=== PATIENT | male | born 1975 | race African-American/Black ===

== ENCOUNTER 2017-08-26 07:38 | Day surgery (SDC) | payer OTHER ==
[2017-08-25 13:47] VITALS: BMI 20.7
[2017-08-26 10:19] VITALS: BP 154/96; TEMP 98.2
--- NOTE | 2017-08-26 11:12 | SPC ---
LEFT UPPER EXTREMITY DIALYSIS FISTULOGRAM: Date: 08/26/17 HISTORY: Renal failure. Poor functionating of dialysis fistula. FINDINGS: After explaining the procedure and answering all questions, the left upper extremity was prepped and draped in the usual sterile fashion. Sterile technique, buffered local anesthesia, and a 22 gauge nee dle were used to carefully access the left forearm cephalic fistula just above the level of the wrist . A 4 Welsh sheath was placed for serial imaging. There is good flow and clearing throughout the left forearm cephalic fistula with small collaterals j ust below the level of the elbow. At the level of the antecubital fossa, the flow crosses to the ceph alic and basilic outflow. The cher[place] cephalic vein is extremely small. Reflux angiogram shows arterial anastomosis to be widely patent. There is good flow into the superior vena cava. No evidence of stricture or obstruction. No evidence of thrombus. Catheter was removed and hemostasis was obtained using direct pressure. The patient tolerated the pro cedure well and was eventually dismissed in good condition. IMPRESSION: Good flow and function of left upper extremity dialysis fistula, as detailed above. POS: [facility]
== END 2017-08-26 09:10 | disposition home or self-care (01) ==
LOC: SPEC 07:38
PROVIDERS: ATTEND Internal Medicine Nephrology
PROC: B51W1ZZ Fluoroscopy of Dialysis Shunt/Fistula using Low Osmolar Contrast (ICD-10-PCS; principal; 2017-08-26)
DX: T82.898A Other specified complication of vascular prosthetic devices, implants and grafts, initial encounter (principal); N18.9 Chronic kidney disease, unspecified; Z79.82 Long term (current) use of aspirin; Z79.899 Other long term (current) drug therapy
CPT/HCPCS: 36901

== ENCOUNTER 2018-10-21 10:06 | Outpatient (CLI) | payer OTHER ==
--- NOTE | 2018-10-21 10:50 | RAD ---
TWO VIEWS CHEST: Comparison: 06-14-16 History: Tuberculosis evaluation. FINDINGS: Two views of the chest show normal sized cardiomediastinal silhouette. There is no evidence of consol idation, mass, or pleural effusion. The bones are unremarkable. IMPRESSION: No evidence of acute cardiopulmonary disease. POS: [facility]
== END 2018-10-21 10:07 | disposition home or self-care (01) ==
LOC: RAD 10:06
PROVIDERS: ATTEND Family Medicine
DX: Z11.1 Encounter for screening for respiratory tuberculosis (principal)
CPT/HCPCS: 71046

== ENCOUNTER 2019-07-15 17:33 | Inpatient (IN) | payer OTHER ==
[~2019-07-15 17:33] MED LIST: Iopamidol 370 76% 100 ML VIAL ONE; Iopamidol 370 76% 50 ML VIAL FS ONE
[2019-07-15] MEDS ORDERED: Dextrose 50% Abboject 50 ML SYRINGE ONE (17:47)
[2019-07-15] MEDS ORDERED: Calcium Chloride 1 GM/10 ML Abboject SYRINGE ONE (17:52)
[2019-07-15 18:14] LABS: Hemoglobin 3.2 g/dL (14.0-18.0); Mean Corpuscular HGB CONC 31.7 g/dL (32.0-36.0); Mean Corpuscular Hemoglobin 28.6 pg (27.0-31.0); Mean Corpuscular Volume 90.2 fL (78.0-98.0); Mean Platelet Volume 7.9 fL (7.4-10.4); Platelet Count 155 thou/uL (130-400); RBC Distribution Width 18.9 % (11.5-14.5); Red Blood Cell (RBC) Count 1.11 mill/uL (4.70-6.10)
[2019-07-15 18:20] LABS: Phosphorus 9.6 mg/dL (2.3-4.7)
--- NOTE | 2019-07-15 18:22 | RAD ---
CHEST ONE VIEW: 07/15/19 INDICATION: Altered mental status. COMPARISON: Two view chest radiograph 10/21/18. FINDINGS: There is cardiomegaly, pulmonary vascular congestion, small bilateral pleural effusions. There is anibal pected bibasilar atelectasis. No pneumothorax evident. No acute osseous abnormality is evident. IMPRESSION: Cardiomegaly with pulmonary vascular congestion and small bilateral pleural effusions. Recommend payton elation for volume overload or CHF. POS: [facility]
[2019-07-15 18:25] LABS: ALT (SGPT) 81 U/L (8-55); AST (SGOT) 73 U/L (5-34); Albumin 3.3 g/dL (3.5-5.0); Alkaline Phosphatase 51 U/L (40-110); Anion Gap 37 mmol/L (10-20); BUN (Urea Nitrogen) 79 mg/dL (8.9-20.6); Bilirubin, Total 0.6 mg/dL (0.2-1.2); Calc. Creatinine Clearance 0 mL/min (70-130); Calcium 8.1 mg/dL (7.8-10.44); Carbon Dioxide 11 mmol/L (22-29); Chloride 97 mmol/L (98-107); Estimated GFR-MDRD 5; Globulin 2.1 g/dL (2.4-3.5); Magnesium 2.5 mg/dL (1.6-2.6); Potassium 5.4 mmol/L (3.5-5.1); Protein, Total 5.4 g/dL (6.0-8.3); Sodium 140 mmol/L (136-145)
[2019-07-15 18:34] LABS: Glucose 28 mg/dL (70-105)
[2019-07-15 18:35] LABS: Band 22 % (5-11); Hypochromia SLIGHT = 6-15 cells (100X) (0-5/hpf); Lymphocytes 6 % (21-51); MDiff Complete? YES; Monocytes 4 % (0-10); Neutrophil 68 % (42-75); Platelet Morphology Comment Appears Adequate; Polychromasia MODERATE = 3-4 cells (100X) (0-2/hpf); Reflex for Review?? YES; Schistocytes SLIGHT = 2-5 cells (100X) (0-1/hpf); Target Cells SLIGHT = 2-5 cells (100X) (0-1/hpf); Tear Drops SLIGHT = 2-5 cells (100X) (0-1/hpf)
--- NOTE | 2019-07-15 18:58 | CT ---
EXAM: CT ABDOMEN AND PELVIS HISTORY: Abdominal pain. Weakness. Shortness of breath. Right lower quadrant pain. COMPARISON: None Correlation: Aortic dissection protocol 03/19/2012 Procedure: Multiple contiguous axial images were obtained and a CT of the abdomen and pelvis with IV contrast. C oronal reformats were performed. FINDINGS: Lower Chest: Small to moderate bilateral hyperdense pleural effusions. Adjacent lung consolidation du e to atelectasis, aspiration or pneumonia Vessels: Normal caliber aorta. No periaortic fat stranding Heart: Cardiomegaly. Hypertrophy of the left ventricle. No significant pericardial fluid Abdomen: Portal vein:Patent Gallbladder: No calcified gallstones. Normal caliber wall. Liver: 0.5 cm hypodensity in the left hepatic lobe. 0.6 cm hypodensity in the right hepatic lobe. No enhancing masses in the liver. Pancreas: within normal limits. Spleen: within normal limits. Adrenals: within normal limits. Kidneys: Multiple mixed attenuation cyst occupy the left and right kidney. There is a large right per inephric mixed attenuation mass which may represent a large perinephric hematoma from a ruptured cyst. This mixed attenuation focus appears to be external to the right kidney and is likely contained in the right perinephric space. There is anterior displacement of the right kidney. There is stretching of the right renal artery and right renal vein. There is also associated mass effect upon the inferior vena cava. There are 2 small foci of hyperdensity which may represent blush of extravasated contrast along the inferior pole of the right kidney. The area of blush contrast measure s 1.3 x 0.6 cm. Overall, this hematoma measures 11.8 x 8.1 x 12.3 cm. Adjacent complex fluid attenuation is noted. Bilaterally no definite obstructive uropathy. Peritoneum: Extensive complex fluid throughout the abdomen. There is displacement of multiple small b owel loops and colon. Bowel: Limited evaluation by the absence of oral contrast. No evidence of high-grade bowel obstructio n. Limited evaluation of the ileocecal junction. Appendix is difficult to appreciate as is the cecal apex. Mesentery and Retroperitoneum: No obvious lymphadenopathy. Abdominal Wall: Anterior abdominal wall containing a segment of nonobstructed colon through the defec t. Pelvis: Reproductive Organs: Reproductive organs are unremarkable. Pelvis: Extensive hyperdense fluid in the pelvis. Bladder: Bladder wall is thickened. Bones: No lytic or blastic lesions. IMPRESSION: 1. Multiple renal cortical mixed attenuation density, likely secondary to dialysis. 2. Mixed attenuation right perinephric mass likely representing a perinephric hematoma that is confin ed to the perinephric space. Small blush of contrast may represent active extravasation. 3. Complex fluid in the abdomen or pelvis. 4. Mass effect upon the inferior vena cava with narrowing. There is stretching and splaying of the ri ght renal artery and vein. There is displacement of multiple small bowel loops. 5. Results study discussed with Dr. Boyd 07/15/2019 at 6:55 PM Code CR Transcribed Date/Time: 07/15/2019 7:18 PM
[2019-07-15] MEDS ORDERED: Piperacillin/Tazobactam 4.5 GM VIAL ONE (19:12)
[2019-07-15] MEDS ORDERED: Metoprolol Tartrate 5 MG/5 ML VIAL ONE ×2 (20:25→20:45)
[2019-07-15 20:44] LABS: Actual Bicarbonate (HCO3a) 15.5 mEq/L (22-28); Analyzer IN Cardio OR; Base Excess (BEa) -9.3 mEq/L (-2.0 to +3.0); CO2 Tension 29.1 mmHg (35.0-45.0); Calcium, Ionized 0.93 mmol/L (1.12-1.30); Carboxyhemoglobin (COHb) 1.1 gm% (0.0-3.0); Hemoglobin (Hb) 6.4 g/dL (14.0-18.0); O2 Tension (PaO2) 77.1 mmHg (80.0-100.0); Potassium - ABG Lab 5.11 mmol/L (3.70-5.30); pH, Arterial 7.35 (7.35-7.45)
[2019-07-15] MEDS ORDERED: Dextrose 50% Abboject 50 ML SYRINGE SLOW IVP PRN (20:51)
[2019-07-15] MEDS ORDERED: Dextrose 5% in Water 1,000 ML IV PRN (20:51)
[2019-07-15] MEDS ORDERED: hydrALAZINE 20 MG/ML VIAL ONE (21:02)
[2019-07-15 22:11] LABS: INR-International Normal Ratio 1.8; PTT 29.8 SEC (22.9-36.1); Prothrombin Time 21.1 SEC (12.0-14.7)
[2019-07-15 22:33] LABS: Anisocytosis SLIGHT = 6-15 cells (100X) (0-5/hpf); Band 19 % (5-11); Hemoglobin 7.5 g/dL (14.0-18.0); Lymphocytes 4 % (21-51); MDiff Complete? YES; Mean Corpuscular HGB CONC 33.5 g/dL (32.0-36.0); Mean Corpuscular Hemoglobin 30.1 pg (27.0-31.0); Mean Corpuscular Volume 89.8 fL (78.0-98.0); Mean Platelet Volume 8.1 fL (7.4-10.4); Monocytes 3 % (0-10); Neutrophil 74 % (42-75); Platelet Count 97 thou/uL (130-400); RBC Distribution Width 14.6 % (11.5-14.5); Red Blood Cell (RBC) Count 2.49 mill/uL (4.70-6.10)
[2019-07-15 22:56] LABS: Lactic Acid 5.8 mmol/L (0.5-2.2)
[2019-07-15] MEDS: hydrALAZINE 25 MG TAB PO SCH (23:26)
[2019-07-16] MEDS ORDERED: Ondansetron PF 4 MG/2 ML Vial IVP PRN (01:18)
[2019-07-16] MEDS ORDERED: Ondansetron ODT 4 MG TAB PO PRN (01:18)
--- NOTE | 2019-07-16 01:55 | PDOC.HOSPP ---
- Subjective Encounter Date: 07/16/19 Encounter Time: 01:00 Subjective: Patient seen and examined. No new complaints. consult placed for medical management. Case of an 43y/o male with pmhx of esrd on h/d, polycystic kidney disease and hypertension who comes to hospital due to generalize weakness, sob and abdominal pain of a few days of duration. patient he was doing relatively well until 2-3 days ago when abdominal pain and sob start to get worse until today when its was unbearable for which he came to hospital for evaluation. at the ed patient had a ct and showed Right ruptured kidney cyst with a hg of 3. pt was taken emergently to or by dr boyle who placed 3 coils to stop the bleeding. dr huertas pts economic development director was called for further management and hospitalist were consulted for medical management. - Objective Vital Signs & Weight: Vital Signs (12 hours) Temp Pulse Ox 07/16/19 00:00 98.8 F 07/15/19 22:39 92 L 07/15/19 22:00 80 L 07/15/19 21:42 99.0 F Weight Weight 140 lb Most Recent Monitor Data Heart Rate from ECG 99 NIBP 169/108 NIBP BP-Mean 139 Respiration from ECG 24 SpO2 100 I&O: 07/14/19 07/15/19 07/16/19 06:59 06:59 06:59 Output Total 30 Balance -30 Result Diagrams: 07/15/19 21:50 07/15/19 17:45 Additional Labs: Accuchecks 07/16/19 07/15/19 07/15/19 00:26 21:41 18:26 POC Glucose 88 62 L 106 07/15/19 17:49 POC Glucose Less than 35 L* Hospitalist ROS - Review of Systems All other systems reviewed; all pertinent +/- noted in HPI/Subj - Medication Medications: Active Medications Generic Name Dose Route Start Last Admin Trade Name Freq PRN Reason Stop Dose Admin Dextrose/Water 25 gm 07/15/19 20:51 07/15/19 21:40 Dextrose 50% SLOW IVP 25 gm PRN PRN Administration Hypoglycemia Hydralazine HCl 25 mg 07/15/19 21:00 07/15/19 23:26 Apresoline PO Not Given TID SHARAD - Exam General Appearance: ill appearing Eye: PERRL, anicteric sclera ENT: normocephalic atraumatic, no oropharyngeal lesions Neck: supple, symmetric, no JVD, no thyromegaly Heart: RRR, no murmur, no gallops, no rubs Respiratory: CTAB, no wheezes, no rales Gastrointestinal: soft, non-distended, normal bowel sounds, tender to palpation , voluntary guarding Extremities: no cyanosis, no clubbing Skin: normal turgor, no lesions Neurological: cranial nerve grossly intact, normal sensation to touch, no focal deficits Musculoskeletal: normal tone, normal strength Psychiatric: normal affect, normal behavior, A&O x 3 Hosp A/P (1) Ruptured cyst of kidney Code(s): Q61.00 - CONGENITAL RENAL CYST, UNSPECIFIED Status: Acute (2) Anemia Code(s): D64.9 - ANEMIA, UNSPECIFIED Status: Acute (3) ESRD (end stage renal disease) Code(s): N18.6 - END STAGE RENAL DISEASE Status: Acute (4) Hypertension Code(s): I10 - ESSENTIAL (PRIMARY) HYPERTENSION Status: Acute Qualifiers: Hypertension type: secondary to other renal disorders Qualified Code(s): I15.1 - Hypertension secondary to other renal disorders; N28.89 - Other specified disorders of kidney and ureter (5) Leukocytosis Code(s): D72.829 - ELEVATED WHITE BLOOD CELL COUNT, UNSPECIFIED Status: Acute - Plan ruptures cyst - s/p coil placement with resolution of active bleeding. monitor hg, follow dr boyle recommendations anemia - s/p 4prbc transfusion, conitnue to monitor hg transfuse as needed esrd - patient states has missed his last 2-3 treatments, currtly receiving h/d dr huertas on case, following recommendations htn - pt w hx of hypertension, due to low hg and pt currently receiving h/d will hold medication for now, re-start when he is more stable leukocytosis - elevated wbc could be secondary to stress, ct did show possible atelectasia vs aspiration vs pnuemonia, will cover prophylactically w zosyn send cultures and procalcitonin, adjust tx as needed
[2019-07-16 02:12] LABS: Hep B Core Total Ab Non-Reactive (NonReactive); Hep B Core Total Index 0.13 S/CO (0-0.79)
--- NOTE | 2019-07-16 02:14 | CON ---
DATE OF CONSULTATION: REASON FOR CONSULTATION: Hyperkalemia. HISTORY OF PRESENT ILLNESS: This is a very noncompliant 43-year-old gentleman who had missed dialysis, presented to the hospital for renal bleed. The patient's potassium was 5.4. The patient last had dialysis more than one week ago and the patient was hypertensive. The patient has a history of missing dialysis on multiple occasions. PAST MEDICAL HISTORY: Significant for hypertension, end-stage kidney disease noncompliance, polycystic kidney disease, congestive heart failure, history of dialysis SOCIAL HISTORY: No alcohol or drug use. FAMILY HISTORY: Negative for ESRD. ALLERGIES: REVIEWED. MEDICATIONS: Home medication list reviewed. Hospital medication list reviewed. REVIEW OF SYSTEMS: 15-point review of system was performed and negative except for positives noted above. HEENT: Eyes intact, no diplopia. Ears: No hearing loss or earache. Nose: No discharge or bleeding. Chest: No cough or phlegm. Abdomen: No nausea or vomiting. Genitourinary: No hematuria. No Craig catheter. Musculoskeletal: No low back pain. No joint swelling or pain. Neurological: No syncope. No seizures. Skin: No complaints of rash or itching. Psychiatric: No depression. Constitutional: No weight loss or loss of appetite. PHYSICAL EXAMINATION: GENERAL: The patient is awake and alert. VITAL SIGNS: Afebrile, pulse 75, breathing 16, blood pressure was 200/100. HEENT: Head normocephalic and atraumatic. Eyes intact, no ulcers. Nose intact, no ulcers. Ears intact, no ulcers. NECK: Supple. No JVD. CHEST: Symmetrical and clear. CARDIOVASCULAR: Shows S1 and S2, no rub, no murmur. GASTROINTESTINAL: Abdomen is soft, bowel sounds positive. Extremities: Show no edema or ulcers. SKIN: Shows no rash or petechiae. MUSCULOSKELETAL: Shows no joint swelling or stiffness. GENITOURINARY: Shows no Craig or CVA tenderness. NEUROLOGIC: Motor intact. Cranial nerves intact. LABORATORY DATA: Reviewed. ASSESSMENT AND PLAN: 1. Stage 6 chronic kidney disease. Plan dialysis. 2. Hypertension and anemia. We will transfuse blood. We will order stat hemoglobin. Medication based on GFR appropriate. Prognosis is poor. Noncompliance is a major issue. services manager and Adult Protective Services will be consulted. Job ID: [id number]
[2019-07-16 02:17] LABS: HBSAg Index 0.28 S/CO (0-0.99); Hep B Surf Ag Non-Reactive S/CO (NonReactive); Hep C IgG Ab Non-Reactive (NonReactive); Hep C Index 0.08 S/CO (0-0.79)
[2019-07-16 02:18] LABS: HBSAB Concentration 309.96 mIU/mL; Hep B Surf AB Reactive (NonReactive)
--- NOTE | 2019-07-16 02:22 | OP ---
DATE OF PROCEDURE: 07/15/2019 PREOPERATIVE DIAGNOSIS: Right renal hemorrhage related to ruptured cyst. PROCEDURE: Abdominal aortogram, selective renal artery catheterization and multiple coilings of the right renal artery. ANESTHESIA: 1% lidocaine. DESCRIPTION OF PROCEDURE: After prepping and draping, right femoral arterial 5-Estonian catheter was placed under ultrasound guidance and a left femoral 5-Estonian venous line to allow blood transfusion. Following this, a Contra catheter was advanced into the aorta and flush injection obtained with the suboptimal imaging. A Norton catheter was then advanced and wire was placed into the right renal artery. However, the catheter would not advance. BHAGAT catheter was then tried and finally a multipurpose catheter was used to engage the right renal artery. Angiograms revealed multiple branches with no obvious extravasation. After this had been accomplished, multiple interlock stents were placed through a microcatheter that resided within the multipurpose catheter including 5 x 8, initially 6 x 10, 8 x 20, 8 x 20, and 5 x 15. This effectively occluded branch vessels, as well as the main renal artery for about 2.5 cm. Although there was still flow at the conclusion of the procedure, it is anticipated that these coils will result in thrombosis as the patient's hemoglobin and coagulation studies approach normal values. The patient is to be taken to the ICU with sheath sewn in place. Job ID: [id number]
[2019-07-16] MEDS: hydrALAZINE 20 MG/ML VIAL SLOW IVP PRN ×3 (03:51→10:02)
[2019-07-16 04:28] LABS: Band 15 % (5-11); Hemoglobin 8.5 g/dL (14.0-18.0); Lymphocytes 5 % (21-51); MDiff Complete? YES; Mean Corpuscular HGB CONC 33.8 g/dL (32.0-36.0); Mean Corpuscular Hemoglobin 29.4 pg (27.0-31.0); Mean Corpuscular Volume 87.2 fL (78.0-98.0); Mean Platelet Volume 8.8 fL (7.4-10.4); Monocytes 4 % (0-10); Neutrophil 76 % (42-75); Platelet Count 109 thou/uL (130-400); Platelet Morphology Comment Appears Decreased; RBC Distribution Width 14.9 % (11.5-14.5); Red Blood Cell (RBC) Count 2.88 mill/uL (4.70-6.10); White Blood Cell (WBC) Count 28.9 thou/uL (4.8-10.8)
[2019-07-16 05:05] LABS: ALT (SGPT) 129 U/L (8-55); AST (SGOT) 107 U/L (5-34); Albumin 4.1 g/dL (3.5-5.0); Alkaline Phosphatase 61 U/L (40-110); Anion Gap 23 mmol/L (10-20); BUN (Urea Nitrogen) 37 mg/dL (8.9-20.6); Bilirubin, Total 1.3 mg/dL (0.2-1.2); Calc. Creatinine Clearance 14 mL/min (70-130); Calcium 9.2 mg/dL (7.8-10.44); Carbon Dioxide 23 mmol/L (22-29); Chloride 98 mmol/L (98-107); Estimated GFR-MDRD 12; Globulin 2.9 g/dL (2.4-3.5); Glucose 77 mg/dL (70-105); Potassium 3.8 mmol/L (3.5-5.1); Sodium 140 mmol/L (136-145)
[2019-07-16] MEDS: Piperacillin/Tazobactam 2.25 GM in Sodium Chloride 0.9% 100 ML IVPB SCH ×3 (05:58→21:47)
[2019-07-16] MEDS: HYDROcodone/Acetaminophen 5/325 mg Tablet PO PRN ×3 (05:59→22:00)
[2019-07-16] MEDS: hydrALAZINE 25 MG TAB PO SCH ×3 (09:53→21:46)
[2019-07-16] MEDS: Carvedilol 25 MG TAB PO SCH ×2 (09:53→16:36)
[2019-07-16] MEDS: Acetaminophen 325 MG TAB PO PRN (10:29)
[2019-07-16 13:03] VITALS: BMI 18.9
--- NOTE | 2019-07-16 13:30 | PRG ---
DATE OF SERVICE: 07/16/2019 SUBJECTIVE: A 43-year-old gentleman being seen for end-stage renal disease. The patient denies nausea, vomiting, or chest pain. OBJECTIVE: GENERAL: The patient is awake and alert. VITAL SIGNS: Afebrile, pulse 75, breathing at 16, blood pressure 135/65. HEENT: Head normocephalic and atraumatic. Eyes intact, no ulcers. Nose intact, no ulcers. Ears intact, no ulcers. NECK: Supple. No JVD. CHEST: Symmetrical and clear. CARDIOVASCULAR: Shows S1 and S2, no rub, no murmur. GASTROINTESTINAL: Abdomen is soft, bowel sounds positive. EXTREMITIES: Show no edema or ulcers. SKIN: Shows no rash or petechiae. MUSCULOSKELETAL: Shows no joint swelling or stiffness. GENITOURINARY: Shows no Craig or CVA tenderness. NEUROLOGIC: Motor intact. Cranial nerves intact. PERTINENT LABORATORY DATA: Labs showed hemoglobin 8.5. Potassium 3.8. ASSESSMENT AND PLAN: 1. Stage 3 chronic kidney disease, stable. 2. Hypertensive anemia, stable. 3. Metabolic acidosis, stable. We will plan dialysis tomorrow. Job ID: [id number]
--- NOTE | 2019-07-16 13:47 | PDOC.EVN ---
Event Note - Event Note Event Note: Inherited patient this morning. Complains of mild right groin pain at site of catheter insertion. Received Blair shortly prior to encounter. No hematoma or signs of infection at site, genital exam unremarkable as well. Per nurse, plan to take out catheter per Dr. Daniels this morning. HgB and HD stable.
--- NOTE | 2019-07-16 14:18 | CON ---
DATE OF CONSULTATION: HISTORY OF PRESENT ILLNESS: This is a 43-year-old gentleman with end-stage renal disease, previous respiratory failure, who presented to the hospital with abdominal pain and weakness. He has been here numerous times in the hospital. His chest x-ray on admission showed a left pleural effusion. CT abdomen showed a perinephric hematoma. He was then taken to surgery by Dr. Daniels, cardiovascular surgeon, right renal hemorrhage related to a ruptured cyst, abdominal aortogram, selective renal artery catheterization, multiple coilings in the right renal artery were done. This morning, he said he is having less pain and less shortness of breath. PAST MEDICAL HISTORY: Pertinent for otherwise end-stage renal disease, hypertension, polycystic kidney disease, hyperlipidemia, noncompliance, previous substance abuse, previous tobacco abuse. PREVIOUS SURGERIES: Multiple access. REVIEW OF SYSTEMS: Otherwise, negative. PHYSICAL EXAMINATION: VITAL SIGNS: His saturations are 99% on 3 L. Blood pressure was elevated at 169/90, pulse , respiratory rate 18. CHEST: Decreased breath sounds. No wheezing. CARDIAC: Normal S1 and S2. No gallops. ABDOMEN: No masses. LABORATORY DATA: White count 28,000, 26, platelet count is 109. His creatinine is 6, BUN 37. DIAGNOSTIC STUDIES: X-rays left pleural effusion. ASSESSMENT AND PLAN: Status post emergency ruptured hemorrhagic cyst with emergency abdominal aortogram, selective renal artery catheterization and coiling of the right renal artery, chronic renal failure, on dialysis, previous history of substance abuse, probably chronic obstructive pulmonary disease, leukocytosis. PLAN: 1. We will follow while in the ICU. 2. Nephrology as per dialysis, continue on home medications for his blood pressure. He is on empiric antibiotics. We will follow. Consultation note, 70 minutes, 50% direct patient care. Job ID: [id number]
[2019-07-17 04:13] LABS: #Lymphocytes 0.7 thou/uL (1.20-3.40); #Monocytes 1.8 thou/uL (0.11-0.59); #Neutrophils 18.8 thou/uL (1.40-6.50); %Eosinophils 0.1 % (0.0-10.0); %Lymphocytes 3.2 % (21.0-51.0); %Monocytes 8.4 % (0.0-10.0); %Neutrophils 88.3 % (42.0-75.0); Hemoglobin 6.4 g/dL (14.0-18.0); Mean Corpuscular Hemoglobin 30.2 pg (27.0-31.0); Mean Corpuscular Volume 88.9 fL (78.0-98.0); Mean Platelet Volume 8.6 fL (7.4-10.4); Platelet Count 83 thou/uL (130-400); Red Blood Cell (RBC) Count 2.12 mill/uL (4.70-6.10); White Blood Cell (WBC) Count 21.3 thou/uL (4.8-10.8)
[2019-07-17 04:25] LABS: Anion Gap 19 mmol/L (10-20); BUN (Urea Nitrogen) 61 mg/dL (8.9-20.6); Calc. Creatinine Clearance 8 mL/min (70-130); Calcium 7.9 mg/dL (7.8-10.44); Carbon Dioxide 25 mmol/L (22-29); Chloride 96 mmol/L (98-107); Estimated GFR-MDRD 8; Glucose 91 mg/dL (70-105); Magnesium 2.2 mg/dL (1.6-2.6); Potassium 4.6 mmol/L (3.5-5.1); Sodium 135 mmol/L (136-145)
[2019-07-17] MEDS: Piperacillin/Tazobactam 2.25 GM in Sodium Chloride 0.9% 100 ML IVPB SCH ×3 (05:09→21:03)
[2019-07-17] MEDS: HYDROcodone/Acetaminophen 5/325 mg Tablet PO PRN (07:46)
[2019-07-17] MEDS: hydrALAZINE 25 MG TAB PO SCH ×3 (07:47→20:59)
[2019-07-17] MEDS: Carvedilol 25 MG TAB PO SCH ×2 (07:47→18:22)
--- NOTE | 2019-07-17 07:49 | PDOC.HOSPP ---
- Subjective Encounter Date: 07/17/19 Encounter Time: 08:00 Subjective: no overnight evnets. This morning, complains of persistent but improved right groin pain that he had prior to intervention. No other complaints - Objective Vital Signs & Weight: Vital Signs (12 hours) Temp Pulse BP Pulse Ox 07/17/19 07:47 84 148/95 H 07/17/19 04:00 98.4 F 07/17/19 00:00 98.5 F 07/16/19 21:46 84 148/95 H 07/16/19 20:00 98.3 F 07/16/19 19:57 98 Weight Admit Weight 140 lb Weight 129 lb 3.054 oz Most Recent Monitor Data Heart Rate from ECG 82 NIBP 163/97 NIBP BP-Mean 119 Respiration from ECG 25 SpO2 95 I&O: 07/16/19 07/17/19 07/18/19 06:59 06:59 06:59 Intake Total 100 1411 25 Output Total 40 400 Balance 60 1011 25 Result Diagrams: 07/17/19 03:41 07/17/19 03:41 Additional Labs: Accuchecks 07/17/19 07/16/19 07/16/19 05:27 20:42 17:15 POC Glucose 97 110 104 07/16/19 07/16/19 13:45 05:57 POC Glucose 84 86 Hospitalist ROS - Review of Systems Constitutional: denies: chills, sweats, weakness, malaise Respiratory: denies: shortness of breath, hemoptysis Cardiovascular: denies: chest pain, palpitations, orthopnea, paroxysmal noc. dyspnea Gastrointestinal: reports: abdominal pain. denies: nausea, vomiting, diarrhea, constipation, hematochezia - Medication Medications: Active Medications Generic Name Dose Route Start Last Admin Trade Name Freq PRN Reason Stop Dose Admin Acetaminophen 650 mg 07/15/19 20:51 07/16/19 10:29 Tylenol PO 650 mg Q4H PRN Administration Headache/Fever/Mild Pain (1-3) Hydrocodone Bitart/Acetaminophen 1 tab 07/15/19 20:51 07/17/19 07:46 Normanna 5/325 PO 1 tab Q4H PRN Administration Moderate Pain (4-6) Carvedilol 25 mg 07/16/19 08:00 04/26/20 07:47 Coreg PO 25 mg BID-WM SHARAD Administration Dextrose/Water 25 gm 07/15/19 20:51 07/15/19 21:40 Dextrose 50% SLOW IVP 25 gm PRN PRN Administration Hypoglycemia Hydralazine HCl 25 mg 07/15/19 21:00 07/17/19 07:47 Apresoline PO 25 mg TID SHARAD Administration Hydralazine HCl 10 mg 07/15/19 21:00 07/16/19 10:02 Apresoline SLOW IVP 10 mg Q15MIN PRN Administration systolic bp >170 Piperacillin Sod/Tazobactam 100 mls @ 200 mls/hr 07/16/19 06:00 07/17/19 05: 09 Sod 2.25 gm/ Sodium Chloride IVPB 100 mls Q8HR SHARAD Administration Ondansetron HCl 4 mg 07/16/19 01:18 07/16/19 01:58 Zofran Odt PO 4 mg Q6H PRN Administration Nausea/Vomiting Ondansetron HCl 4 mg 07/16/19 01:18 07/16/19 10:29 Zofran IVP 4 mg Q6H PRN Administration Nausea/Vomiting - Exam General Appearance: NAD, awake alert Eye - other findings: pale conjunctivae ENT: dry oral mucosa Heart: RRR, no murmur, no gallops, no rubs Respiratory: CTAB, no wheezes, no rales, no ronchi Gastrointestinal: soft, normal bowel sounds Gastrointestinal - other findings: mildly distended. right groin tenderness, no signs of hematoma or inflammat Psychiatric: normal affect, normal behavior, A&O x 3 Hosp A/P - Plan right renal ruptures cyst - s/p coil placement; sheaths removed (07/15); Anemia - HgB 8.5 (07/15) -> 6.4 (07/16); no report of overt bleeding; positive I/ O so hemodilution might be factor; tranfuse 1 x PRBC and recheck HgB and HcT Troponinemia - likely result of demand ischemia due to anemia; patient has no complains consistent with ACS; not candidate for anticoagulation regardless ESRD - HD as per nephrology HTN - curently on coreg, hydralazine scheduled and PRN; if HgB s/p PRBC not responsive or signs of active bleeding, recommend to stop scheduled and continue hydralazine IVP PRN If patient's HgB and HD stable, can restart low dose ACEI (lisinopril 10mg PO daily); continue to hold isosorbide and amlodipine Leukocytosis - intraabdominal infection due to ruptured cyst or/and stress, bone marrow stimulation in context of severe blood loss, suggested by polychromasia and elevated RDW among other findings; continue zosyn HFrEF - last echo 2016, EF 40-45%; per cardiology note nonischemic cardiomyopathy; CXR 07/14 showing cadiomegaly, pulmonary congestion; Currently on coreg, can start lisinopril when HgB and HD stable Immunity to Hepatitis B - consistent with labs
--- NOTE | 2019-07-17 10:32 | PRG ---
DATE OF SERVICE: 07/17/2019 SUBJECTIVE: A 43 year old gentleman, status post emergency abdominal aortogram with coiling of his renal arteries, doing better, less pain, less shortness of breath. OBJECTIVE: VITAL SIGNS: Temperature 99, pulse 81, respirations 18, blood pressure 140/87. CHEST: No wheezing or crackles. CARDIAC: Normal S1, S2. ABDOMEN: No masses. LABORATORY DATA: white count 21,000. ASSESSMENT: Renal failure, leukocytosis, possibly sepsis. Cultures are negative. I will continue Zosyn for the time being. PLAN: PT, supportive care, can probably be transferred out of the ICU any time. Job ID: [id number]
--- NOTE | 2019-07-17 15:57 | PRG ---
DATE OF SERVICE: 07/17/2019 SUBJECTIVE: A 43-year-old male, being seen for end-stage kidney disease. The patient denies any nausea, vomiting, or chest pain. OBJECTIVE: GENERAL: The patient is awake and alert. VITAL SIGNS: Afebrile, pulse 75, breathing at 16, blood pressure was 147/83. HEENT: Head normocephalic and atraumatic. Eyes intact, no ulcers. Nose intact, no ulcers. Ears intact, no ulcers. NECK: Supple. No JVD. CHEST: Symmetrical and clear. CARDIOVASCULAR: Shows S1 and S2, no rub, no murmur. GASTROINTESTINAL: Abdomen is soft, bowel sounds positive. EXTREMITIES: show no edema or ulcers. SKIN: Shows no rash or petechiae. MUSCULOSKELETAL: Shows no joint swelling or stiffness. GENITOURINARY: Shows no Craig or CVA tenderness. NEUROLOGIC: Motor intact. Cranial nerves intact. LABORATORY DATA: Labs show hemoglobin 6.4. Potassium 4.6. ASSESSMENT AND PLAN: 1. Stage 6 chronic kidney disease. Plan dialysis. 2. Hypertension, stable. 3. Anemia. We will give 2 units of blood with dialysis stat. Job ID: [id number]
[2019-07-17 18:08] LABS: Hemoglobin 9.6 g/dL (14.0-18.0)
[2019-07-17] MEDS: Acetaminophen 325 MG TAB PO PRN (20:59)
[2019-07-17] MEDS: hydrALAZINE 20 MG/ML VIAL SLOW IVP PRN (21:11)
[2019-07-18] MEDS: HYDROcodone/Acetaminophen 5/325 mg Tablet PO PRN (00:34)
[2019-07-18 01:09] LABS: Hemoglobin 8.8 g/dL (14.0-18.0)
[2019-07-18] MEDS: hydrALAZINE 20 MG/ML VIAL SLOW IVP PRN (04:39)
[2019-07-18] MEDS: Piperacillin/Tazobactam 2.25 GM in Sodium Chloride 0.9% 100 ML IVPB SCH ×2 (04:46→15:04)
[2019-07-18] MEDS: hydrALAZINE 25 MG TAB PO SCH ×3 (08:25→19:53)
[2019-07-18] MEDS: Carvedilol 25 MG TAB PO SCH ×2 (08:25→17:47)
[2019-07-18] MEDS: Docusate 100 MG CAP PO SCH ×2 (08:26→19:53)
[2019-07-18 09:22] LABS: Hemoglobin 9.4 g/dL (14.0-18.0)
--- NOTE | 2019-07-18 09:42 | PRG ---
DATE OF SERVICE: 07/18/2019 SUBJECTIVE: This morning, he is . No pain. No shortness of breath. OBJECTIVE: VITAL SIGNS: Temperature 98, pulse 80, blood pressure . CHEST: Decreased breath sounds. CARDIAC: Normal S1 and S2. No gallops. ABDOMEN: No masses. ASSESSMENT AND PLAN: 1. Chronic renal failure, on dialysis. 2. Ruptured cyst hemorrhage, status post angiogram. 3. Pain improved. 4. Pulmonary will follow at a distance. 5. Disposition as per primary care physician. Job ID: [id number]
--- NOTE | 2019-07-18 11:21 | CON ---
DATE OF CONSULTATION: HISTORY OF PRESENT ILLNESS: Herman Rahman, 43-year-old black male, lives with his mother, dialyzes at [facility] on Thursday, Thursday, and Thursday at 2 p.m. Has chronically prolapsed hemorrhoids. They occasionally bleed, but not much. He has never had a colonoscopy. These hemorrhoids have been prolapsed, and he cannot reduce them. They have been in this condition for years. The patient, on this admission, admitted with a hemoglobin of 3, received multiple transfusions, underwent embolization of the right kidney due to a ruptured cyst related to his polycystic kidney disease. Dr. Daniels performed an embolization procedure. The patient has been stable since that time. The patient's licensed optician is Dr. Rosa. ALLERGIES: NONE. SOCIAL HISTORY: Tobacco, none. Alcohol, none. MEDICATIONS: Outpatient; isosorbide, , aspirin, amlodipine, hydralazine, Protonix, and carvedilol. PAST SURGICAL HISTORY: Left Latesha fistula that I provided access in 2016, this is matured. He had a right groin Trialysis catheter in February 2016 that I placed on March 19, 2016. The patient had a cuffed tunneled dialysis catheter placed in March 2016. He had a left Latesha fistula in 04/15/2016 and removal of his hemodialysis catheter. PAST MEDICAL HISTORY: Polycystic kidneys, hypertension, and end-stage renal disease. REVIEW OF SYSTEMS: Ten-point noncontributory. FAMILY HISTORY: Polycystic kidney disease. PHYSICAL EXAMINATION: VITAL SIGNS: 5 feet 9 inches, 129 pounds, BMI 19. Pulse 85, blood pressure 191/92. HEAD, EARS, EYES, NOSE, AND THROAT: Unremarkable. LUNGS: Clear to auscultation. CARDIAC: Regular rate and rhythm without murmur or gallop. ABDOMEN: Soft and nontender. EXTREMITIES: Unremarkable. Prolapsed hemorrhoids, not reducible. He has a polypoid mass. The patient and nurses report minimal bleeding. ASSESSMENT AND PLAN: 1. Prolapsed hemorrhoids. We would recommend followup in my office in 2 to 3 weeks and make arrangements for a colonoscopy and hemorrhoidectomy. He understands the risks and benefits of the procedure and consents, and I will see in the office in 2 to 3 weeks, when we will make arrangements for this as an outpatient after the pandemic lessens. 2. End-stage renal disease. 3. Hypertension. 4. Hemorrhage from polycystic kidneys with embolization of the right kidney by Dr. Daniels. Job ID: [id number]
--- NOTE | 2019-07-18 11:27 | PRG ---
DATE OF SERVICE: 07/18/2019 SUBJECTIVE: Patient was seen and examined at bedside and overnight events noted. Patient denies any shortness of breath or chest pain or palpitation. No history of nausea or vomiting or diarrhea or fever or chills or cramps. OBJECTIVE: GENERAL: This is a well-built male, in no apparent distress. VITAL SIGNS: Temperature 98.2. Heart Rate 85. Respiratory rate 18. Blood pressure 191/92. HEENT: Atraumatic, normocephalic. Oral mucosa is moist. NECK: Supple. CARDIOVASCULAR: S1, S2 heard. Rate and rhythm regular. RESPIRATORY: Clear to auscultation. GASTROINTESTINAL: Abdomen is soft. MUSCULOSKELETAL: No tenderness. No edema. DERMATOLOGIC: No skin rash. NEUROLOGIC: Alert and awake and oriented x3. No focal neurologic deficits. Moving all the extremities. PSYCHIATRIC: Mood and affect normal. LABORATORY DATA: Not done today. ASSESSMENT AND PLAN: 1. End-stage renal disease. Continue on dialysis as tolerated. 2. History of hypertension. 3. Edema. 4. Anemia, better. We will follow. Job ID: [id number]
[2019-07-18] MEDS ORDERED: Lisinopril 10 MG TAB PO SCH (14:30)
--- NOTE | 2019-07-18 18:37 | PDOC.HOSPP ---
- Subjective Encounter Date: 07/18/19 Encounter Time: 09:00 Subjective: no overnight events. This morning feeling well and more energetic. has no complaints and endorses being able to ambulated to bathroom without lightheadedness or dizziness. - Objective Vital Signs & Weight: Vital Signs (12 hours) Temp Pulse Resp BP BP Pulse Ox 07/18/19 18:14 177/90 H 07/18/19 18:12 177/90 H 07/18/19 16:20 99.7 F H 90 18 184/92 H 94 L 07/18/19 15:04 87 187/90 H 07/18/19 15:03 187/90 H 07/18/19 14:49 98.5 F 87 18 187/90 H 95 07/18/19 11:00 98.2 F 76 18 184/84 H 92 L 07/18/19 09:20 180/83 H 07/18/19 08:25 85 191/92 H 07/18/19 08:00 98.2 F 85 18 191/92 H 92 L Weight Admit Weight 140 lb Weight 129 lb 3.054 oz Most Recent Monitor Data Heart Rate from ECG 76 NIBP 147/83 NIBP BP-Mean 104 Respiration from ECG 25 SpO2 99 I&O: 07/17/19 07/18/19 07/19/19 06:59 06:59 06:59 Intake Total 1411 1025 500 Output Total 400 Balance 1011 1025 500 Result Diagrams: 07/18/19 09:06 07/17/19 03:41 Additional Labs: Accuchecks 07/18/19 07/17/19 05:55 20:06 POC Glucose 91 114 H Hospitalist ROS - Review of Systems Constitutional: denies: fever, chills, sweats, weakness, malaise, other Respiratory: denies: cough, dry, shortness of breath, hemoptysis, SOB with excertion, pleuritic pain, sputum, wheezing, other Cardiovascular: denies: chest pain, palpitations, orthopnea, paroxysmal noc. dyspnea, edema, light headedness, other Gastrointestinal: denies: nausea, vomiting, abdominal pain, diarrhea, constipation, melena, hematochezia, other - Medication Medications: Active Medications Generic Name Dose Route Start Last Admin Trade Name Freq PRN Reason Stop Dose Admin Acetaminophen 650 mg 07/15/19 20:51 07/17/19 20:59 Tylenol PO 650 mg Q4H PRN Administration Headache/Fever/Mild Pain (1-3) Hydrocodone Bitart/Acetaminophen 1 tab 07/15/19 20:51 07/18/19 00:34 [place] 5/325 PO 1 tab Q4H PRN Administration Moderate Pain (4-6) Carvedilol 25 mg 07/16/19 08:00 07/18/19 17:47 Coreg PO 25 mg BID-WM SHARAD Administration Dextrose/Water 25 gm 07/15/19 20:51 07/15/19 21:40 Dextrose 50% SLOW IVP 25 gm PRN PRN Administration Hypoglycemia Docusate Sodium 100 mg 07/18/19 09:00 07/18/19 08:26 Colace PO 100 mg BID SHARAD Administration Hydralazine HCl 25 mg 07/15/19 21:00 07/18/19 15:04 Apresoline PO 25 mg TID SHARAD Administration Piperacillin Sod/Tazobactam 100 mls @ 200 mls/hr 07/16/19 06:00 07/18/19 15: 04 Sod 2.25 gm/ Sodium Chloride IVPB 100 mls Q8HR SHARAD Administration Ondansetron HCl 4 mg 07/16/19 01:18 07/16/19 01:58 Zofran Odt PO 4 mg Q6H PRN Administration Nausea/Vomiting Ondansetron HCl 4 mg 07/16/19 01:18 07/16/19 10:29 Zofran IVP 4 mg Q6H PRN Administration Nausea/Vomiting Sodium Chloride 10 ml 07/15/19 20:51 07/17/19 21:04 Flush - Normal Saline IVF 10 ml PRN PRN Administration Saline Flush - Exam General Appearance: NAD, awake alert Neck: no JVD Heart: RRR, no murmur, no gallops, no rubs Respiratory: CTAB, no wheezes, no rales, no ronchi Gastrointestinal: soft, non-tender, non-distended, normal bowel sounds Extremities: no edema Psychiatric: normal affect, normal behavior, A&O x 3 Hosp A/P - Plan right renal ruptures cyst - s/p coil placement; sheaths removed (07/15); Anemia - HgB stable Troponinemia - likely result of demand ischemia due to anemia; patient has no complains consistent with ACS; not candidate for anticoagulation regardless ESRD - HD as per nephrology, pending 07/17 HTN urgency- will reasses after HD; started lisinopril Leukocytosis - downtrending; on zosyn HFrEF - last echo 2016, EF 40-45%; per cardiology note nonischemic cardiomyopathy; CXR 07/14 showing cadiomegaly, pulmonary congestion; Currently on coreg, restarted lisinopril Immunity to Hepatitis B - consistent with labs DC home with home health pending better control of BP, likely 07/18
[2019-07-18] MEDS: Acetaminophen 325 MG TAB PO PRN (19:53)
[2019-07-18] MEDS ORDERED: hydrALAZINE 20 MG/ML VIAL SLOW IVP SCH (23:00)
[2019-07-19 06:00] LABS: #Eosinphils 0.2 thou/uL (0.0-0.7); #Lymphocytes 1.2 thou/uL (1.20-3.40); #Monocytes 1.8 thou/uL (0.11-0.59); #Neutrophils 15.9 thou/uL (1.40-6.50); %Basophils 0.1 % (0.0-1.0); %Eosinophils 0.9 % (0.0-10.0); %Lymphocytes 6.5 % (21.0-51.0); %Monocytes 9.3 % (0.0-10.0); %Neutrophils 83.2 % (42.0-75.0); Hemoglobin 9.1 g/dL (14.0-18.0); Mean Corpuscular HGB CONC 33.5 g/dL (32.0-36.0); Mean Corpuscular Volume 89.6 fL (78.0-98.0); Mean Platelet Volume 8.1 fL (7.4-10.4); Platelet Count 152 thou/uL (130-400); RBC Distribution Width 13.7 % (11.5-14.5); Red Blood Cell (RBC) Count 3.03 mill/uL (4.70-6.10); White Blood Cell (WBC) Count 19.1 thou/uL (4.8-10.8)
[2019-07-19 06:23] LABS: Anion Gap 16 mmol/L (10-20); BUN (Urea Nitrogen) 36 mg/dL (8.9-20.6); Calc. Creatinine Clearance 13 mL/min (70-130); Calcium 8.6 mg/dL (7.8-10.44); Carbon Dioxide 27 mmol/L (22-29); Chloride 98 mmol/L (98-107); Estimated GFR-MDRD 12; Glucose 87 mg/dL (70-105); Potassium 3.6 mmol/L (3.5-5.1); Sodium 137 mmol/L (136-145)
[2019-07-19] MEDS ORDERED: hydrALAZINE 20 MG/ML VIAL SLOW IVP SCH (06:30)
[2019-07-19] MEDS: Carvedilol 25 MG TAB PO SCH ×2 (08:21→17:08)
[2019-07-19] MEDS: hydrALAZINE 25 MG TAB PO SCH ×3 (08:21→19:58)
[2019-07-19] MEDS: Docusate 100 MG CAP PO SCH ×3 (08:22→19:59)
[2019-07-19] MEDS ORDERED: Amlodipine 5 mg/Benazepril 10 mg CAP PO SCH (09:00)
[2019-07-19] MEDS ORDERED: Lisinopril 20 MG TAB PO SCH (09:00)
[2019-07-19] MEDS ORDERED: Isosorbide Mononitrate (ER) 30 MG TAB PO SCH (09:00)
[2019-07-19] MEDS ORDERED: Amlodipine 5 MG TAB PO SCH (09:00)
[2019-07-19] MEDS ORDERED: Lisinopril 10 MG TAB PO SCH (09:00)
--- NOTE | 2019-07-19 09:12 | PRG ---
DATE OF SERVICE: 07/19/2019 SUBJECTIVE: Patient was seen and examined at bedside and overnight events noted. Patient denies any shortness of breath or chest pain or palpitation. No history of nausea or vomiting or diarrhea or fever or chills or cramps. OBJECTIVE: GENERAL: This is a well-built male, in no acute distress. VITAL SIGNS: Temperature 99.4. Heart rate 85. Respiratory rate 18. Blood pressure 197/101. HEENT: Atraumatic, normocephalic. Oral mucosa is moist NECK: Supple. CARDIOVASCULAR: S1, S2 heard. Rate and rhythm regular. RESPIRATORY: Clear to auscultation. GASTROINTESTINAL: Abdomen is soft. MUSCULOSKELETAL: No tenderness. No edema. DERMATOLOGIC: No skin rash. NEUROLOGIC: Alert and awake and oriented X3. No focal neurologic deficits. Moving all the extremities. PSYCHIATRIC: Mood and affect normal. LABORATORY DATA: Potassium 3.6, BUN is 36, and creatinine 6.04. ASSESSMENT AND PLAN: 1. End-stage renal disease. Continue dialysis Thursday, Thursday, and Thursday. 2. History of hypertension. 3. Edema. 4. Anemia, monitor. 5. Continue dialysis as tolerated. Job ID: [id number]
[2019-07-19] MEDS: HYDROcodone/Acetaminophen 5/325 mg Tablet PO PRN (13:18)
[2019-07-19] MEDS: Labetalol HCl 100 MG/20 ML VIAL SLOW IVP SCH ×2 (13:20→18:36)
--- NOTE | 2019-07-19 21:58 | PDOC.HOSPP ---
- Subjective Encounter Date: 07/19/19 Encounter Time: 09:00 Subjective: no overnight events. Remains in hypertensive urgency. Has no complaints. - Objective Vital Signs & Weight: Vital Signs (12 hours) Temp Pulse Resp BP BP BP Pulse Ox 07/19/19 19:35 98.3 F 65 20 188/89 H 94 L 07/19/19 18:36 78 173/88 H 07/19/19 18:30 173/88 H 07/19/19 16:43 98.5 F 78 18 193/94 H 97 07/19/19 14:59 181/95 H 07/19/19 14:56 79 181/95 H 07/19/19 13:52 94 L 07/19/19 13:20 74 206/106 H 07/19/19 12:24 206/106 H 07/19/19 11:05 98.7 F 74 18 192/101 H 94 L Weight Admit Weight 140 lb Weight 129 lb 3.054 oz Most Recent Monitor Data Heart Rate from ECG 76 NIBP 147/83 NIBP BP-Mean 104 Respiration from ECG 25 SpO2 99 I&O: 07/18/19 07/19/19 07/20/19 06:59 06:59 06:59 Intake Total 1025 1800 900 Balance 1025 1800 900 Result Diagrams: 07/19/19 05:25 07/19/19 05:25 Hospitalist ROS - Review of Systems Constitutional: denies: fever, chills, sweats, weakness, malaise, other Respiratory: denies: cough, dry, shortness of breath, hemoptysis, SOB with excertion, pleuritic pain, sputum, wheezing, other Cardiovascular: denies: chest pain, palpitations, orthopnea, paroxysmal noc. dyspnea, edema, light headedness, other Gastrointestinal: denies: nausea, vomiting, abdominal pain, diarrhea, constipation, melena, hematochezia, other - Medication Medications: Active Medications Generic Name Dose Route Start Last Admin Trade Name Freq PRN Reason Stop Dose Admin Acetaminophen 650 mg 07/15/19 20:51 07/18/19 19:53 Tylenol PO 650 mg Q4H PRN Administration Headache/Fever/Mild Pain (1-3) Hydrocodone Bitart/Acetaminophen 1 tab 07/15/19 20:51 07/19/19 13:18 [place] 5/325 PO 1 tab Q4H PRN Administration Moderate Pain (4-6) Carvedilol 25 mg 07/16/19 08:00 07/19/19 17:08 Coreg PO 25 mg BID-WM SHARAD Administration Dextrose/Water 25 gm 07/15/19 20:51 07/15/19 21:40 Dextrose 50% SLOW IVP 25 gm PRN PRN Administration Hypoglycemia Docusate Sodium 100 mg 07/18/19 09:00 07/19/19 19:59 Colace PO Not Given BID SHARAD Hydralazine HCl 25 mg 07/15/19 21:00 07/19/19 19:58 Apresoline PO 25 mg TID SHARAD Administration Labetalol HCl 10 mg 07/19/19 13:00 07/19/19 18:36 Normodyne SLOW IVP 10 mg Q6H SHARAD Administration Lisinopril 20 mg 07/19/19 09:00 07/19/19 08:31 Zestril PO 20 mg DAILY SHARAD Administration Ondansetron HCl 4 mg 07/16/19 01:18 07/16/19 01:58 Zofran Odt PO 4 mg Q6H PRN Administration Nausea/Vomiting Ondansetron HCl 4 mg 07/16/19 01:18 07/16/19 10:29 Zofran IVP 4 mg Q6H PRN Administration Nausea/Vomiting Sodium Chloride 10 ml 07/15/19 20:51 07/17/19 21:04 Flush - Normal Saline IVF 10 ml PRN PRN Administration Saline Flush - Exam General Appearance: NAD, awake alert Heart: RRR, no murmur, no gallops, no rubs Gastrointestinal: soft, non-tender, non-distended, normal bowel sounds Extremities: no edema Hosp A/P - Plan HTN urgency- persists. increase amlodipine to 10mg po qd; changed lisinopril to nondializable losartan; start labetolol and titrate down as oral antihypertensives reach steady state right renal ruptures cyst - s/p coil placement; sheaths removed (07/15); Anemia - HgB stable Troponinemia - likely result of demand ischemia due to anemia; patient has no complains consistent with ACS; not candidate for anticoagulation regardless ESRD - HD as per nephrology, Leukocytosis - downtrending; on zosyn HFrEF - last echo 2016, EF 40-45%; per cardiology note nonischemic cardiomyopathy; CXR 07/14 showing cadiomegaly, pulmonary congestion; Currently on coreg, restarted lisinopril Immunity to Hepatitis B - consistent with labs Has no insurance. appears to have some degree of cognitive impairment. Has multiple significant morbidities and unable to care for self. DC home pending better control of BP considering will have close follow up during dialysis sessions. Nephrology can monitor BP during dialysis until patient acquires PCP, then can also apply for home health aid.
[2019-07-20] MEDS: Labetalol HCl 100 MG/20 ML VIAL SLOW IVP SCH ×3 (00:10→14:22)
[2019-07-20] MEDS: Carvedilol 25 MG TAB PO SCH (08:18)
[2019-07-20] MEDS: hydrALAZINE 25 MG TAB PO SCH ×2 (08:18→14:22)
[2019-07-20] MEDS: Docusate 100 MG CAP PO SCH (08:18)
[2019-07-20] MEDS: Acetaminophen 325 MG TAB PO PRN ×2 (08:20→14:30)
[2019-07-20] MEDS ORDERED: Losartan 25 MG TAB PO SCH (09:00)
[2019-07-20] MEDS ORDERED: Amlodipine 10 MG TAB PO SCH (09:00)
--- NOTE | 2019-07-20 11:15 | PRG ---
DATE OF SERVICE: 07/20/2019 SUBJECTIVE: Patient was seen and examined at bedside and overnight events noted. Patient denies any shortness of breath or chest pain or palpitation. No history of nausea or vomiting or diarrhea or fever or chills or cramps. OBJECTIVE: General: This is well-built male, in no acute distress. Vital Signs: Temperature 99.1. Heart Rate 82. Respiratory rate 18. Blood pressure 197/94. HEENT: Atraumatic, normocephalic. Oral mucosa is moist. Neck: Supple. Cardiovascular: S1, S2 heard. Rate and rhythm regular. Respiratory: Clear to auscultation. Gastrointestinal: Abdomen is soft. Musculoskeletal: No tenderness. No edema. Dermatologic: No skin rash. Neurologic: Alert and awake and oriented x3. No focal neurologic deficits. Moving all the extremities. Psychiatric: Mood and affect normal. LABORATORY DATA: Potassium 3.6, BUN is 36, and creatinine 6.04. ASSESSMENT AND PLAN: 1. End-stage renal disease, continue dialysis. 2. Hypertension. 3. Anemia. 4. Edema, controlled. Plan to continue dialysis as tolerated. Job ID: [id number]
--- NOTE | 2019-07-20 12:04 | PQF ---
CHRISTY LINDER ALVARADO GUTIERREZJHONYRonnell, PAGE [id number] CLINICAL DOCUMENTATION IMPROVEMENT CLARIFICATION FORM: ICD-10 Updated PLEASE DO AN ADDENDUM TO THE PROGRESS NOTE WITH ANY DOCUMENTATION UPDATES OR ADDITIONS AND CARRY THROUGH TO DC SUMMARY. THANK YOU. DATE: 07/20/2019 ATTN:DR. Lorena FRANCO Please exercise your independent, professional judgment in responding to the clarification form. Clinical indicators are provided on the bottom of this form for your review. Please check appropriate box(s): [ ] Acute blood loss anemia [ x] Chronic Anemia: [ x ] Blood loss [ ] Hemolytic [ ] Simple [ ] Due to Vitamin B12 Deficiency [ ] Other [ ] Anemia of Chronic Disease (please specify) [ ] Anemia due to (please choose): [ ] Due to Chemotherapy [ ] Due to Radiotherapy [ ] Due to Immunotherapy [ ] Other diagnosis [ ] Unable to determine In addition, please specify: Present on Admission (POA): [x ] Yes [ ] No [ ] Unable to determine For continuity of documentation, please document condition throughout progress notes and discharge summary. Thank You. CLINICAL INDICATORS - SIGNS / SYMPTOMS / LABS / RESULTS AND LOCATION IN EMR 07/14 HGB 3.2 > 7.5 07/15 HGB 8.5 07/16 HGB 6.4 > 9.6 07/17 HGB 8.8 > 9.4 07/18 HGB 9.1 07/14 ED REPORT: PT PRESENTS WITH SOB, WEAKNESS AND RLQ PAIN, RESP 32, P 103// ED PHYSICIAN FINAL DX: RUPTURED RENAL CYST, ACUTE SEVERE ANEMIA, ELEVATED TROPONIN, HYPOGLYCEMIA , PULMONARY EDEMA, INTRA-ABDOMINAL BLEEDING 07/15 PN ( SARABIA) A/P: 2.) ACUTE ANEMIA 07/16 PN (SHAMESH) A/P: LEUKOCYTOSIS - INTRAABDOMINAL INFECTION DUE TO RUPTURED CYST OR/AND STRESS, BONE MARROW STIMULATION IN CONTEXT OF SEVERE BLOOD LOSS RISK: DX RUPTURED RENAL CYST, RIGHT RENAL HEMORRHAGE ( OP JORGE/ AMOR) 07/14 TREATMENTS: TRANSFUSION 6 UNITS RBC ( 07/14, 07/16) SERIAL H & H ( 07/14 - 07/18) ABDOMINAL AORTOGRAM, RENAL ARTERY COILING ( 07/14) THANK YOU! EARL (This form is maintained as a part of the permanent medical record) 2014 [employer], [employer]. All Rights Reserved [email or web address]
--- NOTE | 2019-07-20 12:20 | PQF ---
CHRISTY LINDER ALVARADO GUTIERREZJHONYRonnell, PAGE [id number] [id number]- [id number] CLINICAL DOCUMENTATION IMPROVEMENT CLARIFICATION FORM: ICD-10 Updated PLEASE DO AN ADDENDUM TO THE PROGRESS NOTE WITH ANY DOCUMENTATION UPDATES OR ADDITIONS AND CARRY THROUGH TO DC SUMMARY. THANK YOU. DATE: 07/19/2019 ATTN: DR. Lorena FRANCO Please exercise your independent, professional judgment in responding to the clarification form. Clinical indicators are provided on the bottom of this form for your review. Please check appropriate box(es): [ ] Sepsis present on admission [ ] Sepsis NOT present on admission [ ] Unable to determine [ ] Due to: Ruptered Renal Cyst [ ] Not Due to: Ruptered Renal Cyst [ ] Severe sepsis present on admission [ ] Severe Sepsis NOT present on admission [ ] Unable to determine with acute organ dysfunction of: ____ [ ] Septic Shock present on Admission [ ] Septic Shock NOT present on Admission [ ] Unable to determine [ ] Localized infection without sepsis [ x ] Other diagnosis no infection [ ] Unable to determine For continuity of documentation, please document condition throughout progress notes and discharge summary. Thank You. CLINICAL INDICATORS - SIGNS / SYMPTOMS / LABS / RESULTS AND LOCATION IN MR 07/14 WBC 30.0 > 24.0 07/15 WBC 28.9 07/16 WBC 21.3 07/18 WBC 19.1 07/14 BANDS 22 > 19 > 15 07/14 LACTIC ACID 13.9 > 5.8 07/17 TEMP, 100.5 07/14 ED REPORT: PT PRESENTS WITH SOB, WEAKNESS AND RLQ PAIN, RESP 32, P 103// ED PHYSICIAN FINAL DX: RUPTURED RENAL CYST, ACUTE SEVERE ANEMIA, ELEVATED TROPONIN, HYPOGLYCEMIA , PULMONARY EDEMA, INTRA-ABDOMINAL BLEEDING 07/16 PN (POWERS) ASSESSMENT: RENAL FAILURE, LEUKOCYTOSIS, POSSIBLY SEPSIS, 07/16 PN (SHAMESH) A/P: LEUKOCYTOSIS - INTRAABDOMINAL INFECTION DUE TO RUPTURED CYST OR/AND STRESS RISK: DX RUPTURED RENAL CYST, RIGHT RENAL HEMORRHAGE ( OP NOTE/ AMOR) 07/14 TREATMENTS: ZOSYN IV (07/15-07/17) SERIAL LABS ( 07/14- 07/18) BLOOD CULTURES (07/14) THANK YOU! EARL (This form is maintained as a part of the permanent medical record) 2014 [employer]. All Rights Reserved SELIN [email or web address]
[2019-07-20 15:10] VITALS: TEMP 99.2
[2019-07-20] MEDS ORDERED: hydrALAZINE 25 MG TAB PO SCH (15:15)
[2019-07-20 15:52] VITALS: BP 174/90
== END 2019-07-20 16:58 | disposition home or self-care (01) | DRG 674 ==
LOC: ERS 17:33 → SDC/OP 19:26 → CCU 20:13 → T4-B 07-17 12:20
PROVIDERS: ADMIT Thoracic Surgery (Cardiothoracic Vascular Surgery); ATTEND Internal Medicine
PROC: 04L Lower Arteries, Occlusion (ICD-10-PCS; principal; 2019-07-15)
PROC: B4001ZZ Plain Radiography of Abdominal Aorta using Low Osmolar Contrast (ICD-10-PCS; 2019-07-15)
PROC: 5A1D70Z Performance of Urinary Filtration, Intermittent, Less than 6 Hours Per Day (ICD-10-PCS; 2019-07-18)
PROC: 30233L1 Transfusion of Nonautologous Fresh Plasma into Peripheral Vein, Percutaneous Approach (ICD-10-PCS; 2019-07-18)
PROC: 30233N1 Transfusion of Nonautologous Red Blood Cells into Peripheral Vein, Percutaneous Approach (ICD-10-PCS; 2019-07-18)
DX: N28.89 Other specified disorders of kidney and ureter (principal); I13.2 Hypertensive heart and chronic kidney disease with heart failure and with stage 5 chronic kidney disease, or end stage renal disease; E87.2 Acidosis; I24.8 Other forms of acute ischemic heart disease; I50.22 Chronic systolic (congestive) heart failure; N18.6 End stage renal disease; F20.9 Schizophrenia, unspecified; F31.9 Bipolar disorder, unspecified; F41.9 Anxiety disorder, unspecified; N28.1 Cyst of kidney, acquired; D63.1 Anemia in chronic kidney disease; E78.5 Hyperlipidemia, unspecified; F17.210 Nicotine dependence, cigarettes, uncomplicated; D72.9 Disorder of white blood cells, unspecified; I25.5 Ischemic cardiomyopathy; I16.0 Hypertensive urgency; K64.9 Unspecified hemorrhoids; Z99.2 Dependence on renal dialysis; Z91.19 Patient's noncompliance with other medical treatment and regimen
CPT/HCPCS: 36245; 36415; 36416; 36430; 37244; 71045; 74177; 76942; 80048; 80053; 82553; 82805; 83605; 83735; 83880; 84100; 84145; 84484; 85007; 85014; 85018; 85025; 85027; 85060; 85610; 85730; 86704; 86706; 86803; 86850; 86900; 86901; 87040; 87070; 87205; 87340; 90935; 93005; 96365; 96375; C1769; G0257; J0360; J1644; J2405; J2543; J3490; P9016; P9048; Q0162; Q9967

== ENCOUNTER 2019-11-14 14:44 | Outpatient (CLI) | payer OTHER ==
--- NOTE | 2019-11-14 15:34 | RAD ---
2 VIEW CHEST: Date: 11/14/2019 HISTORY: Rule out TB. COMPARISON: 07/15/2019. FINDINGS: There is a left pleural effusion similar in size to the prior portable exam of 07/15/2019. Associated left basilar atelectasis and/or infiltrate. Right lung appears clear. Heart size upper normal size. Osseous structures unremarkable. IMPRESSION: Persistent left effusion and left basilar atelectasis and/or consolidation. POS: [facility]
== END 2019-11-14 14:45 | disposition home or self-care (01) ==
LOC: RAD 14:44
PROVIDERS: ATTEND Internal Medicine Nephrology
DX: Z11.1 Encounter for screening for respiratory tuberculosis (principal); J98.11 Atelectasis; J90 Pleural effusion, not elsewhere classified
CPT/HCPCS: 71046

== ENCOUNTER 2020-03-11 11:25 | Inpatient (IN) | payer OTHER ==
[~2020-03-11 11:25] MED LIST changes: +Calcium Chloride 1 GM/10 ML Abboject SYRINGE ONE; -Iopamidol 370 76% 100 ML VIAL ONE; -Iopamidol 370 76% 50 ML VIAL FS ONE; +Sodium Bicarb 50 MEQ/50 ML Abboject 8.4% SYRINGE ONE
[2020-03-11 11:45] LABS: #Basophils 0.1 thou/uL (0.0-0.2); #Eosinphils 0.3 thou/uL (0.0-0.7); #Lymphocytes 2.1 thou/uL (1.20-3.40); #Monocytes 0.5 thou/uL (0.11-0.59); #Neutrophils 8.5 thou/uL (1.40-6.50); %Basophils 1.1 % (0.0-1.0); %Eosinophils 2.9 % (0.0-10.0); %Lymphocytes 17.9 % (21.0-51.0); %Monocytes 4.3 % (0.0-10.0); %Neutrophils 73.8 % (42.0-75.0); Hemoglobin 10.2 g/dL (14.0-18.0); Mean Corpuscular HGB CONC 30.7 g/dL (32.0-36.0); Mean Corpuscular Hemoglobin 27.7 pg (27.0-31.0); Mean Corpuscular Volume 90.2 fL (78.0-98.0); Mean Platelet Volume 8.9 fL (7.4-10.4); Platelet Count 261 thou/uL (130-400); RBC Distribution Width 18.5 % (11.5-14.5); White Blood Cell (WBC) Count 11.5 thou/uL (4.8-10.8)
[2020-03-11] MEDS ORDERED: Propofol 1,000 MG/100 ML VIAL IV ONE (11:46)
[2020-03-11] MEDS ORDERED: Fentanyl 100 MCG/2 ML VIAL ONE ×2 (11:46→12:12)
[2020-03-11] MEDS ORDERED: Lorazepam 2 MG/ML VIAL ONE (12:03)
--- NOTE | 2020-03-11 12:06 | RAD ---
PORTABLE CHEST: HISTORY: Code. Shortness of breath. COMPARISON: 02/25/2020 exam. FINDINGS: Heart size is enlarged. Pulmonary vessels are engorged. Increased perihilar lung markings most cons istent with a pulmonary edema-type change. Endotracheal and NG tubes are in satisfactory position. IMPRESSION: 1. Cardiomegaly with moderate congestive heart failure changes. Left-sided effusion. 2. Endotracheal and nasogastric tubes in satisfactory position. POS: [facility]
[2020-03-11 12:07] LABS: ALT (SGPT) 23 U/L (8-55); AST (SGOT) 31 U/L (5-34); Albumin 3.6 g/dL (3.5-5.0); Alkaline Phosphatase 123 U/L (40-110); Anion Gap 26 mmol/L (10-20); BUN (Urea Nitrogen) 60 mg/dL (8.9-20.6); Bilirubin, Total 0.3 mg/dL (0.2-1.2); Calc. Creatinine Clearance 0 mL/min (70-130); Calcium 8.5 mg/dL (7.8-10.44); Carbon Dioxide 15 mmol/L (22-29); Chloride 105 mmol/L (98-107); Globulin 3.3 g/dL (2.4-3.5); Glucose 152 mg/dL (70-105); Potassium 4.7 mmol/L (3.5-5.1); Protein, Total 6.9 g/dL (6.0-8.3); Sodium 141 mmol/L (136-145)
--- NOTE | 2020-03-11 12:13 | RAD ---
PORTABLE CHEST: HISTORY: Central line placement. COMPARISON: Earlier exam done today. FINDINGS: The left-sided central line has now been placed. Catheter tip overlies the superior vena cava. No s igns of pneumothorax on the supine film. IMPRESSION: Placement of a left-sided central line. No signs of pneumothorax. POS: [facility]
[2020-03-11 12:22] LABS: Actual Bicarbonate (HCO3a) 19.9 mEq/L (22-28); Analyzer IN Cardio ER; Base Excess (BEa) -7.5 mEq/L (-2.0 to +3.0); CO2 Tension 49.5 mmHg (35.0-45.0); Calcium, Ionized (arterial) 1.34 mmol/L (1.12-1.30); Carboxyhemoglobin (COHb) 1.2 gm% (0.0-3.0); Hemoglobin (Hb) 9.8 g/dL (14.0-18.0); O2 Tension (PaO2), arterial 385.6 mmHg (80.0-100.0); Potassium - ABG Lab 4.44 mmol/L (3.70-5.30)
[2020-03-11] MEDS ORDERED: fentaNYL Citrate/PF 2,000 MCG in Sodium Chloride 0.9% 60 ML IV SCH ×2 (12:30→14:15)
[2020-03-11 12:31] LABS: Puncture Site RRA; pH, Arterial 7.22 (7.35-7.45)
[2020-03-11 12:32] LABS: ALV-art Gradient 265.525 mmHg (0-20)
[2020-03-11 12:36] LABS: SARS-CoV-2 NAA Rapid Test Not Detected (NotDetected)
[2020-03-11 12:38] LABS: CKMB 2.2 ng/mL (0-6.6)
[2020-03-11 12:39] LABS: Phosphorus 5.7 mg/dL (2.3-4.7)
--- NOTE | 2020-03-11 13:24 | PDOC.FPRHP ---
- History of Present Illness Chief Complaint: SOB History of Present Illness: Patient is a 44 year old Male with PMHx of COPD, ESRD on dialysis M/W/F, and HTN who was brought in by EMS after his mother called 911 after finding him very short of breath in bed this morning. Per the mother the patient was able to say no when she told him she was going to call 911. Per the ED, EMS found the patient down in his home with agonal respirations, went into bradycardic arrest with ROSC within 5 minutes. They placed an LMA and on arrival to the ED patient was hypotensive, hypoxic, received 2 amps bicarb and 1gm calcium chloride and was intubated with propofol and fentanyl and a central line was placed. He was started on a levophed drip, but shortly after becoming hypertensive, the levophed was stopped. Patient had intermittent myoclonic jerks on arrival that became more frequent. He was given 2mg ativan. Dr. Olguin (nephro) and Dr. Russell (pulm) were both consulted from the ED. Of note, patient was recently discharged from where he was hospitalized 02/24- 02/25 for PNA where he was discharged on levaquin and refills of his inhalers, albuterol and ipratropium. Per mother, patient has been coughing x 3 weeks. He skipped his dialysis on Thursday. ED Course: 2 amps bicarb, 1gm calcium chloride, 2mg ativan, 200mcg fentanyl, started on fentanyl and propofol gtt, started on levophed drip - Allergies/Adverse Reactions Allergies Allergy/AdvReac Type Severity Reaction Status Date / Time No Known Drug Allergies Allergy Verified 08/25/17 09:34 - Home Medications Medication Instructions Recorded Confirmed Type Isosorbide Mononitrate [Imdur ER] 30 mg PO DAILY #30 tab 03/31/16 02/25/20 Rx Aspirin [Ecotrin Low Strength] 81 mg PO DAILY #60 tab 07/20/19 02/25/20 Rx Carvedilol [Coreg] 25 mg PO BID-WM #60 tab 07/20/19 02/25/20 Rx hydrALAZINE HCl 100 mg PO TID #90 tablet 07/20/19 02/25/20 Rx Aspirin [Ecotrin Low Strength] 81 mg PO DAILY 02/25/20 02/25/20 History Folic Acid/Vit B Complex and C 1 tablet PO DAILY 02/25/20 02/25/20 History [Dialyvite] Albuterol Sulfate [Proair 90 mcg IH Q6HR PRN #1 aer.pw.bas 02/26/20 Rx Digihaler] Epoetin [Procrit] 10,000 units SC Q7D vial 02/26/20 Rx Ipratropium [Atrovent HFA] 2 puff INH QID #1 inh 02/26/20 Rx Levofloxacin [Levaquin] 500 mg PO Q48H #4 tab 02/26/20 Rx NIFEdipine [Procardia XL] 60 mg PO DAILY tab 02/26/20 Rx - History PMHx: COPD, HTN, ESRD (M/W/F HD) PSHx: 1-2 months ago, rupture on kidneys; FHx: DM, CAD Social: smokes marijuana, no alcohol or other drug use, - Review of Systems ROS unobtainable: due to endotracheal tube Respiratory: reports: cough (x3 weeks per mother) - Vital signs BP: 190/104, MAP: 132, Pulse: 70, Temp: 95.7 (Criticore Temp), O2 sat: 95 on (Ventilator), End-Tidal CO2: 35; 40% FiO2, peep 5, SIMV RR 24 - Physical Exam Constitutional: other (middle aged man, intubated) HEENT: other (fixed, pinpoint pupils, sclera inecteric, oropharynx intubated) Neck: supple, no JVD Heart: normal S1/S2, other (3/6 holosystolic murmur) Lungs: CTAB Abdomen: soft, non-tender -Musculoskeletal: L forearm AV shunt with palpable thrill FMR H&P: Results - Labs Result Diagrams: 03/12/20 03:30 03/12/20 03:30 Lab results: WBC 11.5 thou/uL (4.8-10.8) H 03/11/20 11:33 Hgb 10.2 g/dL (14.0-18.0) L 03/11/20 11:33 Hct 33.3 % (42.0-52.0) L 03/11/20 11:33 MCV 90.2 fL (78.0-98.0) 03/11/20 11:33 Plt Count 261 thou/uL (130-400) 03/11/20 11:33 Neutrophils % 73.8 % (42.0-75.0) 03/11/20 11:33 ABG pH 7.22 (7.35-7.45) L* 03/11/20 12:20 ABG pCO2 49.5 mmHg (35.0-45.0) H 03/11/20 12:20 ABG pO2 385.6 mmHg (80.0-100.0) H 03/11/20 12:20 Sodium 141 mmol/L (136-145) 03/11/20 11:33 Potassium 4.7 mmol/L (3.5-5.1) 03/11/20 11:33 Chloride 105 mmol/L (98-107) 03/11/20 11:33 Carbon Dioxide 15 mmol/L (22-29) L 03/11/20 11:33 BUN 60 mg/dL (8.9-20.6) H 03/11/20 11:33 Creatinine 13.03 mg/dL (0.7-1.3) H 03/11/20 11:33 Glucose 152 mg/dL (70-105) H 03/11/20 11:33 Lactic Acid 10.2 mmol/L (0.5-2.2) H* 03/11/20 11:33 Calcium 8.5 mg/dL (7.8-10.44) 03/11/20 11:33 Total Bilirubin 0.3 mg/dL (0.2-1.2) 03/11/20 11:33 AST 31 U/L (5-34) 03/11/20 11:33 ALT 23 U/L (8-55) 03/11/20 11:33 Alkaline Phosphatase 123 U/L (40-110) H 03/11/20 11:33 CK-MB (CK-2) 2.2 ng/mL (0-6.6) 03/11/20 11:33 Serum Total Protein 6.9 g/dL (6.0-8.3) 03/11/20 11:33 Albumin 3.6 g/dL (3.5-5.0) 03/11/20 11:33 - EKG Interpretation EKG: SR 81 with T wave inversions in V5-6 - Radiology Interpretation CT scan - head Status: report reviewed by me (negative) Chest x-ray Status: report reviewed by me (Cardiomegaly & volume overload; no focal consolidation) FMR H&P: A/P - Plan 1) Acute hypoxic respiratory failure 2/2 volume overload from HD non-compliance Patient skipped dialysis on Thursday, last went 03/07 CXR notable for volume overload Echo 02/25 EF 55-60% severe concentric LVH, mod-severe aortic regurgitation Low suspicion for infectious etiology at this point, WBC 11.5 - procal ordered Supervisor [employer] Dr. Olguin, consulted from ED, appreciate recs - patient to be dialyzed today Compressor Operator Adjuster Dr. Russell consulted by ED as patient is requiring mechanical ventilation for respiratory support - recommended Neuro consult, EEG - continue to monitor respiratory status - strict I/Os 2) Cardiac arrest s/p ROSC 2/2 above -Patient requiring mechanical ventilation for respiratory support, no pressor support necessary at this time -Given clear evidence anoxic brain injury, will not proceed with cooling protocol -Continuous cardiac monitoring 3) Suspected anoxic brain injury 2/2 #1 & 2 CT Brain - no acute findings -Patient has had intermittent myoclonic jerking since arrival to ED and fixed pupils w/ no gag reflex or response to pain -Neurology, Dr Perales consulted, appreciate recs, suspects anoxia - could get EEG but would likely show a deep burst pattern c/w anoxic injury & nothing to do for this - EEG ordered per Dr. Russell recs - Routine neurochecks, seizure precautons - PRN ativan - Consider MRI of no improvement over the next few days 4) Lactic Acidosis LA 10.5 on arrival --> 3.2, likely 2/2 hypoxia - UDS and UA ordered - continue to trend, likely improve with HD today 5) Indeterminant Troponin, likely 2/2 Type II NSTEMI due #1 & 2 EKG SR with T wave inversions in V5-6, no ST elevation - will continue to trend - continue cardiac monitoring 6) ESRD on M/W/F HD -BUN/Cr 60/13 on admission - Nephrology, Dr. Olguin, consulted from the ED - patient to be dialyzed today -Will continue to monitor renal fxn - will monitor electrolytes - renally dose medications prn 7) HTN -Resume home meds as tolerated 9) COPD -Not in acute exacerbation - SHARAD chapman per pulm PCP: CC- None ABx: None IVFs: KVO VTE PPX: Heparin TID GI PPX: Protonix IV Code status: FULL CODE Dispo: Admit to CCU for continued supportive care. Prognosis very poor. FMR H&P: Upper Level - Pertinent history PCP: CC- No PCP HPI: [id number] with a PMH notable for ESRD on MWF HD, COPD & HTN presenting to the ED after reportedly being in respiratory distress at home. Of note, history was obtained from the patients mother and the admitting ER physician as the patient was intubated & sedated at the time of exam. Per the reported history, the patient has been coughing on and off for the last 2-3 weeks. Was recently admitted to the [facility] & discharged on PO abx & inhalers for tx of PNA. Mother reports persistent coughing since. Patient reportedly went into his bedroom earlier today and was having difficulty breathing so his mother ended up calling EMS. On arrival the patient was reportedly having agonal breathing and became bradycardic & eventually pulseless. CPR was started and the patient was resuscitated & an LMA was placed after ~5 minutes. On arrival to the ER the patient was satting in the 70s so he was intubated. He was also reportedly hypotensive and was started on a levophed drip but then became hypertensive so this was stopped. He was then continued on fentanyl & propofol drips for se dation & BP control. Of note, per the ER physician the patient was last dialyzed on Thursday of last week. ED course: 1g IVP CaCl, 2 amps bicarb, levophed gtt, 200mcg fentanyl, fentanyl & propofol gtt, 2mg IV Ativan See Fish Receiver note for details of PMH. - Pertinent findings Labs/Imaging: WBC 11.5 Lactate 10 pH 7.22/PCO2 49.5/pO2 385.6/bicarb 19 BUN/Cr 60/13/03 eGFR 5 procal 0.32 CXR: Cardiomegaly & volume overload; no focal consolication Flu & COVID negative Head CT: negative EKG: Sinus rhythm w/ T wave inversion in V5 & V6, no ST elevation REVIEW OF SYSTEMS: Unable to obtain 2/2 being intubated & sedated Vitals: HR: 65 BP: 193/107 O2 sat 97% on SIMV mode w/ TV 500/RR 24/Ps 10/PEEP 5/ 40% FiO2 Temp 95.7F PHYSICAL EXAMINATION: General: sedated on the ventilator with intermittent myoclonic jerking HEENT: normocephalic atraumatic Neck: Supple. Full ROM. L IJ in place Heart/Cardiovascular System: RRR, 3/6 holosystolic murmur Lungs/Respiratory System: CTAB Abdomen/Gastro-Intestinal System: soft w/ no abdominal tenderness, normal bowel sounds Extremities: Warm extremities. No edema noted. Neuro: sedated w/ no response to painful stimuli & intermittent myoclonic jerking noted; pupils fixed & pinpoint, no gag reflex noted Psychiatry: sedated Skin: No lesions, rashes, or ulcers noted. - Plan Date/Time: 03/11/20 1324 IKiki, have evaluated this patient and agree with findings/plan as outlined by gallery intern resident. Pertinent changes/additions are listed here. A/P: #Acute hypoxic respiratory failure 2/2 volume overload from HD non-compliance -CXR notable for volume overload & patient reportedly w/o HD since 03/07/20. -Nephrology to dialyze today. Continue ventilator support #Cardiac arrest s/p ROSC 2/2 #1: -Patient not requiring pressor support but is requiring mechanical ventilation for respiratory support. Continue continuous cardiac monitoring in the unit. -Given already clear evidence of anoxic brain injury will not proceed cooling protocol. #Suspected anoxic brain injury 2/2 #1 & 2: -Patient has had intermittent myoclonic jerking since arrival to ED and fixed pupils w/ no gag reflex or response to pain. -Neurology, Dr Perales consulted, & reported anoxia most likely & could get EEG but would likely show a deep bust pattern c/w anoxic injury & nothing to do for this. -Will continue routine neurochecks & obtain an EEG. Sz precautions. PRN Ativan. Consider MRI if no improvement over next few days. #lactic acidosis -~10 on arrival but has since downtrended to 3.2. Likely 2/2 hypoxia. Will continue to trend & likely to improve with HD today. #indeterminant troponin: -Likely type II AR 2/2 #1 & 2. Will continue to trend. #ESRD on MWF HD -BUN/Cr 60/13 on admission. Nephrology, Dr. Olguin, consulted from the ED. Patient to be dialyzed today. -Will continue to monitor renal fxn & lytes & renally dose meds PRN. #HTN -Resume home meds as tolerated #COPD -Not in acute exacerbation. SHARAD duonebs per pulm PCP: CC- None ABx: None IVFs: KVO VTE PPX: Heparin TID GI PPX: Protonix IV Code status: FULL CODE Dispo: Admit to CCU for continued supportive care. Prognosis very poor. Addendum - Attending - Attending Attestation Date/Time: 03/12/20 0727 Late entry note for03/11. Patient seen at 345pm. I personally evaluated the patient and discussed the management with Dr. Li/Fidencio and H&P repeated by me. I agree with the History, Examination, Assessment and Plan documented above with any addition or exceptions noted. Acute cardiac arrest of unknown etiology ESRD- missed dialysis Lactic acidosis Myoclonic jerks - Poor prognosis. Will be getting dialysis, EEG and ventilatory support. Dr. Li communicated with patient's daughter and mother.
--- NOTE | 2020-03-11 13:30 | CT ---
CT Brain WO Con History: Unresponsive Comparison: None. Findings: No acute hemorrhage or infarct. Extensive chronic microvascular ischemic changes. No midlin e shift or mass effect. Calvarium is intact. Paranasal sinuses and mastoids are relatively clear. Impression: No acute intracranial abnormality.
[2020-03-11] MEDS ORDERED: Ventilator Sedation Protocol FS ONE (14:00)
[2020-03-11] MEDS ORDERED: Acetaminophen 650 MG Suppository PR PRN (14:05)
[2020-03-11] MEDS ORDERED: Ondansetron PF 4 MG/2 ML Vial IVP PRN (14:05)
[2020-03-11] MEDS ORDERED: DISCONTINUE PREVIOUS NARCOTIC PAIN MEDICATIONS AND BENZODIAZEPINES FS SCH (14:15)
[2020-03-11] MEDS ORDERED: Fentanyl BOLUS 250 ML IVPB PRN (14:15)
[2020-03-11] MEDS ORDERED: Morphine 2 MG/ML VIAL SLOW IVP PRN (14:15)
[2020-03-11] MEDS ORDERED: Propofol BOLUS 1,000 MG/100 ML VIAL IV PRN (14:15)
--- NOTE | 2020-03-11 14:24 | CON ---
DATE OF CONSULTATION: 03/11/2020 TIME SPENT: 45 minutes of critical care time. REASON FOR CONSULTATION: Respiratory failure associated with cardiopulmonary arrest. HISTORY OF PRESENT ILLNESS: This patient is a 44-year-old black male, who has end-stage renal disease, requiring hemodialysis. Paramedics were called to the patient's residence by family today after he was found down. They were told that the patient missed his last scheduled dialysis on Thursday because "he did not want to go." It is unclear how long this patient was down before Paramedics arrived. They started CPR on the scene and had return of spontaneous circulation within about 5 minutes. The issue now is that the patient is intubated and has developed myoclonic jerking. PAST MEDICAL HISTORY: Per previous records in the chart, 1. End-stage renal disease, requiring hemodialysis. 2. Chronic systolic congestive heart failure. 3. Hypertension. 4. Polycystic kidney disease. 5. Normocytic anemia. 6. Hyperlipidemia. 7. Medication noncompliance. PAST SURGICAL HISTORY: He has had vascular access in the left arm. ALLERGIES: NONE. MEDICATIONS: Not known at the time of this dictation. SOCIAL HISTORY: Apparently, does not smoke. Does not consume alcohol. Does not use illicit drugs. REVIEW OF SYSTEMS: Cannot be obtained because the patient is currently on mechanical ventilation. PHYSICAL EXAMINATION: VITAL SIGNS: His temperature is 95.7, blood pressure 189/104, pulse 62, O2 saturation 100%, end-tidal CO2 is 32. GENERAL: The patient is a middle-aged male, who is intubated. NEUROLOGIC: He has no withdrawal to pain. No gag reflex. He has sudden myoclonic jerking movements, where he opens his eyes and shake his entire body. HEENT: His pupils are 2 mm, not reactive. Sclerae anicteric. Oropharynx intubated. NECK: No adenopathy or JVD. CARDIAC: S1 and S2 regular with a 3/6 holosystolic murmur. LUNGS: Clear to auscultation. ABDOMEN: Soft and nontender to palpation. No hepatosplenomegaly. EXTREMITIES: He has a left forearm AV shunt with palpable thrill. LABORATORY DATA: Sodium 141, potassium 4.7, chloride 105, CO2 of 15, BUN 60, creatinine 13, and glucose 152. Lactate 10.2. Troponin 0.12. Albumin 3.6. PH of 7.22, pCO2 49, pO2 of 385, that is on SIMV rate 24, tidal volume 500, PEEP 5, pressure support 10, and FiO2 of 100%. White blood cell count 11.5, hematocrit 33.3, and platelet count 261. His COVID serology was negative. Chest x-ray demonstrates pulmonary edema in a bat-wing distribution. Brain CT was interpreted as no acute abnormality. ASSESSMENT: 1. Status post cardiac arrest - etiology unclear, although cardiac seems likely given how well his oxygenation is on mechanical ventilation. 2. End-stage renal disease, requiring hemodialysis. 3. Medical noncompliance. PLAN: 1. Supportive care, on mechanical ventilation. 2. We would recommend Neurology consultation with EEG. 3. Family education in regard to likely poor outcome. 4. Nephrology consultation for dialysis. Job ID: [id number]
[2020-03-11] MEDS ORDERED: Pantoprazole 40 MG VIAL IVP SCH (14:30)
[2020-03-11 14:42] LABS: Lactic Acid 3.2 mmol/L (0.5-2.2)
[2020-03-11 14:51] LABS: Troponin I 0.203 ng/mL (< 0.028)
[2020-03-11] MEDS: Lorazepam 2 MG/ML VIAL SLOW IVP PRN ×4 (14:51→23:03)
[2020-03-11] MEDS: Heparin 5,000 UNITS/ML VIAL SC SCH ×2 (15:24→20:12)
[2020-03-11] MEDS ORDERED: hydrALAZINE 20 MG/ML VIAL SLOW IVP PRN (15:33)
[2020-03-11 15:41] LABS: Troponin I 0.263 ng/mL (< 0.028)
--- NOTE | 2020-03-11 17:15 | PDOC.CONS ---
- Consultation Encounter Date: 03/11/20 Encounter Time: 17:14 Reason for consult: ESRD History of present illness: Patient is a 44-year-old male with past history ESRD on hemodialysis, COPD, hypertension who was brought to the hospital by EMS for evaluation of cardiac arrest and respiratory failure. Patient is intubated, information obtained from the chart. Patient's mother apparently called EMS as patient was short of breath. EMS arrived and patient to be having agonal respiration, later on patient became bradycardic and had cardiac arrest. Patient regained pulse after 5 minutes of CPR. He was intubated, central line placed and started on Levophed patient was brought to the EMS. Patient's blood pressure stabilized in route due to which Levophed was discontinued. Patient gets hemodialysis on Thursday, Thursday and Thursday. Patient openly missed dialysis on Thursday Review of systems Gen.: No fever, no chills All the 14 systems reviewed except for the ones mentioned above are negative Past med history: ESRD on hemodialysis, hypertension, COPD Past surgical history: ?Rupture of kidneys Social history: Patient occasionally smokes marijuana. Does not abuse drugs or alcohol Family history: Positive for diabetes mellitus and coronary artery disease Physical examination Vital Signs (24 hours) Temp Pulse Resp BP Pulse Ox 03/11/20 20:11 106 H 190/113 H 03/11/20 19:30 94 43 H 93 L 03/11/20 19:25 90 152/108 H 03/11/20 18:00 98.7 F 24 H 03/11/20 16:00 98.4 F 24 H 03/11/20 15:00 98 F 03/11/20 14:33 20 92 L 03/11/20 14:00 63 177/105 H Intake & Output - 24 hours 03/11/20 03/12/20 06:59 06:59 Intake Total 53.8 Output Total 0 Balance 53.8 Weight 2.173 oz Intake: Intake, IV Amount 53.8 Propofol 1000 mg (See 53.8 Protocol) IV INF PRN Rx#: [id number] Output: Output, Craig 0 Other: # Bowel Movements 0 Constitutional: comfortable, not in pain HEENT: Mucous membranes moist, no icterus Neck: Trachea midline, no lymphadenopathy Heart: Regular rate and rhythm; no murmurs Lungs: Air entry equal bilateral; no wheezes Abdomen: Soft; nontender; no guarding/tenderness/rebound Extremities: No calf tenderness; no ulcers, no bruises Neurological: Patient is awake, following commands Skin: No rash, no ulcers Psychological: Not agitated Labs and Imaging reviewed Laboratory Results - last 24 hr 03/11/20 03/11/20 03/11/20 11:30 11:33 11:33 WBC 11.5 H RBC 3.70 L Hgb 10.2 L Hct 33.3 L MCV 90.2 MCH 27.7 MCHC 30.7 L RDW 18.5 H Plt Count 261 MPV 8.9 Neutrophils % 73.8 Lymphocytes % 17.9 L Monocytes % 4.3 Eosinophils % 2.9 Basophils % 1.1 H Neutrophils # 8.5 H Lymphocytes # 2.1 Monocytes # 0.5 Eosinophils # 0.3 Basophils # 0.1 Specimen Type Puncture Site Bicarbonate Actual ABG pH ABG pCO2 ABG pO2 ABG O2 Sat (Measured) ABG O2 Content ABG Base Excess ABG Hematocrit ABG Hemoglobin ABG Oxyhemoglobin ABG Carboxyhemoglobin ABG Methemoglobin ABG Deoxyhemoglobin Theodore Test A-a O2 Gradient Ionized Calcium Mode of Support Mechanical Rate Inspired O2 Tidal Volume Pressure Support PEEP or CPAP Sodium 141 Potassium 4.7 Chloride 105 Carbon Dioxide 15 L Anion Gap 26 H BUN 60 H Creatinine 13.03 H Estimated GFR (MDRD) 5 Glucose 152 H Lactic Acid Calcium 8.5 Phosphorus Magnesium Total Bilirubin 0.3 AST 31 ALT 23 Alkaline Phosphatase 123 H CK-MB (CK-2) Troponin I Serum Total Protein 6.9 Albumin 3.6 Globulin 3.3 Albumin/Globulin Ratio 1.1 L Procalcitonin Influenza A RNA INAAT Not Detected Influenza B RNA INAAT Not Detected SARS-CoV-2 Rap RNA(RT-PCR) Not Detected 03/11/20 03/11/20 03/11/20 11:33 11:33 11:33 WBC RBC Hgb Hct MCV MCH MCHC RDW Plt Count MPV Neutrophils % Lymphocytes % Monocytes % Eosinophils % Basophils % Neutrophils # Lymphocytes # Monocytes # Eosinophils # Basophils # Specimen Type Puncture Site Bicarbonate Actual ABG pH ABG pCO2 ABG pO2 ABG O2 Sat (Measured) ABG O2 Content ABG Base Excess ABG Hematocrit ABG Hemoglobin ABG Oxyhemoglobin ABG Carboxyhemoglobin ABG Methemoglobin ABG Deoxyhemoglobin Theodore Test A-a O2 Gradient Ionized Calcium Mode of Support Mechanical Rate Inspired O2 Tidal Volume Pressure Support PEEP or CPAP Sodium Potassium Chloride Carbon Dioxide Anion Gap BUN Creatinine Estimated GFR (MDRD) Glucose Lactic Acid 10.2 H* Calcium Phosphorus Magnesium 2.7 H Total Bilirubin AST ALT Alkaline Phosphatase CK-MB (CK-2) 2.2 Troponin I 0.120 H Serum Total Protein Albumin Globulin Albumin/Globulin Ratio Procalcitonin Influenza A RNA INAAT Influenza B RNA INAAT SARS-CoV-2 Rap RNA(RT-PCR) 03/11/20 03/11/20 03/11/20 11:33 11:33 12:20 WBC RBC Hgb Hct MCV MCH MCHC RDW Plt Count MPV Neutrophils % Lymphocytes % Monocytes % Eosinophils % Basophils % Neutrophils # Lymphocytes # Monocytes # Eosinophils # Basophils # Specimen Type ARTERIAL Puncture Site RRA Bicarbonate Actual 19.9 L ABG pH 7.22 L* ABG pCO2 49.5 H ABG pO2 385.6 H ABG O2 Sat (Measured) 99.6 H ABG O2 Content 14.5 L ABG Base Excess -7.5 L ABG Hematocrit 29.0 L ABG Hemoglobin 9.8 L ABG Oxyhemoglobin 97.5 ABG Carboxyhemoglobin 1.2 ABG Methemoglobin 0.90 ABG Deoxyhemoglobin 0.4 Theodore Test NOT DONE A-a O2 Gradient 265.525 H Ionized Calcium 1.34 H Mode of Support SIMV/PS Mechanical Rate 24 Inspired O2 100 Tidal Volume 500 Pressure Support 10 PEEP or CPAP 5.0 Sodium 140 Potassium 4.44 Chloride 102 Carbon Dioxide Anion Gap BUN Creatinine Estimated GFR (MDRD) Glucose Lactic Acid Calcium Phosphorus 5.7 H Magnesium Total Bilirubin AST ALT Alkaline Phosphatase CK-MB (CK-2) Troponin I Serum Total Protein Albumin Globulin Albumin/Globulin Ratio Procalcitonin 0.32 Influenza A RNA INAAT Influenza B RNA INAAT SARS-CoV-2 Rap RNA(RT-PCR) 03/11/20 03/11/20 03/11/20 14:16 14:16 15:01 WBC RBC Hgb Hct MCV MCH MCHC RDW Plt Count MPV Neutrophils % Lymphocytes % Monocytes % Eosinophils % Basophils % Neutrophils # Lymphocytes # Monocytes # Eosinophils # Basophils # Specimen Type Puncture Site Bicarbonate Actual ABG pH ABG pCO2 ABG pO2 ABG O2 Sat (Measured) ABG O2 Content ABG Base Excess ABG Hematocrit ABG Hemoglobin ABG Oxyhemoglobin ABG Carboxyhemoglobin ABG Methemoglobin ABG Deoxyhemoglobin Theodore Test A-a O2 Gradient Ionized Calcium Mode of Support Mechanical Rate Inspired O2 Tidal Volume Pressure Support PEEP or CPAP Sodium Potassium Chloride Carbon Dioxide Anion Gap BUN Creatinine Estimated GFR (MDRD) Glucose Lactic Acid 3.2 H Calcium Phosphorus Magnesium Total Bilirubin AST ALT Alkaline Phosphatase CK-MB (CK-2) Troponin I 0.203 H 0.263 H Serum Total Protein Albumin Globulin Albumin/Globulin Ratio Procalcitonin Influenza A RNA INAAT Influenza B RNA INAAT SARS-CoV-2 Rap RNA(RT-PCR) 03/11/20 03/11/20 18:00 18:00 WBC RBC Hgb Hct MCV MCH MCHC RDW Plt Count MPV Neutrophils % Lymphocytes % Monocytes % Eosinophils % Basophils % Neutrophils # Lymphocytes # Monocytes # Eosinophils # Basophils # Specimen Type Puncture Site Bicarbonate Actual ABG pH ABG pCO2 ABG pO2 ABG O2 Sat (Measured) ABG O2 Content ABG Base Excess ABG Hematocrit ABG Hemoglobin ABG Oxyhemoglobin ABG Carboxyhemoglobin ABG Methemoglobin ABG Deoxyhemoglobin Theodore Test A-a O2 Gradient Ionized Calcium Mode of Support Mechanical Rate Inspired O2 Tidal Volume Pressure Support PEEP or CPAP Sodium Potassium Chloride Carbon Dioxide Anion Gap BUN Creatinine Estimated GFR (MDRD) Glucose Lactic Acid 1.1 Calcium Phosphorus Magnesium Total Bilirubin AST ALT Alkaline Phosphatase CK-MB (CK-2) Troponin I 0.463 H* Serum Total Protein Albumin Globulin Albumin/Globulin Ratio Procalcitonin Influenza A RNA INAAT Influenza B RNA INAAT SARS-CoV-2 Rap RNA(RT-PCR) Active Medications Generic Name Dose Route Start Last Admin Trade Name Freq PRN Reason Stop Dose Admin Acetaminophen 650 mg 03/11/20 14:05 Acetaminophen 650 Mg Suppository MI Q4H PRN Headache/Fever/Mild Pain (1-3) Albuterol/Ipratropium 3 ml 03/11/20 14:30 03/11/20 19:30 Ipratropium/Albuterol Sulfate 3 Ml Neb NEB 3 ml [id number] SHARAD Administration Aspirin 81 mg 03/12/20 09:00 Aspirin 81 Mg Enteric Coated Tablet PER TUBE DAILY SHARAD Heparin Sodium (Porcine) 5,000 units 03/11/20 15:00 03/11/20 20:12 Heparin 5,000 Units/Ml Vial SC 5,000 units TID SHARAD Administration Hydralazine HCl 5 mg 03/11/20 15:33 Hydralazine 20 Mg/Ml Vial SLOW IVP Q4H PRN SBP Greater Than 180 Hydralazine HCl 100 mg 03/11/20 21:00 03/11/20 20:11 Hydralazine 25 Mg Tab PER TUBE 100 mg TID SHARAD Administration Fentanyl Citrate 2,000 mcg/ 100 mls @ 0 mls/hr 03/11/20 14:15 Sodium Chloride IV 04/10/20 14:15 INF SHARAD Protocol Per Protocol Fentanyl Citrate 250 mls @ 0 mls/hr 03/11/20 14:15 Fentanyl Bolus IVPB 04/10/20 14:15 PRN PRN Breakthrough pain/agitation As Directed Influenza Virus Vaccine Quadrival 60 mcg 03/12/20 09:00 Flu Vacc [id number](6mos Up)/Pf 60 Mcg/0.5 Ml Syringe IM 03/12/20 09:01 .ONCE ONE Lorazepam 2 mg 03/11/20 14:15 03/11/20 20:12 Lorazepam 2 Mg/Ml Vial SLOW IVP 04/10/20 14:15 2 mg Q1H PRN Administration Breakthrough agitation Morphine Sulfate 2 mg 03/11/20 14:15 Morphine 2 Mg/Ml Vial SLOW IVP 04/10/20 14:15 Q1H PRN Breakthrough Pain/Agitation Discontinue Previous 1 each 03/11/20 14:15 Narcotic Pain FS 04/10/20 14:15 Medications And .ONE [facility] Benzodiazepines Ondansetron HCl 4 mg 03/11/20 14:05 Ondansetron Pf 4 Mg/2 Ml Vial IVP Q6H PRN Nausea/Vomiting Pantoprazole Sodium 40 mg 03/12/20 09:00 Pantoprazole 40 Mg Vial IVP DAILY [facility] Pneumococcal 13-Valent Conj Vacc 0.5 ml 03/12/20 09:00 Prevnar 13-Carrie Conj/Pf 0.5 Ml Syringe IM 03/12/20 09:01 .ONCE ONE Propofol 1,000 mg 03/11/20 14:15 03/11/20 17:48 Propofol 1,000 Mg/100 Ml Vial IV 04/10/20 14:15 1,000 mg INF PRN Administration TO ACHIEVE GOAL RASS Protocol Propofol 20 mg 03/11/20 14:15 Propofol Bolus 1,000 Mg/100 Ml Vial IV 04/10/20 14:15 Q5MIN PRN BREAKTHROUGH AGITATION Vitamin B Complex/Vit C/Folic Acid 1 tab 03/12/20 09:00 Folic Acid/Vit B Comp W-C PER TUBE DAILY SHARAD Assessment and plan CKD stage on hemodialysis Thursday, Thursday and Thursday Hypertension Anemia Cardiac arrest Patient apparently missed hemodialysis on Thursday as per the chart. We will dialyze patient today, target ultrafiltration 2 to 2.5 L as tolerated. Monitor blood pressure, patient is currently not on Levophed. Transfuse PRBC as needed with target hemoglobin greater than 8. Dose medications for ESRD. Discussed with RN Thank you for allowing me to participate in the management of this pt
[2020-03-11] MEDS: Propofol 1,000 MG/100 ML VIAL IV PRN ×2 (17:48→23:03)
[2020-03-11 18:40] LABS: Lactic Acid 1.1 mmol/L (0.5-2.2)
[2020-03-11 18:54] LABS: Troponin I 0.463 ng/mL (< 0.028)
[2020-03-11] MEDS: hydrALAZINE 25 MG TAB PER TUBE SCH (20:11)
[2020-03-11] MEDS: Acetaminophen 650 MG/20.3 ML UDCUP PER TUBE PRN (23:56)
[2020-03-12] MEDS: Lorazepam 2 MG/ML VIAL SLOW IVP PRN ×3 (01:02→11:55)
[2020-03-12 01:46] LABS: Troponin I 0.826 ng/mL (< 0.028)
[2020-03-12] MEDS: Propofol 1,000 MG/100 ML VIAL IV PRN ×3 (04:27→18:04)
[2020-03-12] MEDS: Acetaminophen 650 MG/20.3 ML UDCUP PER TUBE PRN ×2 (04:35→11:18)
[2020-03-12 04:46] LABS: ALT (SGPT) 34 U/L (8-55); AST (SGOT) 50 U/L (5-34); Albumin 3.4 g/dL (3.5-5.0); Alkaline Phosphatase 114 U/L (40-110); Anion Gap 20 mmol/L (10-20); BUN (Urea Nitrogen) 31 mg/dL (8.9-20.6); Bilirubin, Total 0.5 mg/dL (0.2-1.2); Calc. Creatinine Clearance 0 mL/min (70-130); Calcium 8.6 mg/dL (7.8-10.44); Carbon Dioxide 27 mmol/L (22-29); Chloride 103 mmol/L (98-107); Glucose 71 mg/dL (70-105); Potassium 3.6 mmol/L (3.5-5.1); Protein, Total 6.4 g/dL (6.0-8.3); Sodium 146 mmol/L (136-145)
[2020-03-12 05:25] LABS: Band 5 % (5-11); Hemoglobin 8.2 g/dL (14.0-18.0); Lymphocytes 5 % (21-51); MDiff Complete? YES; Mean Corpuscular HGB CONC 32.6 g/dL (32.0-36.0); Mean Corpuscular Hemoglobin 27.6 pg (27.0-31.0); Mean Corpuscular Volume 84.9 fL (78.0-98.0); Mean Platelet Volume 9.1 fL (7.4-10.4); Monocytes 5 % (0-10); Neutrophil 85 % (42-75); Platelet Count 208 thou/uL (130-400); RBC Distribution Width 18.1 % (11.5-14.5); Red Blood Cell (RBC) Count 2.95 mill/uL (4.70-6.10); White Blood Cell (WBC) Count 19.5 thou/uL (4.8-10.8)
--- NOTE | 2020-03-12 07:39 | PDOC.FM ---
- Subjective Subjective: Fevered overnight. Continued myoclonic jerks while on propofol gtt and prn ativan. - Objective MAR Reviewed: Yes Vital Signs & Weight: Vital Signs (12 hours) Temp Pulse Resp BP Pulse Ox 03/12/20 06:00 100.4 F H 27 H 03/12/20 04:35 101.1 F H 92 24 H 174/96 H 03/12/20 04:00 101.1 F H 24 H 03/12/20 02:28 89 24 H 163/99 H 97 03/12/20 02:00 101.3 F H 25 H 03/12/20 01:00 101.4 F H 03/12/20 00:00 100.8 F H 24 H 03/11/20 23:56 100.8 F H 100 34 H 166/83 H 03/11/20 22:14 99 169/112 H 03/11/20 22:13 96 39 H 100 03/11/20 22:00 34 H 03/11/20 20:11 106 H 190/113 H 03/11/20 20:00 99.7 F H 44 H 94 L Weight Weight 61 kg Most Recent Monitor Data Heart Rate from ECG 92 NIBP 161/101 NIBP BP-Mean 121 Respiration from ECG 28 SpO2 98 I&O: 03/11/20 03/12/20 03/13/20 06:59 06:59 06:59 Intake Total 292.8 Output Total 600 Balance -307.2 Result Diagrams: 03/12/20 03:30 03/12/20 03:30 Phys Exam - Physical Examination Sedated, Myoclonic jerks ETT and NG in place Neck: supple Course Breath sounds bilaterally Cardiovascular: RRR 3/6 systolic ejection murmur Gastrointestinal: soft, no distention, positive bowel sounds Musculoskeletal: no edema L AV fistula myoclonic jerks Dx/Plan (1) Anoxic brain injury Status: Acute (2) ESRD on dialysis Code(s): N18.6 - END STAGE RENAL DISEASE; Z99.2 - DEPENDENCE ON RENAL DIALYSIS Status: Acute (3) Acute respiratory failure with hypoxia Code(s): J96.01 - ACUTE RESPIRATORY FAILURE WITH HYPOXIA Status: Acute - Plan Plan: 44yo M with h/o ESRD on HD, COPD, HTN who presented s/p ROSC, acute hypoxic respiratory failure 2/2 missed HD and volume overload, and anoxic brain injury #Acute hypoxic respiratory failure 2/2 volume overload from HD non-compliance - ESRD on HD (MWF) - missed HD prior to presentation - CXR with volume overload - Intubated (03/11) - Echo 02/25 with EF 55-60%, severe concentrive LVH, mod-severe aortic regurg - Nephrology, consulted, recommended HD - Pulm, Dr Russell, consulted, recommended neuro consult with EEG, supportive care, poor prognosis #Cardiac arrest s/p ROSC 2/2 above - Patient requiring mechanical ventilation for respiratory support, no pressor support necessary at this time - Given clear evidence anoxic brain injury, will not proceed with cooling protocol - Continuous cardiac monitoring #Anoxic brain injury 2/2 Cardiac arrest - CT Brain - no acute findings - Continued myoclonic jerks while on propofol with prn ativan - Fixed pupils w/ no gag reflex or response to pain at presentation - Neurology, Dr Perales consulted, appreciate recs, suspects anoxia. Could obtain EEG but would likely show a deep burst pattern c/w anoxic injury & nothing to do for this - Routine neurochecks, seizure precautons #Lactic Acidosis, resolved - LA 10.5 on arrival --> 3.2, likely 2/2 hypoxia #Type II NSTEMI 2/2 Cardiac Arrest - EKG SR with T wave inversions in V5-6, no ST elevation - Trop 0.263, 0.463, 0.826 - Consider cards consult, plan to meet with family this AM to determine goals of care prior #ESRD on M/W/F HD - BUN/Cr 60/13 on admission - Nephrology, Dr. Olguin, consulted from the ED - Rec HD - Monitor lytes #HTN - BP up to 173/135, restart home BP meds and monitor with prns #COPD - Not in acute exacerbation - SHARAD tonibs per pulm PCP: CC- None ABx: None IVFs: KVO VTE PPX: Heparin TID GI PPX: Protonix IV Code status: FULL CODE: Palliative care consulted and family meeting today for goals of care and code status Lines: Left IJ (03/11) Dispo: Admitted to CCU for continued supportive care. Anoxic brain injury. Prognosis very poor.
--- NOTE | 2020-03-12 08:05 | RAD ---
Portable frontal chest radiograph: 03/12/2020 COMPARISON: 03/11/2020 HISTORY: Pneumonia FINDINGS: Stable endotracheal tube, nasogastric tube, and left-sided vascular catheter. There is nons pecific airspace disease within the right lung base with developing consolidation, worsened. There is dense consolidative change within the left lung base with obscuration of the left hemidiaphragm an d blunting of the costophrenic angle with probable associated left pleural effusion. Density within the left base is similar when compared to prior imaging. Aeration within the right upper lobe has imp roved. IMPRESSION: Lines and tubes as detailed above. Dense opacity persists within the lung bases, left gre ater than right, suggesting a combination of nonspecific airspace disease and pleural fluid.
[2020-03-12 08:08] LABS: Actual Bicarbonate (HCO3a) 24.1 mEq/L (22-28); Base Excess (BEa) 1.1 mEq/L (-2.0 to +3.0); CO2 Tension 31.8 mmHg (35.0-45.0); Calcium, Ionized (arterial) 1.06 mmol/L (1.12-1.30); Carboxyhemoglobin (COHb) 1.4 gm% (0.0-3.0); Hemoglobin (Hb) 9.3 g/dL (14.0-18.0); O2 Tension (PaO2), arterial 73.2 mmHg (80.0-100.0)
[2020-03-12 08:10] LABS: Puncture Site RRA
[2020-03-12] MEDS: Folic Acid/Vit B Comp W-C PER TUBE SCH (08:55)
[2020-03-12] MEDS: hydrALAZINE 25 MG TAB PER TUBE SCH ×3 (08:56→21:16)
[2020-03-12] MEDS: Scopolamine 1.5 mg/72 hour Patch TD SCH (08:56)
[2020-03-12] MEDS: Heparin 5,000 UNITS/ML VIAL SC SCH ×3 (08:56→21:16)
[2020-03-12] MEDS: Aspirin 81 mg Enteric Coated Tablet PER TUBE SCH (08:57)
[2020-03-12] MEDS: NIFEdipine XL 60 MG TAB PO SCH (08:57)
[2020-03-12] MEDS: Pantoprazole 40 MG VIAL IVP SCH (08:58)
[2020-03-12] MEDS ORDERED: FLU VACC QS2020-21(6MOS UP)/PF 60 MCG/0.5 ML SYRINGE IM ONE (09:00)
[2020-03-12] MEDS ORDERED: Prevnar 13-Val Conj/PF 0.5 ML SYRINGE IM ONE (09:00)
--- NOTE | 2020-03-12 09:21 | PRG ---
DATE OF SERVICE: 03/12/2020 CRITICAL CARE TIME: 35 minutes. SUBJECTIVE: The patient remains intubated on mechanical ventilation. He is having almost persistent myoclonic jerking activity. OBJECTIVE: VITAL SIGNS: Temperature 100.2 with a T-max of 101.3, pulse 85, blood pressure 157/107. He is currently on propofol. HEENT: Has no corneal or blink reflex. Has no gag. NECK: No JVD. LUNGS: Coarse breath sounds. CARDIAC: S1 and S2. Regular. ABDOMEN: Soft and nontender. EXTREMITIES: No edema. He has no withdrawal to pain. LABORATORY DATA: White blood cell count 19.5, hematocrit 25.1, and platelet count 208. PH of 7.5, pCO2 of 31, pO2 of 73 on SIMV rate 24, tidal volume 500, PEEP 5, pressure support 10, FiO2 40%. Sodium 146, potassium 3.6, chloride 103, CO2 of 27, BUN 31, creatinine 7.8, glucose 71. Chest x-ray shows no change. ASSESSMENT: 1. Severe anoxic brain injury, status post cardiopulmonary arrest. 2. End-stage renal disease, requiring hemodialysis. 3. Medical noncompliance. PLAN: We were unlikely see neurologic improvement, so I think the case is more or less hopeless. I have add a scopolamine patch for secretions. I will lower the respiratory rate on mechanical ventilation. Await Neurology input. Job ID: [id number]
[2020-03-12] MEDS ORDERED: Adenosine 6 MG/2 ML VIAL ONE ×2 (11:56→12:04)
[2020-03-12] MEDS: ADENOSINE 60 MG/20 ML VIAL IVP SCH ×2 (11:59→12:01)
[2020-03-12] MEDS ORDERED: Amiodarone 150 MG, Admixture Fee 1 EACH in Dextrose 5% in Water 100 ML IVPB SCH (12:00)
[2020-03-12] MEDS ORDERED: Adenosine 6 MG/2 ML VIAL IVP SCH (12:05)
[2020-03-12] MEDS: Amiodarone 450 MG, Admixture Fee 1 EACH in Dextrose 5% in Water 250 ML IVPB SCH (12:25)
[2020-03-12] MEDS ORDERED: Dextrose 50% Abboject 50 ML SYRINGE ONE (14:25)
--- NOTE | 2020-03-12 18:45 | EKG ---
Test Reason : STAT Blood Pressure : / mmHG Vent. Rate : 108 BPM Atrial Rate : 108 BPM P-R Int : 166 ms QRS Dur : 100 ms QT Int : 382 ms P-R-T Axes : 062 -18 067 degrees QTc Int : 511 ms Sinus tachycardia Possible Left atrial enlargement Incomplete right bundle branch block Left ventricular hypertrophy Abnormal ECG No previous ECGs available Confirmed by DR. Lilia TURNER MD (4) on 03/12/2020 6:45:19 PM Referred By: MATTHEW Confirmed By:DR. Lilia TURNER MD
--- NOTE | 2020-03-12 18:46 | EKG ---
Test Reason : STAT Blood Pressure : / mmHG Vent. Rate : 097 BPM Atrial Rate : 097 BPM P-R Int : 182 ms QRS Dur : 098 ms QT Int : 410 ms P-R-T Axes : 058 -13 081 degrees QTc Int : 520 ms Normal sinus rhythm Possible Left atrial enlargement RSR' or QR pattern in V1 suggests right ventricular conduction delay Left ventricular hypertrophy with repolarization abnormality Prolonged QT Abnormal ECG When compared with ECG of 11-MAR-2020 20:12, (Unconfirmed) No significant change was found Confirmed by JOHNNY BURR, . SLin (4) on 03/12/2020 6:46:04 PM Referred By: MATTHEW Confirmed By:DR. Lilia TURNER MD
--- NOTE | 2020-03-12 18:48 | EKG ---
Test Reason : Blood Pressure : / mmHG Vent. Rate : 146 BPM Atrial Rate : 146 BPM P-R Int : 112 ms QRS Dur : 090 ms QT Int : 292 ms P-R-T Axes : 054 -26 097 degrees QTc Int : 455 ms Sinus tachycardia Left atrial enlargement RSR' or QR pattern in V1 suggests right ventricular conduction delay Left ventricular hypertrophy with repolarization abnormality Abnormal ECG When compared with ECG of 12-MAR-2020 01:59, (Unconfirmed) Vent. rate has increased BY [address] now depressed in Inferior leads T wave inversion more evident in Lateral leads Confirmed by JOHNNY BURR, DR. Rodrigues (4) on 03/12/2020 6:48:26 PM Referred By: Mingo GALLAGHER Confirmed By:DR. Lilia TURNER MD
--- NOTE | 2020-03-12 20:20 | CON ---
DATE OF CONSULTATION: 03/12/2020 CONSULTING PHYSICIAN: Hospitalist Services. IMPRESSION: Anoxic brain injury with burst suppression pattern suggesting a very poor prognosis. PLAN: Continue supportive measures as long as the patient's family wishes. HISTORY OF PRESENT ILLNESS: Mr. Rahman is a 44-year-old black gentleman with a past history of COPD and end-stage renal disease, on dialysis. He was found unresponsive at home with bradyarrhythmia and nearly apneic resuscitation was undertaken. He was transferred to the hospital and intubated. He has also has a past history of hypertension. He has had some blood pressure instability since admission is well. He has had some continuous intermittent myoclonic jerks. He is currently on a propofol drip. He had an EEG done yesterday, which showed a burst suppression pattern. His lab work shows some anemia with a hemoglobin of 8 and hematocrit of 25, BUN is 31, creatinine 7.85. PAST MEDICAL HISTORY: Otherwise unremarkable. ALLERGIES: NONE. SOCIAL HISTORY: Unknown. FAMILY HISTORY: Unknown. REVIEW OF SYSTEMS: Not obtainable. PHYSICAL EXAMINATION: GENERAL: He is a thin, middle-aged man on ventilatory support. VITAL SIGNS: Pulse 88. Respirations are supported. HEENT: Pupils are fixed and eyes are conjugate. Cranium, normocephalic and atraumatic. NECK: Supple. No lymphadenopathy. ABDOMEN: Soft and without any masses. EXTREMITIES: No cyanosis or edema. SKIN: Clear. NEUROLOGIC: He is unresponsive to painful stimulation. He has no cough response. He had no truncal pain response. There is a low-grade myoclonus occurring sporadically during the exam. SUMMARY: A 44-year-old man who has had a cardiopulmonary arrest, which appears to cause significant anoxic brain injury. He does not quite meet clinical criteria for brain . I suspect that he will likely progress gradually toward this outcome. Job ID: [id number]
[2020-03-13] MEDS: Propofol 1,000 MG/100 ML VIAL IV PRN ×3 (03:09→18:51)
[2020-03-13 04:59] LABS: ALT (SGPT) 25 U/L (8-55); AST (SGOT) 53 U/L (5-34); Albumin 3.2 g/dL (3.5-5.0); Alkaline Phosphatase 117 U/L (40-110); Anion Gap 22 mmol/L (10-20); BUN (Urea Nitrogen) 52 mg/dL (8.9-20.6); Bilirubin, Total 0.7 mg/dL (0.2-1.2); Calc. Creatinine Clearance 8 mL/min (70-130); Calcium 8.4 mg/dL (7.8-10.44); Carbon Dioxide 26 mmol/L (22-29); Chloride 100 mmol/L (98-107); Globulin 3.2 g/dL (2.4-3.5); Glucose 99 mg/dL (70-105); Potassium 3.8 mmol/L (3.5-5.1); Protein, Total 6.4 g/dL (6.0-8.3); Sodium 144 mmol/L (136-145)
[2020-03-13 05:54] LABS: Band 12 % (5-11); Hemoglobin 8.3 g/dL (14.0-18.0); MDiff Complete? YES; Mean Corpuscular HGB CONC 31.9 g/dL (32.0-36.0); Mean Corpuscular Volume 84.8 fL (78.0-98.0); Mean Platelet Volume 9.5 fL (7.4-10.4); Monocytes 6 % (0-10); Neutrophil 82 % (42-75); Platelet Count 195 thou/uL (130-400); RBC Distribution Width 18.2 % (11.5-14.5); Red Blood Cell (RBC) Count 3.06 mill/uL (4.70-6.10); White Blood Cell (WBC) Count 23.9 thou/uL (4.8-10.8)
[2020-03-13 07:23] LABS: Actual Bicarbonate (HCO3a) 23.9 mEq/L (22-28); Base Excess (BEa) 1.6 mEq/L (-2.0 to +3.0); CO2 Tension 28.7 mmHg (35.0-45.0); Calcium, Ionized (arterial) 0.98 mmol/L (1.12-1.30); Carboxyhemoglobin (COHb) 1.5 gm% (0.0-3.0); Hemoglobin (Hb) 8.4 g/dL (14.0-18.0); O2 Tension (PaO2), arterial 107.3 mmHg (80.0-100.0); Potassium - ABG Lab 3.79 mmol/L (3.70-5.30); pH, Arterial 7.54 (7.35-7.45)
[2020-03-13 07:26] LABS: ALV-art Gradient 142.025 mmHg (0-20); Puncture Site RRA
--- NOTE | 2020-03-13 07:32 | PDOC.FM ---
- Subjective Subjective: Yesterday around noon had run of SVT with hypotension, see documentation. Given adenosine and started on amio with resolution. Family meeting and family decided on DNR code status. Overnight, no acute events. Placed on tube feeds. Sedated and ventilated. - Objective MAR Reviewed: Yes Vital Signs & Weight: Vital Signs (12 hours) Temp Pulse Resp BP Pulse Ox 03/13/20 07:03 88 156/97 H 03/13/20 07:00 100.3 F H 87 18 99 03/13/20 06:00 99.7 F H 18 03/13/20 04:00 99.7 F H 22 H 03/13/20 02:49 87 18 99 03/13/20 02:48 88 03/13/20 02:00 18 03/13/20 00:00 100.3 F H 18 03/12/20 22:36 82 18 100 03/12/20 22:34 82 03/12/20 22:00 18 03/12/20 21:16 82 160/101 H 03/12/20 20:00 98.5 F 21 H 100 Weight Admit Weight 61.689 kg Weight 58.9 kg Most Recent Monitor Data Heart Rate from ECG 87 NIBP 156/97 NIBP BP-Mean 116 Respiration from ECG 18 SpO2 99 I&O: 03/12/20 03/13/20 03/14/20 06:59 06:59 06:59 Intake Total 292.8 1150 Output Total 600 400 Balance -307.2 750 Result Diagrams: 03/13/20 03:30 03/13/20 03:30 Phys Exam - Physical Examination Thin, sedated HEENT: moist MMs PERRL, ETT in place, NG tube in place Neck: supple Respiratory: no wheezing, no rales, no rhonchi, clear to auscultation bilateral Cardiovascular: RRR 3/6 systolic murmur best heard at left sternal border Gastrointestinal: soft, non-tender, no distention, positive bowel sounds Musculoskeletal: no edema Dx/Plan (1) Anoxic brain injury Status: Acute (2) ESRD on dialysis Code(s): N18.6 - END STAGE RENAL DISEASE; Z99.2 - DEPENDENCE ON RENAL DIALYSIS Status: Acute (3) Acute respiratory failure with hypoxia Code(s): J96.01 - ACUTE RESPIRATORY FAILURE WITH HYPOXIA Status: Acute - Plan Plan: 44yo M with h/o ESRD on HD, COPD, HTN who presented s/p ROSC, acute hypoxic re spiratory failure 2/2 missed HD and volume overload, and anoxic brain injury #Acute hypoxic respiratory failure 2/2 volume overload from HD non-compliance - ESRD on HD (MWF) - missed HD prior to presentation - CXR with volume overload, slightly worsened this morning, no focal consolidation - Intubated (03/11). SIMV + PS - Echo 02/25 with EF 55-60%, severe concentric LVH, mod-severe aortic regurg - Nephrology, consulted, recommended HD - Pulm, Dr Russell, consulted, recommended neuro consult with EEG, supportive care, poor prognosis #Cardiac arrest s/p ROSC 2/2 above, now with episode of SVT - Patient requiring mechanical ventilation for respiratory support, no pressor support at this time - Anoxic brain injury - Run of SVT yesterday with hypotension, s/p adenosine and now on Amio gtt. Continuous cardiac monitoring #Anoxic brain injury 2/2 Cardiac arrest - CT Brain - no acute findings - Myoclonic jerks suppressed on propofol - Pupils reactive to light, cough - Neurology, Dr Perales consulted, appreciate recs, EEG with burst suppression, confirmed anoxic brain injury, poor prognosis - Routine neurochecks, seizure precautions #Leukocytosis with left shift - WBC uptrending to 23.9, left shift with 12%bands - Fever up to 100.3 overnight - No focal consolidation on CXR - Suspect 2/2 ROSC, SVT, anoxic brain injury - monitor, consider BCx and antibiotics if source presents as well as patient family goals of care #Lactic Acidosis, resolved - LA 10.5 on arrival --> 3.2, likely 2/2 hypoxia #Type II NSTEMI 2/2 Cardiac Arrest - EKG SR with T wave inversions in V5-6, no ST elevation - Trop 0.263, 0.463, 0.826, - Consider repeat trop after HD, has will continue to be elevated from ROSC and SVT #ESRD on M/W/F HD - BUN/Cr 60/13 on admission - Nephrology, Dr. Olguin, apprec recs #HTN - Home BP meds, monitoring. #COPD - Not in acute exacerbation - SHARAD chapman per pulm PCP: CC- None ABx: None IVFs: KVO VTE PPX: Heparin TID GI PPX: Protonix IV Code status: DNR Lines: Left IJ (03/11) Vent Settings: SIMV + PS: 40% FiO2, 500TV, 5 PEEP, 10 PS Tube Feeds: 30cc/hr Sedation: Propofol @ 25mcg/kg/min Gtt: Amio @ 16.7cc/hr Dispo: Admitted to CCU for continued supportive care. Anoxic brain injury. Prognosis very poor. Family transitioned to DNR yesterday. Will continue to discuss prognosis with family and determine goals of care. Apprec Palliative car e assistance.
[2020-03-13] MEDS: hydrALAZINE 25 MG TAB PER TUBE SCH ×3 (08:33→20:33)
[2020-03-13] MEDS: Heparin 5,000 UNITS/ML VIAL SC SCH ×3 (08:34→20:22)
[2020-03-13] MEDS: Folic Acid/Vit B Comp W-C PER TUBE SCH (08:34)
[2020-03-13] MEDS: Pantoprazole 40 MG VIAL IVP SCH (08:34)
[2020-03-13] MEDS: Aspirin 81 mg Enteric Coated Tablet PER TUBE SCH (08:34)
[2020-03-13] MEDS: NIFEdipine XL 60 MG TAB PO SCH (08:34)
--- NOTE | 2020-03-13 08:46 | RAD ---
PORTABLE CHEST: HISTORY: Followup pneumonia. COMPARISON: Prior day's study. FINDINGS: Endotracheal and NG tubes and central line are all unchanged in position. Parenchymal infiltrates ar e fairly similar to the previous exam given the differences in technique. Some of the left upper lob e parenchymal changes may be slightly increased. IMPRESSION: Suggestion of some subtle increase in the upper lobe infiltrative change. POS: OFF
--- NOTE | 2020-03-13 09:24 | PRG ---
DATE OF SERVICE: 03/13/2020 SUBJECTIVE: The patient remains intubated on mechanical ventilation. He goes into myoclonus when his propofol was lowered. OBJECTIVE: VITAL SIGNS: Temperature 100.3, pulse 92, blood pressure 170/106, 24 hours intake 1150, output 400. HEENT: He has dysconjugate eye gaze. No blink reflex. No corneal reflex. He has spontaneous cough. NECK: No JVD. LUNGS: Fairly clear. CARDIAC: S1 and S2, regular. ABDOMEN: Soft. EXTREMITIES: He does withdrawal with his feet. IMAGING STUDIES: His x-ray shows left upper lobe infiltrate. LABORATORY DATA: Sodium 144, potassium 3.8, chloride 100, CO2 of 26, BUN 52, creatinine 10.0, glucose 99. PH 7.54, pCO2 of 28, PO2 of 107, SIMV rate 18, tidal volume 500, PEEP 5, pressure support 10, FiO2 of 40%, his respiratory rate was then lowered to 12. His white blood cell count was 23.9, hematocrit 26.0, and platelet count 195. ASSESSMENT: 1. Acute respiratory failure requiring mechanical ventilation. 2. Severe anoxic brain injury after cardiopulmonary arrest. 3. End-stage renal disease, requiring hemodialysis. 4. Aspiration pneumonia. PLAN: I do not see a situation where this patient is going to regain his previous quality of life. Family dynamics are interesting. It looks like the patient has been made a DNR, but they have not quite made to the point where they are willing to withdraw care. I do not see any hope for recent recovery and I would fully support withdrawal of care on this patient making him comfortable. Job ID: [id number]
--- NOTE | 2020-03-13 09:28 | PRG ---
DATE OF SERVICE: 03/12/2020 SUBJECTIVE: This is a 44-year-old gentleman being seen for end-stage renal disease. The patient is resting. PHYSICAL EXAMINATION: General: The patient is resting. Vital Signs: Afebrile, pulse 75, breathing at 16, blood pressure 156/97. HEENT: Head normocephalic and atraumatic. Eyes intact, no ulcers. Nose intact, no ulcers. Ears intact, no ulcers. Neck: Supple. No JVD. Chest: Symmetrical and clear. Cardiovascular: Shows S1 and S2, no rub, no murmur. Gastrointestinal: Abdomen is soft, bowel sounds positive. Extremities: Show no edema or ulcers. Skin: Shows no rash or petechiae. Musculoskeletal: Shows no joint swelling or stiffness. Genitourinary: Shows no Craig or CVA tenderness. Neurologic: The patient is resting. LABORATORY DATA: Labs reviewed. ASSESSMENT AND PLAN: 1. Stage 6 chronic kidney disease, plan dialysis tomorrow. 2. Hypertension, stable. 3. Anemia, stable. 4. Medication based on GFR appropriate. Job ID: [id number]
--- NOTE | 2020-03-13 09:46 | PRG ---
DATE OF SERVICE: 03/13/2020 SUBJECTIVE: A 44-year-old gentleman being seen for end-stage renal disease. The patient is resting, intubated. PHYSICAL EXAMINATION: GENERAL: The patient is resting, intubated. VITAL SIGNS: Afebrile, pulse 75, breathing 16, blood pressure was 156/95. HEENT: Head normocephalic and atraumatic. Eyes intact, no ulcers. Nose intact, no ulcers. Ears intact, no ulcers. Neck: Supple. No JVD. Chest: Symmetrical and clear. Cardiovascular: Shows S1 and S2, no rub, no murmur. Gastrointestinal: Abdomen is soft, bowel sounds positive. Extremities: Show no edema or ulcers. Skin: Shows no rash or petechiae. Musculoskeletal: Shows no joint swelling or stiffness. Genitourinary: Shows no Craig or CVA tenderness. Neurologic: The patient is resting. LABORATORY DATA: Reviewed. ASSESSMENT AND PLAN: 1. Stage 6 chronic kidney disease. Plan dialysis today. 2. Hypertension, stable. 3. Anemia, stable. Medication based on GFR appropriate. Job ID: [id number]
[2020-03-13] MEDS: Piperacillin/Tazobactam 2.25 GM in Sodium Chloride 0.9% 100 ML IVPB SCH ×2 (11:06→20:22)
[2020-03-13] MEDS: Amiodarone 450 MG, Admixture Fee 1 EACH in Dextrose 5% in Water 250 ML IVPB SCH (13:08)
[2020-03-13] MEDS: Lorazepam 2 MG/ML VIAL SLOW IVP PRN ×2 (13:09→16:15)
--- NOTE | 2020-03-13 13:54 | CON ---
DATE OF CONSULTATION: REASON FOR CONSULTATION: Recent [id number] arrest. PRIMARY AUDIO VISUAL COORDINATOR: Dr. Ugo Del Rosario. HISTORY OF PRESENT ILLNESS: Mr. Rahman is a 44-year-old gentleman with history of end-stage renal disease, who recently had an [id number] arrest. The history is obtained from his mother. This was a witnessed event. She states he was coughing and developed shortness of breath. He then stopped breathing. CPR ensued. She states EMS was summoned. CPR ensued for 5 minutes. He then had return of spontaneous circulation. His troponin was slightly elevated, thereby necessitating the consultation. PAST MEDICAL HISTORY: End-stage renal disease, chronic systolic failure, polycystic kidney disease, hypertension, hyperlipidemia, previous noncompliance. ALLERGIES: NONE. HOME MEDICATIONS: Unknown. SOCIAL HISTORY: No current tobacco or alcohol use. REVIEW OF SYSTEMS: Unobtainable. PHYSICAL EXAMINATION: GENERAL: Currently intubated and sedated. VITAL SIGNS: Blood pressure 122/85, pulse 115, respirations 20. NEUROLOGIC: The patient is alert and oriented x3 with no focal neurologic deficits. HEENT: Sclerae without icterus. Mouth has moist mucous membranes with normal pallor. NECK: No JVD. Carotid upstroke brisk. No bruits bilaterally. LUNGS: Clear to auscultation with unlabored respirations. BACK: No scoliosis or kyphosis. CARDIAC: Tachycardic. ABDOMEN: Soft, nontender, nondistended. No peritoneal signs present. No hepatosplenomegaly. No abnormal striae. EXTREMITIES: 2+ femoral and 2+ dorsalis pedis pulses. No cyanosis, clubbing, or edema. SKIN: No gross abnormalities. PERTINENT LABORATORY DATA: Hemoglobin 8.3. Creatinine 10.02. Troponin 0.826. IMPRESSION: 1. Cou-ag-blpeeguk arrest. 2. Respiratory failure. 3. End-stage renal disease. 4. Noncompliance. 5. Polycystic kidney disease. RECOMMENDATIONS: Elevated troponin, likely result from CPR. The patient has been in the hospital since the . At this point, we will continue close observation. Dr. Ross Perales has been consulted and suggested anoxic brain injury with burst suppression, suggesting poor prognosis. At this point, we would not have anything further to add. He is currently on low-dose aspirin. May consider low-dose beta-dwayne therapy, but heart rate may also be response to anoxic brain injury. Unfortunately, prognosis appears poor. Job ID: [id number]
[2020-03-13] MEDS: Adenosine 6 MG/2 ML VIAL IVP SCH (15:37)
[2020-03-13] MEDS: Acetaminophen 650 MG/20.3 ML UDCUP PER TUBE PRN ×2 (16:15→20:21)
[2020-03-14] MEDS: Propofol 1,000 MG/100 ML VIAL IV PRN ×4 (01:00→21:41)
[2020-03-14] MEDS: Amiodarone 450 MG, Admixture Fee 1 EACH in Dextrose 5% in Water 250 ML IVPB SCH ×2 (03:35→18:08)
[2020-03-14 04:28] LABS: #Eosinphils 0.1 thou/uL (0.0-0.7); #Lymphocytes 0.9 thou/uL (1.20-3.40); #Monocytes 1.3 thou/uL (0.11-0.59); #Neutrophils 20.4 thou/uL (1.40-6.50); %Eosinophils 0.4 % (0.0-10.0); %Lymphocytes 4.1 % (21.0-51.0); %Monocytes 5.6 % (0.0-10.0); %Neutrophils 89.9 % (42.0-75.0); Hemoglobin 7.7 g/dL (14.0-18.0); Mean Corpuscular HGB CONC 32.2 g/dL (32.0-36.0); Mean Corpuscular Hemoglobin 27.6 pg (27.0-31.0); Mean Corpuscular Volume 85.5 fL (78.0-98.0); Mean Platelet Volume 9.3 fL (7.4-10.4); Platelet Count 187 thou/uL (130-400); RBC Distribution Width 17.5 % (11.5-14.5); Red Blood Cell (RBC) Count 2.79 mill/uL (4.70-6.10); White Blood Cell (WBC) Count 22.7 thou/uL (4.8-10.8)
[2020-03-14 04:49] LABS: ALT (SGPT) 22 U/L (8-55); AST (SGOT) 76 U/L (5-34); Alkaline Phosphatase 103 U/L (40-110); Anion Gap 17 mmol/L (10-20); BUN (Urea Nitrogen) 47 mg/dL (8.9-20.6); Calc. Creatinine Clearance 11 mL/min (70-130); Calcium 8.6 mg/dL (7.8-10.44); Carbon Dioxide 28 mmol/L (22-29); Chloride 96 mmol/L (98-107); Globulin 3.4 g/dL (2.4-3.5); Glucose 108 mg/dL (70-105); Potassium 3.8 mmol/L (3.5-5.1); Protein, Total 6.4 g/dL (6.0-8.3); Sodium 137 mmol/L (136-145)
--- NOTE | 2020-03-14 06:23 | PDOC.FM ---
- Subjective Subjective: Fevered up to 102 yesterday evening, started on Zosyn yesterday for suspected pneumonia. No acute events overnight. Met with patient's mother and spoke with daughter over the phone. Family wants to begin talking about hosp ice/compassionate extubation. Palliative notified and will meet with family today. Was taken off sedation yesterday and had continued myoclonic jerks, no purposeful movements. - Objective MAR Reviewed: Yes Vital Signs & Weight: Vital Signs (12 hours) Temp Pulse Resp BP Pulse Ox 03/14/20 04:00 97.9 F 12 03/14/20 03:07 76 18 99 03/14/20 03:06 76 03/14/20 02:00 19 03/14/20 00:00 98.5 F 23 H 100 03/13/20 22:00 99.6 F 32 H 03/13/20 21:43 98 27 H 97 03/13/20 21:42 98 03/13/20 20:33 111 H 123/86 03/13/20 20:21 102.6 F H 111 H 27 H 123/86 03/13/20 20:00 102.6 F H 28 H 97 03/13/20 19:00 101.0 F H 03/13/20 18:38 116 H 39 H 90 L 03/13/20 18:36 113 H Weight Admit Weight 61.689 kg Weight 59.7 kg Most Recent Monitor Data Heart Rate from ECG 71 NIBP 117/78 NIBP BP-Mean 91 Respiration from ECG 17 SpO2 99 I&O: 03/12/20 03/13/20 03/14/20 06:59 06:59 06:59 Intake Total 292.8 1150 1104 Output Total 600 400 Balance -307.2 750 1104 Result Diagrams: 03/14/20 04:15 03/14/20 04:15 Phys Exam - Physical Examination Constitutional: NAD intubated and sedated PERRL, ETT and OG in place Neck: supple left IJ in place, dressing c/d/i Respiratory: no wheezing, no rales, no rhonchi, clear to auscultation bilateral Cardiovascular: RRR 3-6 systolic blowing murmur best heard at left sternal border Gastrointestinal: soft, no distention, positive bowel sounds Musculoskeletal: no edema, pulses present Dx/Plan (1) Anoxic brain injury Status: Acute (2) ESRD on dialysis Code(s): N18.6 - END STAGE RENAL DISEASE; Z99.2 - DEPENDENCE ON RENAL DIALYSIS Status: Acute (3) Acute respiratory failure with hypoxia Code(s): J96.01 - ACUTE RESPIRATORY FAILURE WITH HYPOXIA Status: Acute - Plan Plan: 44yo M with h/o ESRD on HD, COPD, HTN who presented s/p ROSC, acute hypoxic respiratory failure 2/2 missed HD and volume overload, and anoxic brain injury #Anoxic brain injury 2/2 Cardiac arrest - CT Brain - no acute findings - Myoclonic jerks suppressed on propofol - Pupils reactive to light, cough - Neurology, Dr Perales consulted, appreciate recs, EEG with burst suppression, confirmed anoxic brain injury, poor prognosis - Routine neurochecks, seizure precautions - Overall very poor prognosis and potential for recovery #Acute hypoxic respiratory failure 2/2 volume overload from HD non-compliance - ESRD on HD (MWF) - missed HD prior to presentation - Intubated (03/11). SIMV + PS - Echo 02/25 with EF 55-60%, severe concentric LVH, mod-severe aortic regurg - Nephrology, consulted, Continued HD - Pulm, Dr Russell, consulted, supportive care, poor prognosis #Cardiac arrest s/p ROSC /2 above, now with episode of SVT - Patient requiring mechanical ventilation for respiratory support, no pressor support at this time - Run of SVT 03/12 with hypotension, s/p adenosine and now on Amio gtt. Continuous cardiac monitoring - Cards consulted, consider beta dwayne, no further recommendation at this time, poor prognosis #Aspiration Pneumonia s/p ROSC on Ventilator - WBC 22.7, procal this AM pending - CXR with LLU pneumonia - Started Zosyn 03/13, BCx Pending, continue to monitor - Consider gram positive coverage if fevers continue #Lactic Acidosis, resolved - LA 10.5 on arrival --> 3.2, likely 2/2 hypoxia #Type II NSTEMI 2/2 Cardiac Arrest - EKG SR with T wave inversions in V5-6, no ST elevation - Trop 0.263, 0.463, 0.826, #ESRD on M/W/F HD - BUN/Cr 60/13 on admission - Nephrology, Dr. Olguin, apprec recs #HTN - Home BP meds, monitoring. #COPD - Not in acute exacerbation - SHARAD adela per pulm PCP: CC- None Code status: DNR ABx: Zosyn (03/13) IVFs: KVO VTE PPX: Heparin TID GI PPX: Protonix IV Lines: Left IJ (03/11) Vent Settings: SIMV + PS: 40% FiO2, 500TV, 5 PEEP, 10 PS Tube Feeds: 30cc/hr Sedation: Propofol @ 35mcg/kg/min Gtt: Amio @ 0.5mg/min Dispo: Admitted to CCU for continued supportive care. Anoxic brain injury. Prognosis very poor. Family discussion yesterday and desiring to move towards hospice and compassionate extubation. Palliative care to assist. Apprec finance consultant recommendation and assistance.
[2020-03-14] MEDS: Aspirin 81 mg Enteric Coated Tablet PER TUBE SCH (07:28)
[2020-03-14] MEDS: Heparin 5,000 UNITS/ML VIAL SC SCH ×3 (07:28→21:41)
[2020-03-14] MEDS: NIFEdipine XL 60 MG TAB PO SCH (07:28)
[2020-03-14] MEDS: hydrALAZINE 25 MG TAB PER TUBE SCH ×3 (07:28→21:41)
[2020-03-14] MEDS: Folic Acid/Vit B Comp W-C PER TUBE SCH (07:28)
[2020-03-14] MEDS: Pantoprazole 40 MG VIAL IVP SCH (07:29)
[2020-03-14] MEDS: Piperacillin/Tazobactam 2.25 GM in Sodium Chloride 0.9% 100 ML IVPB SCH ×2 (07:29→21:42)
[2020-03-14 07:36] LABS: Actual Bicarbonate (HCO3a) 24.6 mEq/L (22-28); Base Excess (BEa) 1.6 mEq/L (-2.0 to +3.0); CO2 Tension 31.7 mmHg (35.0-45.0); Calcium, Ionized (arterial) 1.02 mmol/L (1.12-1.30); Carboxyhemoglobin (COHb) 1.3 gm% (0.0-3.0); Hemoglobin (Hb) 7.9 g/dL (14.0-18.0); O2 Tension (PaO2), arterial 128.9 mmHg (80.0-100.0); Potassium - ABG Lab 3.86 mmol/L (3.70-5.30); pH, Arterial 7.51 (7.35-7.45)
[2020-03-14 07:37] LABS: ALV-art Gradient 116.675 mmHg (0-20); Puncture Site RRA
--- NOTE | 2020-03-14 07:57 | RAD ---
CHEST 1 VIEW: Date: 03/14/2020 INDICATION: History of pneumonia. COMPARISON: Prior exam dated 03/13/2020. FINDINGS: There is cardiomegaly and pulmonary vascular congestion that is present. The extent of the central ed martha pattern appears mildly improved. Left-sided pleural parenchymal opacity persists. ET tube, gastri c catheter, and left IJ central venous catheter are unchanged. No pneumothorax is evident. IMPRESSION: Improvement in the central edema pattern from the prior exam. Left-sided pleural parenchymal opacitie s persist. Cardiomegaly is stable. Tubes and lines are stable. No pneumothorax. POS: BH
--- NOTE | 2020-03-14 09:42 | PRG ---
DATE OF SERVICE: 03/14/2020 35 minutes critical care time. SUBJECTIVE: The patient remains intubated on mechanical ventilation without much change overnight. OBJECTIVE: VITAL SIGNS: Temperature 97.9, pulse rate 75, blood pressure 95/65, O2 saturation 97%. NEUROLOGIC: He is still having myoclonic jerking activity, but does withdraw to pain in his lower extremities. HEENT: Unchanged. NECK: No JVD. LUNGS: Coarse breath sounds. CARDIAC: S1 and S2. Regular. ABDOMEN: Soft. EXTREMITIES: No edema. LABORATORY DATA: White blood cell count 22.7, hematocrit 23.8, and platelet count 187. PH of 7.51, pCO2 of 31, PO2 of 120 on SIMV rate 12 , FiO2 40%. Sodium 137, potassium 3.8, chloride 96, CO2 of 28, BUN 47, creatinine 7.2, and glucose 108. Procalcitonin level is 40. X-ray continues to show bilateral infiltrative changes. ASSESSMENT: 1. Status post cardiopulmonary arrest. 2. Severe anoxic brain injury. 3. Acute respiratory failure requiring mechanical ventilation. 4. End-stage renal disease, medical noncompliance. PLAN: At this point, his neurologic status is probably as good as it is going to get. I would fully support compassionate extubation and hospice care. As I see no reasonable hope for functional recovery. In the meantime, we are continuing supportive care with mechanical ventilation and I will adjust the settings. Job ID: [id number]
--- NOTE | 2020-03-14 10:44 | PRG ---
DATE OF SERVICE: 03/14/2020 SUBJECTIVE: Mr. Rahman remains unresponsive on the ventilator. He has some sedation. The nurse said when the sedation is reduced, his heart rate increases. OBJECTIVE: VITAL SIGNS: His blood pressure is 95/65, pulse is in the 80s. LUNGS: Clear. CARDIAC: There is a harsh systolic murmur of the right upper sternal border. No diastolic murmur. ASSESSMENT: 1. End-stage renal disease. 2. Hypertensive heart disease. 3. Supraventricular tachycardia. 4. Out of hospital arrest, probably cardiac arrest. 5. Severe anoxic brain injury. Consultations are being made with the family about withdrawing care. The prognosis is grim. He is still on intravenous amiodarone. No changes at this time. If they like to withdraw care, then it would be reasonable to stop the intravenous amiodarone. Job ID: [id number]
--- NOTE | 2020-03-14 10:54 | PRG ---
DATE OF SERVICE: 03/14/2020 SUBJECTIVE: A 44-year-old gentleman, is resting, nonverbal, and intubated. OBJECTIVE: General: The patient is resting. Vital Signs: Afebrile, pulse 75, breathing at 16, blood pressure 95/65. HEENT: Head normocephalic and atraumatic. Eyes intact, no ulcers. Nose intact, no ulcers. Ears intact, no ulcers. Neck: Supple. No JVD. Chest: Symmetrical and clear. Cardiovascular: Shows S1 and S2, no rub, no murmur. Gastrointestinal: Abdomen is soft, bowel sounds positive. Extremities: Show no edema or ulcers. Skin: Shows no rash or petechiae. Musculoskeletal: Shows no joint swelling or stiffness. Genitourinary: Shows no Craig or CVA tenderness. Neurologic: The patient is resting. LABORATORY DATA: Reviewed. ASSESSMENT AND PLAN: 1. Stage 6 chronic kidney disease. Plan dialysis. 2. Anemia. We would recommend transfusion. 3. Hypertension, stable. 4. Medication based on GFR appropriate. Job ID: [id number]
[2020-03-14] MEDS: Lorazepam 2 MG/ML VIAL SLOW IVP PRN ×2 (14:07→21:42)
[2020-03-15] MEDS: Propofol 1,000 MG/100 ML VIAL IV PRN ×3 (03:22→22:00)
[2020-03-15 03:54] LABS: #Eosinphils 0.1 thou/uL (0.0-0.7); #Lymphocytes 0.7 thou/uL (1.20-3.40); #Monocytes 0.8 thou/uL (0.11-0.59); %Basophils 0.1 % (0.0-1.0); %Eosinophils 0.6 % (0.0-10.0); %Lymphocytes 4.2 % (21.0-51.0); %Monocytes 4.9 % (0.0-10.0); %Neutrophils 90.1 % (42.0-75.0); Hemoglobin 6.7 g/dL (14.0-18.0); Mean Corpuscular HGB CONC 32.1 g/dL (32.0-36.0); Mean Corpuscular Hemoglobin 27.3 pg (27.0-31.0); Mean Corpuscular Volume 85.1 fL (78.0-98.0); Mean Platelet Volume 9.4 fL (7.4-10.4); Platelet Count 178 thou/uL (130-400); RBC Distribution Width 17.9 % (11.5-14.5); Red Blood Cell (RBC) Count 2.46 mill/uL (4.70-6.10); White Blood Cell (WBC) Count 16.6 thou/uL (4.8-10.8)
[2020-03-15 04:12] LABS: ALT (SGPT) 17 U/L (8-55); AST (SGOT) 60 U/L (5-34); Albumin 2.9 g/dL (3.5-5.0); Alkaline Phosphatase 76 U/L (40-110); Anion Gap 21 mmol/L (10-20); BUN (Urea Nitrogen) 73 mg/dL (8.9-20.6); Bilirubin, Total 0.7 mg/dL (0.2-1.2); Calc. Creatinine Clearance 9 mL/min (70-130); Calcium 8.6 mg/dL (7.8-10.44); Carbon Dioxide 26 mmol/L (22-29); Chloride 94 mmol/L (98-107); Globulin 3.5 g/dL (2.4-3.5); Glucose 100 mg/dL (70-105); Potassium 4.5 mmol/L (3.5-5.1); Protein, Total 6.4 g/dL (6.0-8.3); Sodium 136 mmol/L (136-145)
--- NOTE | 2020-03-15 07:08 | PDOC.FM ---
- Subjective Subjective: No acute changes overnight. Still with myoclonic jerks when off sedation. Family moving towards compassionate extubation and received information on hospice yesterday. - Objective MAR Reviewed: Yes Vital Signs & Weight: Vital Signs (12 hours) Temp Pulse Resp BP Pulse Ox 03/15/20 06:00 98.5 F 15 03/15/20 04:00 18 03/15/20 02:40 68 117/77 03/15/20 02:00 18 03/15/20 00:20 73 139/97 H 03/15/20 00:00 98.6 F 21 H 03/14/20 22:00 30 H 03/14/20 21:56 87 149/95 H 03/14/20 21:41 89 149/85 H 03/14/20 20:00 98.4 F 26 H 98 Weight Admit Weight 61.689 kg Weight 54.5 kg Most Recent Monitor Data Heart Rate from ECG 67 NIBP 136/86 NIBP BP-Mean 102 Respiration from ECG 26 SpO2 100 I&O: 03/14/20 03/15/20 03/16/20 06:59 06:59 06:59 Intake Total 1717 1968 Output Total 0 400 Balance 1717 1568 Result Diagrams: 03/15/20 03:30 03/15/20 03:30 Phys Exam - Physical Examination Constitutional: NAD (sedated) ETT and OG in place. PERRL Neck: supple Respiratory: no wheezing, no rales, no rhonchi, clear to auscultation bilateral Cardiovascular: RRR 3/6 harsh systolic blowing murmur at left sternal border Gastrointestinal: soft, no distention, positive bowel sounds Musculoskeletal: no edema Dx/Plan (1) Anoxic brain injury Status: Acute (2) ESRD on dialysis Code(s): N18.6 - END STAGE RENAL DISEASE; Z99.2 - DEPENDENCE ON RENAL DIALYSIS Status: Acute (3) Acute respiratory failure with hypoxia Code(s): J96.01 - ACUTE RESPIRATORY FAILURE WITH HYPOXIA Status: Acute - Plan Plan: 44yo M with h/o ESRD on HD, COPD, HTN who presented s/p ROSC, acute hypoxic respiratory failure 2/2 missed HD and volume overload, and anoxic brain injury #Anoxic brain injury 2/2 Cardiac arrest - CT Brain - no acute findings - Myoclonic jerks suppressed on propofol - Pupils reactive to light, cough - Neurology, Dr Perales consulted, appreciate recs, EEG with burst suppression, confirmed anoxic brain injury, poor prognosis - Routine neurochecks, seizure precautions - Overall very poor prognosis and very low potential for meaningful recovery - Family considering compassionate extubation, Palliative care assisting, will continue to discuss with family today #Acute hypoxic respiratory failure 2/2 volume overload from HD non-compliance, stable on ventilator - ESRD on HD (MWF) - missed HD prior to presentation - Intubated (03/11). SIMV + PS - Echo 02/25 with EF 55-60%, severe concentric LVH, mod-severe aortic regurg - Nephrology, consulted, Continued HD - Pulm, Dr Russell, consulted, supportive care, poor prognosis #Cardiac arrest s/p ROSC 2/2 above, episode of SVT - Patient requiring mechanical ventilation for respiratory support, no pressor support at this time - Run of SVT 03/12 with hypotension, s/p adenosine and now on Amio gtt. Continuous cardiac monitoring - Cards consulted, consider beta dwayne, no further recommendation at this time, poor prognosis #Aspiration Pneumonia s/p ROSC on Ventilator - WBC 22.7, procal 40 - CXR with DAKOTAH pneumonia - Started Zosyn 03/13, BCx NGTD, continue to monitor - Consider gram positive coverage if fevers continue #Anemia - Acute on chronic - Hb 6.7 this AM, will discuss with family this AM if they want to pursue blood transfusions #Lactic Acidosis, resolved - LA 10.5 on arrival --> 3.2, likely 2/2 hypoxia #Type II NSTEMI 2/2 Cardiac Arrest - EKG SR with T wave inversions in V5-6, no ST elevation - Trop 0.263, 0.463, 0.826, #ESRD on M/W/F HD - BUN/Cr 60/13 on admission - Nephrology, Dr. Olguin, apprec recs #HTN - Home BP meds, monitoring. #COPD - Not in acute exacerbation - SHARAD chapman per pulm PCP: CC- None Code status: DNR ABx: Zosyn (03/13) IVFs: KVO VTE PPX: Heparin TID GI PPX: Protonix IV Lines: Left IJ (03/11) Vent Settings: SIMV + PS: 40% FiO2, 500TV, 5 PEEP, 10 PS Tube Feeds: 30cc/hr Sedation: Propofol @ 40mcg/kg/min Gtt: Amio @ 0.5mg/min Dispo: Admitted to CCU for continued supportive care. Anoxic brain injury. Prognosis very poor. Family continues to discuss with likely transition to hospice with comfort extubation. Apprec big machine consultant recommendation and assistance.
--- NOTE | 2020-03-15 07:51 | RAD ---
Portable frontal chest radiograph: 03/15/2020 COMPARISON: 03/14/2020 HISTORY: Pneumonia FINDINGS: Stable endotracheal tube, nasogastric tube, and left vascular catheter. Pulmonary vascular prominence is noted. Mild linear density in the right perihilar region. Persistent dense opacity in the left base noted with obscuration of the left hemidiaphragm and blunti ng of the left costophrenic angle. Aeration within the perihilar regions has improved since the prior examination. IMPRESSION: Stable lines and tubes. Persistent dense nonspecific consolidation/collapse of the left l ower lobe. Improving aeration within the perihilar regions. Of note, opacities bilaterally have improved since the 03/13/2020 examination bilaterally.
[2020-03-15 08:12] LABS: Actual Bicarbonate (HCO3a) 24.6 mEq/L (22-28); Base Excess (BEa) 0.1 mEq/L (-2.0 to +3.0); Calcium, Ionized (arterial) 0.99 mmol/L (1.12-1.30); Hemoglobin (Hb) 7.6 g/dL (14.0-18.0); O2 Tension (PaO2), arterial 108.7 mmHg (80.0-100.0); Potassium - ABG Lab 4.47 mmol/L (3.70-5.30); pH, Arterial 7.42 (7.35-7.45)
[2020-03-15] MEDS: Pantoprazole 40 MG VIAL IVP SCH (08:12)
[2020-03-15] MEDS: hydrALAZINE 25 MG TAB PER TUBE SCH ×3 (08:12→22:23)
[2020-03-15] MEDS: Scopolamine 1.5 mg/72 hour Patch TD SCH (08:13)
[2020-03-15] MEDS: Heparin 5,000 UNITS/ML VIAL SC SCH ×3 (08:14→20:09)
[2020-03-15] MEDS: Aspirin 81 mg Enteric Coated Tablet PER TUBE SCH (08:14)
[2020-03-15] MEDS: NIFEdipine XL 60 MG TAB PO SCH (08:14)
[2020-03-15 08:15] LABS: Puncture Site RRA
[2020-03-15] MEDS: Folic Acid/Vit B Comp W-C PER TUBE SCH (08:15)
[2020-03-15] MEDS: Piperacillin/Tazobactam 2.25 GM in Sodium Chloride 0.9% 100 ML IVPB SCH ×2 (08:15→20:09)
--- NOTE | 2020-03-15 10:26 | PRG ---
DATE OF SERVICE: 03/15/2020 SUBJECTIVE: 44-year-old gentleman, being seen for end-stage renal disease. The patient remains intubated. OBJECTIVE: General: The patient is resting. Vital Signs: Afebrile, pulse 79, breathing at 16, blood pressure 115/74. HEENT: Head normocephalic and atraumatic. Eyes intact, no ulcers. Nose intact, no ulcers. Ears intact, no ulcers. Neck: Supple. No JVD. Chest: Symmetrical and clear. Cardiovascular: Shows S1 and S2, no rub, no murmur. Gastrointestinal: Abdomen is soft, bowel sounds positive. Extremities: Show no edema or ulcers. Skin: Shows no rash or petechiae. Musculoskeletal: Shows no joint swelling or stiffness. Genitourinary: Shows no Craig or CVA tenderness. Neurologic: Motor intact. Cranial nerves intact. LABORATORY DATA: Hemoglobin 6.7. ASSESSMENT AND PLAN: 1. Stage 6 chronic kidney disease. Plan dialysis. 2. Hypertension, stable. 3. Anemia. Would recommend transfusion and dialysis. 4. Medication based on GFR appropriate. PROGNOSIS: Poor. Job ID: [id number]
--- NOTE | 2020-03-15 11:52 | PRG ---
DATE OF SERVICE: 03/15/2020 35 minutes of critical care time. SUBJECTIVE: The patient remains intubated on mechanical ventilation with no acute changes overnight. OBJECTIVE: VITAL SIGNS: Temperature 98.5, pulse 83, blood pressure 119/74, O2 saturation 96%. HEENT: Unchanged. NECK: No JVD. LUNGS: Clear. CARDIAC: S1 and S2. Regular. ABDOMEN: Soft. EXTREMITIES: No edema. NEUROLOGIC: He will withdraw to pain in his lower extremities and open his eyelids to deep sternal rub. IMAGING STUDIES: His chest x-ray shows cardiomegaly. No mass, effusion, or infiltrate. LABORATORY DATA: White blood cell count 16, hematocrit 21, platelet count 178. The pH is 7.42, pCO2 is 39, and pO2 is 108 on SIMV rate 12, tidal volume 450, PEEP 5, pressure support 10, and FiO2 40%. Sodium 136, potassium 4.5, chloride 94, CO2 of 21, BUN 73, creatinine 8.6, and glucose 100. ASSESSMENT: 1. Status post cardiopulmonary arrest with severe anoxic brain injury. 2. Acute respiratory failure requiring mechanical ventilation. 3. End-stage renal disease with medical noncompliance. PLAN: The daughter is the power of staff attorney for the patient and wants to withdraw care. She wants to support the patient's mother who is not endorsed withdrawal of care at the current time. They want to continue current intervention until Thursday. In the meantime, he is getting dialysis. He is getting transfused. He was started on antibiotics the other day for fever. So far, nothing has grown out of culture, so I would stop antibiotics after 7 days if family wants to continue support. Job ID: [id number]
[2020-03-15] MEDS: Amiodarone 450 MG, Admixture Fee 1 EACH in Dextrose 5% in Water 250 ML IVPB SCH (12:53)
[2020-03-15 18:21] LABS: Platelet Count 185 thou/uL (130-400)
[2020-03-16] MEDS: Amiodarone 450 MG, Admixture Fee 1 EACH in Dextrose 5% in Water 250 ML IVPB SCH (04:20)
[2020-03-16 04:23] LABS: #Eosinphils 0.3 thou/uL (0.0-0.7); #Lymphocytes 0.6 thou/uL (1.20-3.40); #Monocytes 0.8 thou/uL (0.11-0.59); #Neutrophils 8.4 thou/uL (1.40-6.50); %Basophils 0.4 % (0.0-1.0); %Eosinophils 2.5 % (0.0-10.0); %Monocytes 7.6 % (0.0-10.0); %Neutrophils 83.4 % (42.0-75.0); Hemoglobin 8.3 g/dL (14.0-18.0); Mean Corpuscular HGB CONC 33.2 g/dL (32.0-36.0); Mean Corpuscular Hemoglobin 28.3 pg (27.0-31.0); Mean Corpuscular Volume 85.3 fL (78.0-98.0); Mean Platelet Volume 9.5 fL (7.4-10.4); Platelet Count 192 thou/uL (130-400); RBC Distribution Width 16.6 % (11.5-14.5); Red Blood Cell (RBC) Count 2.93 mill/uL (4.70-6.10); White Blood Cell (WBC) Count 10.1 thou/uL (4.8-10.8)
[2020-03-16 04:45] LABS: ALT (SGPT) 17 U/L (8-55); AST (SGOT) 52 U/L (5-34); Alkaline Phosphatase 81 U/L (40-110); Anion Gap 20 mmol/L (10-20); BUN (Urea Nitrogen) 53 mg/dL (8.9-20.6); Bilirubin, Total 0.6 mg/dL (0.2-1.2); Calc. Creatinine Clearance 11 mL/min (70-130); Calcium 8.8 mg/dL (7.8-10.44); Carbon Dioxide 27 mmol/L (22-29); Chloride 93 mmol/L (98-107); Globulin 3.5 g/dL (2.4-3.5); Glucose 84 mg/dL (70-105); Potassium 4.2 mmol/L (3.5-5.1); Protein, Total 6.5 g/dL (6.0-8.3); Sodium 136 mmol/L (136-145)
[2020-03-16] MEDS: Lorazepam 2 MG/ML VIAL SLOW IVP PRN ×4 (05:39→20:29)
[2020-03-16] MEDS: Propofol 1,000 MG/100 ML VIAL IV PRN ×3 (06:12→23:08)
[2020-03-16] MEDS: hydrALAZINE 25 MG TAB PER TUBE SCH ×3 (07:09→19:44)
[2020-03-16] MEDS: Heparin 5,000 UNITS/ML VIAL SC SCH ×3 (07:09→19:46)
[2020-03-16] MEDS: Aspirin 81 mg Enteric Coated Tablet PER TUBE SCH (07:09)
[2020-03-16] MEDS: Folic Acid/Vit B Comp W-C PER TUBE SCH (07:09)
--- NOTE | 2020-03-16 07:09 | PDOC.FM ---
- Subjective Subjective: No acute events overnight. Spoke with daughter yesterday who states she is ready to transition him to hospice and proceed with extubation however other family members are not. Hope is to get through [place] and proceed with hospice and extubation on Thursday. Off sedation patient has continuous myoclonic jerking. - Objective MAR Reviewed: Yes Vital Signs & Weight: Vital Signs (12 hours) Temp Pulse Resp BP Pulse Ox 03/16/20 07:00 98.1 F 03/16/20 06:52 12 99 03/16/20 06:00 98.3 F 12 03/16/20 04:00 12 03/16/20 02:09 54 L 149/84 H 03/16/20 02:00 14 03/16/20 00:00 98.2 F 12 03/15/20 23:51 52 L 119/80 03/15/20 22:23 55 L 131/73 03/15/20 22:00 17 03/15/20 21:58 55 L 131/73 03/15/20 20:00 98.1 F 15 98 Weight Admit Weight 61.689 kg Weight 59 kg Most Recent Monitor Data Heart Rate from ECG 65 NIBP 169/96 NIBP BP-Mean 120 Respiration from ECG 32 SpO2 96 I&O: 03/15/20 03/16/20 03/17/20 06:59 06:59 06:59 Intake Total 1967 2023 Output Total 400 0 Balance 1568 2023 0 Result Diagrams: 03/16/20 03:10 03/16/20 03:10 Phys Exam - Physical Examination sedated, slight myclonic jerking even on light sedation HEENT: moist MMs ETT and OG in place Neck: supple IJ in place, c/d/i mild course BS BL Cardiovascular: RRR 3/6 systolic murmur best heard at left sternal border Gastrointestinal: soft, no distention, positive bowel sounds Musculoskeletal: no edema Dx/Plan (1) Anoxic brain injury Status: Acute (2) ESRD on dialysis Code(s): N18.6 - END STAGE RENAL DISEASE; Z99.2 - DEPENDENCE ON RENAL DIALYSIS Status: Acute (3) Acute respiratory failure with hypoxia Code(s): J96.01 - ACUTE RESPIRATORY FAILURE WITH HYPOXIA Status: Acute - Plan Plan: 44yo M with h/o ESRD on HD, COPD, HTN who presented s/p ROSC, acute hypoxic respiratory failure 2/2 missed HD and volume overload, and anoxic brain injury #Anoxic brain injury 2/2 Cardiac arrest - CT Brain - no acute findings - Myoclonic jerks suppressed on propofol but immediately return off sedation - Neurology, Dr Perales consulted, appreciate recs, EEG with burst suppression, confirmed anoxic brain injury, poor prognosis - Routine neurochecks, seizure precautions - Overall very poor prognosis and very low potential for meaningful recovery - Family considering compassionate extubation, Palliative care assisting, plan for possible transition on Thursday. Patient daughter given hospice company list yesterday. #Acute hypoxic respiratory failure 2/2 volume overload from HD non-compliance, stable on ventilator - ESRD on HD (MWF) - missed HD prior to presentation - Intubated (03/11). SIMV + PS. Occasionally over-breaths vent with a rate of 8- 9 - Echo 02/25 with EF 55-60%, severe concentric LVH, mod-severe aortic regurg - Nephrology, consulted, Continued HD - Pulm, Dr Russell, consulted, supportive care, poor prognosis #Cardiac arrest s/p ROSC 2/2 above, episode of SVT - Patient requiring mechanical ventilation for respiratory support, no pressor support at this time - Run of SVT 03/12 with hypotension, s/p adenosine and now on Amio gtt. Continuous cardiac monitoring - Cards consulted, consider beta dwayne, no further recommendation at this time, poor prognosis #Aspiration Pneumonia s/p ROSC on Ventilator - WBC 22.7, procal 40 - CXR with DAKOTAH pneumonia - Started Zosyn 03/13, BCx NGTD, continue to monitor - Complete 7 day course of abx (d/c on 03/20) #Anemia - Acute on chronic - Hb 6.7 -> 8.3 s/p 1u pRBC on 03/15, monitor, no s/s acute bleed #Lactic Acidosis, resolved - LA 10.5 on arrival --> 3.2, likely 2/2 hypoxia #Type II NSTEMI 2/2 Cardiac Arrest - EKG SR with T wave inversions in V5-6, no ST elevation - Trop 0.263, 0.463, 0.826, #ESRD on M/W/F HD - BUN/Cr 60/13 on admission - Nephrology, Dr. Olguin, apprec recs #HTN - Home BP meds, monitoring. #COPD - Not in acute exacerbation - SHARAD chapman per pulm PCP: CC- None Code status: DNR ABx: Zosyn (03/13) IVFs: KVO VTE PPX: Heparin TID GI PPX: Protonix IV Lines: Left IJ (03/11) Vent Settings: SIMV + PS: 40% FiO2, 450TV, 5 PEEP, 10 PS Tube Feeds: 30cc/hr Sedation: Propofol Gtt: Amio Dispo: Admitted to CCU for continued supportive care. Anoxic brain injury. Prognosis very poor. Family continues to discuss with likely transition to hospice with comfort extubation first of next week. Apprec project management consultant recommendation and assistance.
[2020-03-16] MEDS: Pantoprazole 40 MG VIAL IVP SCH (07:10)
[2020-03-16] MEDS: Piperacillin/Tazobactam 2.25 GM in Sodium Chloride 0.9% 100 ML IVPB SCH ×2 (07:10→19:45)
[2020-03-16] MEDS: NIFEdipine XL 60 MG TAB PO SCH (07:10)
--- NOTE | 2020-03-16 07:41 | RAD ---
CHEST 1 VIEW: Date: 03/16/2020 INDICATION: History of pneumonia. COMPARISON: Prior exam dated 03/15/2020. FINDINGS: The patient is intubated with gastric catheter and left IJ central venous catheter placement. Cardiom egaly and pulmonary vascular congestion and worsening perihilar air space disease suspicious for wors ening edema. There is enlarging small left and tiny right pleural effusion. No pneumothorax is eviden t. IMPRESSION: 1. Findings suspicious for worsening volume overload or CHF. 2. Persistent dense opacity in the left lower lobe may reflect some residual pneumonia. POS: BH
--- NOTE | 2020-03-16 11:18 | PRG ---
DATE OF SERVICE: 03/16/2020 SUBJECTIVE: A 44-year-old gentleman being seen for end-stage renal disease. The patient is intubated. PHYSICAL EXAMINATION: GENERAL: The patient is resting. VITAL SIGNS: Pulse 94, breathing 16, blood pressure 152/96. HEENT: Head normocephalic and atraumatic. Eyes intact, no ulcers. Nose intact, no ulcers. Ears intact, no ulcers. Neck: Supple. No JVD. Chest: Symmetrical and clear. Cardiovascular: Shows S1 and S2, no rub, no murmur. Gastrointestinal: Abdomen is soft, bowel sounds positive. Extremities: Show no edema or ulcers. Skin: Shows no rash or petechiae. Musculoskeletal: Shows no joint swelling or stiffness. Genitourinary: Shows no Craig or CVA tenderness. Neurologic: The patient is comatose. LABORATORY DATA: Hemoglobin 8.3. Creatinine 6.5. ASSESSMENT AND PLAN: 1. Stage 6 chronic kidney disease. No indication for dialysis. 2. Hypertension, stable. 3. Anemia, stable. 4. Medication based on GFR appropriate. 5. Overall prognosis is poor. Job ID: [id number]
--- NOTE | 2020-03-16 16:34 | PRG ---
DATE OF SERVICE: 03/16/2020 SUBJECTIVE: Herman Rahman remains ventilated. He opens his eyes, but does not blink to confrontation or touching his lids. When sedation is decreased, he has intermittent myoclonic jerking. OBJECTIVE: VITAL SIGNS: Blood pressure 143/88, heart rate is 108, respiratory rates in the 20s, FiO2 is at 50. LUNGS: Clear anteriorly. HEART: Regular rhythm. ABDOMEN: Soft. EXTREMITIES: Without edema. DIAGNOSTIC STUDIES: Chest radiograph suggests pulmonary edema. LABORATORY DATA: White count 10.1, hemoglobin 8.3, and platelets 192. Sodium 136, potassium 4.2, chloride 93, bicarb 27, BUN 53, and creatinine 6.5. IMPRESSION: 1. Status post [id number] arrest with hypoperfusion, anoxic brain injury. 2. End-stage renal disease. PLAN: Continue mechanical ventilation. EEG is not available likely for the next three days, but he clearly is not clinically brain . It would be nice to rule out seizure activity. I suspect all this is just burst suppression. Job ID: [id number]
[2020-03-16] MEDS: Acetaminophen 650 MG/20.3 ML UDCUP PER TUBE PRN (18:01)
[2020-03-17 03:37] LABS: #Lymphocytes 0.9 thou/uL (1.20-3.40); #Monocytes 1.2 thou/uL (0.11-0.59); #Neutrophils 12.3 thou/uL (1.40-6.50); %Basophils 0.1 % (0.0-1.0); %Eosinophils 0.3 % (0.0-10.0); %Neutrophils 85.7 % (42.0-75.0); Hemoglobin 8.5 g/dL (14.0-18.0); Mean Corpuscular HGB CONC 33.5 g/dL (32.0-36.0); Mean Corpuscular Hemoglobin 27.9 pg (27.0-31.0); Mean Corpuscular Volume 83.4 fL (78.0-98.0); Mean Platelet Volume 9.3 fL (7.4-10.4); Platelet Count 235 thou/uL (130-400); RBC Distribution Width 16.7 % (11.5-14.5); Red Blood Cell (RBC) Count 3.06 mill/uL (4.70-6.10); White Blood Cell (WBC) Count 14.4 thou/uL (4.8-10.8)
[2020-03-17 04:01] LABS: ALT (SGPT) 21 U/L (8-55); AST (SGOT) 52 U/L (5-34); Albumin 3.1 g/dL (3.5-5.0); Alkaline Phosphatase 79 U/L (40-110); Anion Gap 26 mmol/L (10-20); BUN (Urea Nitrogen) 78 mg/dL (8.9-20.6); Bilirubin, Total 0.6 mg/dL (0.2-1.2); Calc. Creatinine Clearance 9 mL/min (70-130); Calcium 8.5 mg/dL (7.8-10.44); Carbon Dioxide 22 mmol/L (22-29); Chloride 93 mmol/L (98-107); Globulin 3.8 g/dL (2.4-3.5); Glucose 77 mg/dL (70-105); Potassium 4.7 mmol/L (3.5-5.1); Protein, Total 6.9 g/dL (6.0-8.3); Sodium 136 mmol/L (136-145)
[2020-03-17] MEDS: Acetaminophen 650 MG/20.3 ML UDCUP PER TUBE PRN ×2 (04:02→16:23)
[2020-03-17] MEDS: Lorazepam 2 MG/ML VIAL SLOW IVP PRN (04:02)
--- NOTE | 2020-03-17 06:12 | PDOC.FM ---
- Subjective Subjective: Myoclonic jerks off sedation. Will open eyes and blink but no corneal reflex, does not track or follow commands. Still with cough reflex. Family given hospice information and continues to discuss goals of care and ultimate plan of care. - Objective Vital Signs & Weight: Vital Signs (12 hours) Temp Pulse Resp BP Pulse Ox 03/17/20 04:32 99.8 F H 03/17/20 04:27 95 166/101 H 03/17/20 04:02 101.7 F H 03/17/20 04:00 33 H 03/17/20 03:00 101.7 F H 03/17/20 02:08 90 157/96 H 03/17/20 02:00 26 H 03/17/20 00:00 24 H 03/16/20 23:00 99.4 F 03/16/20 22:05 87 146/93 H 03/16/20 22:00 23 H 03/16/20 20:00 25 H 98 03/16/20 19:44 90 157/94 H 03/16/20 19:00 100.2 F H 03/16/20 18:31 100.2 F H 03/16/20 18:25 108 H 157/96 H Weight Admit Weight 61.689 kg Weight 55.3 kg Most Recent Monitor Data Heart Rate from ECG 88 NIBP 158/97 NIBP BP-Mean 117 Respiration from ECG 36 SpO2 95 I&O: 03/15/20 03/16/20 03/17/20 06:59 06:59 06:59 Intake Total 1967 2023 447 Output Total 400 0 Balance 1567 Result Diagrams: 03/17/20 03:00 03/17/20 03:00 Phys Exam - Physical Examination sedated, myoclonic jerking ETT and OG in place, PERRL, opens eyes and blinks at times Neck: supple course BS R>L base Cardiovascular: RRR 3/6 systolic murmur at left sternal border Gastrointestinal: soft, no distention, positive bowel sounds Musculoskeletal: no edema +cough. No corneal reflex. Does not follow commands or track. Dx/Plan (1) Anoxic brain injury Status: Acute (2) ESRD on dialysis Code(s): N18.6 - END STAGE RENAL DISEASE; Z99.2 - DEPENDENCE ON RENAL DIALYSIS Status: Acute (3) Acute respiratory failure with hypoxia Code(s): J96.01 - ACUTE RESPIRATORY FAILURE WITH HYPOXIA Status: Acute - Plan Plan: 44yo M with h/o ESRD on HD, COPD, HTN who presented s/p ROSC, acute hypoxic respiratory failure 2/2 missed HD and volume overload, and anoxic brain injury #Anoxic brain injury 2/2 Cardiac arrest - CT Brain - no acute findings - Myoclonic jerks suppressed on propofol but immediately return off sedation - Neurology, Dr Perales consulted, appreciate recs, EEG with burst suppression, confirmed anoxic brain injury, poor prognosis - Routine neurochecks, seizure precautions - Overall very poor prognosis and very low potential for meaningful recovery - Family considering compassionate extubation, Palliative care assisting, plan for possible transition on Thursday. Patient daughter given hospice company list. #Acute hypoxic respiratory failure 2/2 volume overload from HD non-compliance, stable on ventilator - ESRD on HD (MWF) - missed HD prior to presentation - Intubated (03/11). SIMV + PS. Occasionally over-breaths vent with a rate of 8- 9 - Echo 02/25 with EF 55-60%, severe concentric LVH, mod-severe aortic regurg - Nephrology, consulted, Continued HD - Pulm, Dr Russell, consulted, supportive care, poor prognosis #Cardiac arrest s/p ROSC 2/2 above, episode of SVT - Patient requiring mechanical ventilation for respiratory support, no pressor support at this time - Run of SVT 03/12 with hypotension, s/p adenosine and now on Amio gtt. Continuous cardiac monitoring - Cards consulted, consider beta dwayne, no further recommendation at this time, poor prognosis #Aspiration Pneumonia s/p ROSC on Ventilator - WBC 22.7, procal 40 - CXR with DAKOTAH pneumonia - Started Zosyn 03/13, BCx NGTD, continue to monitor - Complete 7 day course of abx (d/c on 03/20) #Anemia - Acute on chronic - Hb 6.7 -> 8.5 s/p 1u pRBC on 03/15, monitor, no s/s acute bleed #Lactic Acidosis, resolved - LA 10.5 on arrival --> 3.2, likely 2/2 hypoxia #Type II NSTEMI 2/2 Cardiac Arrest - EKG SR with T wave inversions in V5-6, no ST elevation - Trop 0.263, 0.463, 0.826 - Medical management #ESRD on M/W/F HD - BUN/Cr 60/13 on admission - Nephrology, Dr. Olguin, apprec recs #HTN - Home BP meds, monitoring. #COPD - Not in acute exacerbation - SHARAD duonebs per pulm PCP: CC- None Code status: DNR ABx: Zosyn (03/13) IVFs: KVO VTE PPX: Heparin TID GI PPX: Protonix IV Lines: Left IJ (03/11) Vent Settings: SIMV + PS: 50% FiO2, 450TV, 5 PEEP, 10 PS Tube Feeds: 10cc/hr Sedation: Propofol Gtt: Amio Dispo: Admitted to CCU for continued supportive care. Anoxic brain injury. Prognosis very poor. Family continues to discuss with likely transition to hospice with comfort extubation first of next week. Apprec consultant technology recommendation and assistance. Addendum - Attending - Attending Attestation Date/Time: 03/17/20 9480 I personally evaluated the patient and discussed the management with Dr. Lu. I agree with the History, Examination, Assessment and Plan documented above with any addition or exceptions noted below. The patient continues to have myoclonic jerks. Pt with anoxic brain injury. I do not think pt will recover. Family is considering compassionate extubation/hospice.
[2020-03-17] MEDS: Amiodarone 450 MG, Admixture Fee 1 EACH in Dextrose 5% in Water 250 ML IVPB SCH ×2 (06:29→21:41)
[2020-03-17] MEDS: Propofol 1,000 MG/100 ML VIAL IV PRN ×2 (06:30→15:11)
--- NOTE | 2020-03-17 08:37 | RAD ---
Chest AP view INDICATION: Pneumonia COMPARISON: Prior exam dated March 16, 2020 FINDINGS: Lungs: There is worsening infrahilar opacity. There is persistent dense opacity in the left lower lo be. Cardiac silhouette: There is stable cardiomegaly Pulmonary vasculature: There is worsening pulmonary vascular congestion and central edema pattern Pleural spaces: There are worsening bilateral pleural effusion Upper abdomen: No abnormality seen. Osseous structures: No acute osseous abnormality. Additional findings: ET tube, gastric catheter and left IJ central venous catheter are similar appea ring. No pneumothorax is evident. IMPRESSION: 1. Worsening CHF or volume overload. 2. Worsening infrahilar opacities suspicious for edema. The dense opacity in left lower lobe may ref lect component pneumonia. 3. No pneumothorax.
[2020-03-17] MEDS: Heparin 5,000 UNITS/ML VIAL SC SCH ×3 (08:50→21:26)
[2020-03-17] MEDS: Pantoprazole 40 MG VIAL IVP SCH (08:50)
[2020-03-17] MEDS: hydrALAZINE 25 MG TAB PER TUBE SCH ×3 (08:51→21:26)
[2020-03-17] MEDS: Aspirin 81 mg Enteric Coated Tablet PER TUBE SCH (08:51)
[2020-03-17] MEDS: Folic Acid/Vit B Comp W-C PER TUBE SCH (08:51)
[2020-03-17] MEDS: NIFEdipine XL 60 MG TAB PO SCH (09:22)
[2020-03-17] MEDS: Piperacillin/Tazobactam 2.25 GM in Sodium Chloride 0.9% 100 ML IVPB SCH ×2 (09:23→21:26)
--- NOTE | 2020-03-17 11:35 | PRG ---
DATE OF SERVICE: 03/17/2020 SUBJECTIVE: A 44-year-old gentleman being seen for end-stage renal disease. The patient is resting. OBJECTIVE: GENERAL: The patient is awake and alert. VITAL SIGNS: Afebrile, pulse 98, breathing 16, blood pressure 120/75. HEENT: Head normocephalic and atraumatic. Eyes intact, no ulcers. Nose intact, no ulcers. Ears intact, no ulcers. NECK: Supple. No JVD. CHEST: Symmetrical and clear. CARDIOVASCULAR: Shows S1 and S2, no rub, no murmur. GASTROINTESTINAL: Abdomen is soft, bowel sounds positive. EXTREMITIES: Show no edema or ulcers. SKIN: Shows no rash or petechiae. MUSCULOSKELETAL: Shows no joint swelling or stiffness. GENITOURINARY: Shows no Craig or CVA tenderness. NEUROLOGIC: The patient is resting. LABORATORY DATA: Potassium 4.7. ASSESSMENT: 1. Stage 6 chronic kidney disease. No indication for dialysis. 2. Hypertension, stable. 3. Anemia, stable. Medication based on GFR appropriate. 4. Prognosis is poor. Job ID: [id number]
[2020-03-17 13:38] VITALS: BMI 19.1
--- NOTE | 2020-03-17 14:21 | PRG ---
DATE OF SERVICE: 03/17/2020 SUBJECTIVE: Herman Rahman has had no meaningful neurological improvement. He still intermittently opens his eyes, but does not blink to confrontation. He has twitching movements in both toes. OBJECTIVE: CHEST: He has equal breath sounds on chest exam. HEART: Regular rhythm. ABDOMEN: Soft. He has had no ventricular tachycardia events. LABORATORY DATA: White count 14.4, hemoglobin 8.5, platelets 235. Sodium 136, potassium 4.7, chloride 93, bicarb 22, BUN 78, creatinine 8.8. IMPRESSION: Status post arrest with severe anoxic/hypoperfusion brain injury with myoclonic jerking clinically. I met with the mother and explained to her that it is unlikely that he will recover to be functional if he survives. It is my feeling that it is unlikely he will survive. Job ID: [id number]
[2020-03-18] MEDS: Lorazepam 2 MG/ML VIAL SLOW IVP PRN ×2 (00:02→04:41)
[2020-03-18] MEDS: Propofol 1,000 MG/100 ML VIAL IV PRN ×2 (02:27→16:08)
[2020-03-18 04:43] LABS: ALT (SGPT) 28 U/L (8-55); AST (SGOT) 52 U/L (5-34); Alkaline Phosphatase 77 U/L (40-110); Anion Gap 25 mmol/L (10-20); BUN (Urea Nitrogen) 75 mg/dL (8.9-20.6); Bilirubin, Total 0.6 mg/dL (0.2-1.2); Calc. Creatinine Clearance 9 mL/min (70-130); Calcium 9.3 mg/dL (7.8-10.44); Carbon Dioxide 23 mmol/L (22-29); Chloride 91 mmol/L (98-107); Globulin 3.8 g/dL (2.4-3.5); Glucose 96 mg/dL (70-105); Potassium 4.8 mmol/L (3.5-5.1); Protein, Total 6.8 g/dL (6.0-8.3); Sodium 134 mmol/L (136-145)
[2020-03-18 05:09] LABS: Band 2 % (5-11); Hemoglobin 8.1 g/dL (14.0-18.0); Hypochromia SLIGHT = 6-15 cells (100X) (0-5/hpf); Lymphocytes 15 % (21-51); MDiff Complete? YES; Mean Corpuscular HGB CONC 33.5 g/dL (32.0-36.0); Mean Corpuscular Hemoglobin 28.2 pg (27.0-31.0); Mean Platelet Volume 8.9 fL (7.4-10.4); Monocytes 3 % (0-10); Neutrophil 80 % (42-75); Platelet Count 258 thou/uL (130-400); Platelet Morphology Comment Appears Adequate; RBC Distribution Width 16.8 % (11.5-14.5); Red Blood Cell (RBC) Count 2.86 mill/uL (4.70-6.10); White Blood Cell (WBC) Count 21.7 thou/uL (4.8-10.8)
[2020-03-18] MEDS: Acetaminophen 650 MG/20.3 ML UDCUP PER TUBE PRN ×3 (05:31→21:12)
--- NOTE | 2020-03-18 06:05 | PDOC.FM ---
- Subjective Subjective: No acute events overnight. Patient still with myoclonic jerks, opens eyes spontenously, but will not follow commands or track. - Objective MAR Reviewed: Yes Vital Signs & Weight: Vital Signs (12 hours) Temp Pulse Resp BP Pulse Ox 03/18/20 05:00 101 F H 03/18/20 04:00 100.6 F H 30 H 03/18/20 02:00 27 H 03/18/20 00:00 100.9 F H 27 H 03/17/20 22:00 17 03/17/20 21:26 86 173/100 H 03/17/20 20:30 96 03/17/20 20:00 99.8 F H 27 H Weight Admit Weight 61.689 kg Weight 55 kg Most Recent Monitor Data Heart Rate from ECG 86 NIBP 169/96 NIBP BP-Mean 120 Respiration from ECG 30 SpO2 98 I&O: 03/16/20 03/17/20 03/18/20 06:59 06:59 06:59 Intake Total 2023 882 1342 Output Total 0 300 Balance 2023 882 1042 Result Diagrams: 03/18/20 04:08 03/18/20 04:08 Phys Exam - Physical Examination On sedation. Myoclonic jerking noted. No corneal reflex. ETT and OG in place. Left IJ c/d/i Course BS BL Cardiovascular: RRR 3/6 systolic mumur best heard at left sternal border Gastrointestinal: soft, no distention, positive bowel sounds Musculoskeletal: no edema myoclonic jerking Dx/Plan (1) Anoxic brain injury Status: Acute (2) ESRD on dialysis Code(s): N18.6 - END STAGE RENAL DISEASE; Z99.2 - DEPENDENCE ON RENAL DIALYSIS Status: Acute (3) Acute respiratory failure with hypoxia Code(s): J96.01 - ACUTE RESPIRATORY FAILURE WITH HYPOXIA Status: Acute - Plan Plan: 44yo M with h/o ESRD on HD, COPD, HTN who presented s/p ROSC, acute hypoxic respiratory failure 2/2 missed HD and volume overload, and anoxic brain injury #Anoxic brain injury 2/2 Cardiac arrest - CT Brain - no acute findings - Continuous Myoclonic jerks - Neurology, Dr Perales consulted, appreciate recs, EEG with burst suppression, confirmed anoxic brain injury, poor prognosis - Routine neurochecks, seizure precautions - Overall very poor prognosis and very low potential for meaningful recovery - Family considering compassionate extubation, Palliative care assisting, plan for possible transition on Thursday. Patient daughter given hospice company list. #Acute hypoxic respiratory failure 2/2 volume overload from HD non-compliance, stable on ventilator - ESRD on HD (MWF) - missed HD prior to presentation - Intubated (03/11). SIMV + PS. Occasionally over-breaths vent with a rate of 8- 9 - Echo 02/25 with EF 55-60%, severe concentric LVH, mod-severe aortic regurg - Nephrology, consulted, Continued HD - Pulm, Dr Russell, consulted, supportive care, poor prognosis #Cardiac arrest s/p ROSC 2/2 above, episode of SVT - Patient requiring mechanical ventilation for respiratory support, no pressor support at this time - Run of SVT 03/12 with hypotension, s/p adenosine and now on Amio gtt. Continuous cardiac monitoring - Cards consulted, consider beta dwayne, no further recommendation at this time, poor prognosis #Aspiration Pneumonia s/p ROSC on Ventilator - WBC 22.7, procal 40 - CXR with DAKOTAH pneumonia - Started Zosyn 03/13, BCx NGTD, continue to monitor - Complete 7 day course of abx (d/c on 03/20) #Anemia - Acute on chronic - Hb 6.7 -> 8.1 s/p 1u pRBC on 03/15, monitor, no s/s acute bleed #Lactic Acidosis, resolved - LA 10.5 on arrival --> 3.2, likely 2/2 hypoxia #Type II NSTEMI 2/2 Cardiac Arrest - EKG SR with T wave inversions in V5-6, no ST elevation - Trop 0.263, 0.463, 0.826 - Medical management #ESRD on M/W/F HD - BUN/Cr 60/13 on admission - Nephrology, Dr. Olguin, apprec recs #HTN - Home BP meds, monitoring. #COPD - Not in acute exacerbation - SHARAD adela per pulm PCP: CC- None Code status: DNR ABx: Zosyn (03/13) IVFs: KVO VTE PPX: Heparin TID GI PPX: Protonix IV Lines: Left IJ (03/11), Rectal Tube Vent Settings: SIMV + PS: 50% FiO2, 450TV, 5 PEEP, 10 PS Tube Feeds: 10cc/hr Sedation: Propofol Gtt: Amio Dispo: Admitted to CCU for continued supportive care. Anoxic brain injury. Prognosis very poor. Family continues to discuss with likely transition to hospice with comfort extubation Thursday. Apprec regional sales consultant recommendation and assistance. Addendum - Attending - Attending Attestation Date/Time: 03/18/20 2596 I personally evaluated the patient and discussed the management with Dr. Lu. I agree with the History, Examination, Assessment and Plan documented above with any addition or exceptions noted below. Patient has fever, leukocytosis. Adding vanc. Prognosis still grave. Family is deciding on goals of care.
--- NOTE | 2020-03-18 08:39 | RAD ---
Chest AP view INDICATION: 44-year-old male with history of pneumonia COMPARISON: March 17, 2020 FINDINGS: Lungs: Bilateral infrahilar airspace disease is stable Cardiac silhouette: Cardiomegaly is stable Pulmonary vasculature: Pulmonary vascular congestion is stable Pleural spaces: Small bilateral pleural effusions have slightly decreased in size Upper abdomen: No abnormality seen. Osseous structures: No acute osseous abnormality. Additional findings: ET tube, left IJ central venous catheter and gastric catheter unchanged. No pne umothorax. IMPRESSION: Stable bilateral infrahilar airspace disease. Improving bilateral pleural effusions. Persistent cardi omegaly and pulmonary vascular congestion.
[2020-03-18] MEDS: Heparin 5,000 UNITS/ML VIAL SC SCH ×3 (08:52→20:38)
[2020-03-18] MEDS: Pantoprazole 40 MG VIAL IVP SCH (08:52)
[2020-03-18] MEDS: Vancomycin 1 GM in Premix Bag 1 BAG IVPB SCH (08:53)
[2020-03-18] MEDS: Piperacillin/Tazobactam 2.25 GM in Sodium Chloride 0.9% 100 ML IVPB SCH ×2 (08:53→20:37)
[2020-03-18] MEDS: hydrALAZINE 25 MG TAB PER TUBE SCH ×3 (08:54→20:37)
[2020-03-18] MEDS: Folic Acid/Vit B Comp W-C PER TUBE SCH (08:54)
[2020-03-18] MEDS: Scopolamine 1.5 mg/72 hour Patch TD SCH (08:54)
[2020-03-18] MEDS: Aspirin 81 mg Enteric Coated Tablet PER TUBE SCH (08:55)
[2020-03-18] MEDS: NIFEdipine XL 60 MG TAB PO SCH (09:14)
--- NOTE | 2020-03-18 11:16 | PRG ---
DATE OF SERVICE: SUBJECTIVE: A 44-year-old male being seen for end-stage kidney disease. The patient is resting. PHYSICAL EXAMINATION: General: The patient is awake and alert. VITAL SIGNS: Afebrile, pulse 75, breathing at 16, blood pressure 160/95. HEENT: Head normocephalic and atraumatic. Eyes intact, no ulcers. Nose intact, no ulcers. Ears intact, no ulcers. Neck: Supple. No JVD. Chest: Symmetrical and clear. Cardiovascular: Shows S1 and S2, no rub, no murmur. Gastrointestinal: Abdomen is soft, bowel sounds positive. Extremities: Show no edema or ulcers. Skin: Shows no rash or petechiae. Musculoskeletal: Shows no joint swelling or stiffness. Genitourinary: Shows no Craig or CVA tenderness. Neurologic: The patient is resting. LABORATORY DATA: Show potassium is 4.8. ASSESSMENT: Stage 6 chronic kidney disease, stable. Hypertension, stable. Anemia, stable. Altered mental status, management per primary team. Job ID: [id number]
--- NOTE | 2020-03-18 20:47 | PRG ---
DATE OF SERVICE: 03/18/2020 SUBJECTIVE: Mr. Rahman still has no meaningful neurological improvement. He intermittently opens his eyes. He did blink to confrontation today but not to true confrontation, but just touching his eyelashes led to a blink. His hemodynamics have been stable. OBJECTIVE: LUNGS: Clear. HEART: Regular rhythm S1, S2 are normal. ABDOMEN: Soft and nontender. EXTREMITIES: Without edema. LABORATORY DATA: White count 21.7, hemoglobin 8.1, platelets 258. Sodium 134, potassium 4.8, chloride 91, bicarb 23, BUN 75, creatinine 7.75. IMPRESSION: Respiratory failure associated with [id number] arrest with burst suppression reportedly on EEG and very poor neurological function. Somehow the mother was under the impression that he was having a tracheostomy and a PEG. That was not what I explained to her. I did explain that if they wanted to continue aggressively a tracheostomy and a PEG this week, would be the next step, but I have also explained that there is no guarantee this would lead to weaning from mechanical ventilation. I have explained that he cannot be indefinitely mechanically ventilated. No one in a coherent state would want indefinite mechanical ventilation in a vegetative state, which is where he is now. My opinion is that he will not successfully wean from mechanical ventilation based on his poor neurological function and exam findings of severe weakness. I have not seen the at all. The mother has been sitting in the room continuously and that is who all my interaction has been with. Obviously, if he is going to have a tracheostomy and a PEG, it has to be with the approval of the who is power of health care. Based on his EEG findings, he has a 50% chance of dying within the next 30 days no matter what we do. I do not feel he will successfully wean from ventilation even with the trach. Job ID: [id number]
[2020-03-19] MEDS: Propofol 1,000 MG/100 ML VIAL IV PRN ×2 (03:06→10:57)
[2020-03-19] MEDS: Amiodarone 450 MG, Admixture Fee 1 EACH in Dextrose 5% in Water 250 ML IVPB SCH (03:58)
[2020-03-19 04:41] LABS: #Lymphocytes 0.9 thou/uL (1.20-3.40); #Monocytes 1.5 thou/uL (0.11-0.59); #Neutrophils 15.4 thou/uL (1.40-6.50); %Basophils 0.2 % (0.0-1.0); %Eosinophils 0.3 % (0.0-10.0); %Monocytes 8.6 % (0.0-10.0); Hemoglobin 7.6 g/dL (14.0-18.0); Mean Corpuscular HGB CONC 33.9 g/dL (32.0-36.0); Mean Corpuscular Hemoglobin 28.4 pg (27.0-31.0); Mean Corpuscular Volume 83.9 fL (78.0-98.0); Platelet Count 305 thou/uL (130-400); RBC Distribution Width 16.8 % (11.5-14.5); Red Blood Cell (RBC) Count 2.66 mill/uL (4.70-6.10); White Blood Cell (WBC) Count 17.9 thou/uL (4.8-10.8)
[2020-03-19 05:02] LABS: ALT (SGPT) 24 U/L (8-55); AST (SGOT) 40 U/L (5-34); Albumin 2.9 g/dL (3.5-5.0); Alkaline Phosphatase 61 U/L (40-110); Anion Gap 28 mmol/L (10-20); BUN (Urea Nitrogen) 99 mg/dL (8.9-20.6); Bilirubin, Total 0.5 mg/dL (0.2-1.2); Calc. Creatinine Clearance 8 mL/min (70-130); Calcium 9.1 mg/dL (7.8-10.44); Carbon Dioxide 20 mmol/L (22-29); Chloride 92 mmol/L (98-107); Globulin 3.5 g/dL (2.4-3.5); Glucose 88 mg/dL (70-105); Potassium 4.8 mmol/L (3.5-5.1); Protein, Total 6.4 g/dL (6.0-8.3); Sodium 135 mmol/L (136-145)
--- NOTE | 2020-03-19 07:25 | PDOC.FM ---
- Subjective Subjective: No acute events overnight. Myoclonic jerking. Opens eyes and blinks but no tracking or purposeful movements. Daughter still with plan to transition to hospice. - Objective MAR Reviewed: Yes Vital Signs & Weight: Vital Signs (12 hours) Temp Pulse Resp 03/19/20 06:00 17 03/19/20 04:00 99.3 F 20 03/19/20 02:00 17 03/19/20 00:00 99.6 F 20 03/18/20 22:00 17 03/18/20 20:37 91 03/18/20 20:00 102.3 F H 17 Weight Admit Weight 61.689 kg Weight 54.7 g Most Recent Monitor Data Heart Rate from ECG 72 NIBP 155/93 NIBP BP-Mean 113 Respiration from ECG 21 SpO2 99 I&O: 03/18/20 03/19/20 03/20/20 06:59 06:59 06:59 Intake Total 1342 1322 Output Total 300 260 Balance 1042 1062 Result Diagrams: 03/19/20 04:00 03/19/20 04:00 Phys Exam - Physical Examination Constitutional: NAD (myoclonic jerking) ETT and OG in place Neck: supple Left IJ c/d/i Course BS BL Cardiovascular: RRR 3/6 systolic murmur at left sternal border Gastrointestinal: soft, no distention, positive bowel sounds 1+ pitting BL feet Opens eyes, blinks. Does not follow commands, no purposeful movements Dx/Plan (1) Anoxic brain injury Status: Acute (2) ESRD on dialysis Code(s): N18.6 - END STAGE RENAL DISEASE; Z99.2 - DEPENDENCE ON RENAL DIALYSIS Status: Acute (3) Acute respiratory failure with hypoxia Code(s): J96.01 - ACUTE RESPIRATORY FAILURE WITH HYPOXIA Status: Acute - Plan Plan: 44yo M with h/o ESRD on HD, COPD, HTN who presented s/p ROSC, acute hypoxic respiratory failure 2/2 missed HD and volume overload, and anoxic brain injury #Anoxic brain injury 2/2 Cardiac arrest - CT Brain - no acute findings - Continuous Myoclonic jerks - Neurology, Dr Perales consulted, appreciate recs, EEG with burst suppression, confirmed anoxic brain injury, poor prognosis - Routine neurochecks, seizure precautions - Overall very poor prognosis and very low potential for meaningful recovery - Family considering compassionate extubation, Palliative care assisting, plan for possible transition on today. Patient daughter given hospice company list. #Acute hypoxic respiratory failure 2/2 volume overload from HD non-compliance, stable on ventilator - ESRD on HD (MWF) - missed HD prior to presentation - Intubated (03/11). SIMV + PS. Rice snot appear ot be weanable from vent - Echo 02/25 with EF 55-60%, severe concentric LVH, mod-severe aortic regurg - Nephrology, consulted, Continued HD - Pulm, Dr Russell, consulted, supportive care, poor prognosis #Cardiac arrest s/p ROSC 2/2 above, episode of SVT - Patient requiring mechanical ventilation for respiratory support, no pressor support at this time - Run of SVT 03/12 with hypotension, s/p adenosine and now on Amio gtt. Continuous cardiac monitoring - Cards consulted, consider beta dwayne, no further recommendation at this time, poor prognosis #Aspiration Pneumonia s/p ROSC on Ventilator - WBC 22.7, procal 40 - CXR with DAKOTAH pneumonia - Started Zosyn 03/13, BCx NGTD, continue to monitor - Complete 7 day course of abx (d/c on 03/20) - Started Vanc (03/18) due to continued fevering and leukocytosis. Repeat BCx obtained. #Anemia - Acute on chronic - Hb 6.7 -> 8.1 s/p 1u pRBC on 03/15, monitor, no s/s acute bleed - Hb 7.6 this AM, consider transfusion if patient not transitioning to hospice #Lactic Acidosis, resolved - LA 10.5 on arrival --> 3.2, likely 2/2 hypoxia #Type II NSTEMI 2/2 Cardiac Arrest - EKG SR with T wave inversions in V5-6, [address] ST elevation - Trop 0.263, 0.463, 0.826 - Medical management #ESRD on M/W/F HD - BUN/Cr 60/13 on admission - Nephrology, Dr. Olguin, apprec recs #HTN - Home BP meds, monitoring. #COPD - Not in acute exacerbation - SHARAD duonebs per pulm PCP: CC- None Code status: DNR ABx: Zosyn (03/13), Vanc (03/18) IVFs: KVO VTE PPX: Heparin TID GI PPX: Protonix IV Lines: Left IJ (03/11), Rectal Tube Vent Settings: SIMV + PS: 50% FiO2, 450TV, 5 PEEP, 10 PS Tube Feeds: 10cc/hr Sedation: Propofol Gtt: Amio Dispo: Admitted to CCU for continued supportive care. Anoxic brain injury. Prognosis very poor. Family continues to discuss with likely transition to hospice with comfort extubation today. Apprec telecom sales consultant recommendation and assistance. Addendum - Attending - Attending Attestation Date/Time: 03/19/20 1211 I personally evaluated the patient and discussed the management with Dr. Lu. I agree with the History, Examination, Assessment and Plan documented above with any addition or exceptions noted below. Poor prognosis, family meeting today to discuss plan of care given his severe anoxic brain injury.
--- NOTE | 2020-03-19 08:06 | RAD ---
XR Chest 1 View Portable History: Pneumonia Comparison: Radiograph prior day Findings: Endotracheal tube tip at the clavicular level. Left IJ central venous catheter tip projects over the inferior SVC. Heart size is enlarged. Moderate layering pleural effusions. Parenchymal opacities are similar. No pneumothorax or pneumomedi astinum. Impression: Similar examination of the chest without significant worsening lung aeration.
[2020-03-19 08:54] LABS: Vancomycin, Trough 18.6 ug/mL
[2020-03-19] MEDS: NIFEdipine XL 60 MG TAB PO SCH (09:11)
[2020-03-19] MEDS: Heparin 5,000 UNITS/ML VIAL SC SCH ×2 (09:22→14:54)
[2020-03-19] MEDS: hydrALAZINE 25 MG TAB PER TUBE SCH ×2 (09:23→14:55)
[2020-03-19] MEDS: Piperacillin/Tazobactam 2.25 GM in Sodium Chloride 0.9% 100 ML IVPB SCH (09:24)
[2020-03-19] MEDS: Pantoprazole 40 MG VIAL IVP SCH (09:24)
[2020-03-19] MEDS: Aspirin 81 mg Enteric Coated Tablet PER TUBE SCH (09:25)
[2020-03-19] MEDS: Folic Acid/Vit B Comp W-C PER TUBE SCH (09:26)
[2020-03-19] MEDS: Vancomycin 1 GM in Premix Bag 1 BAG IVPB SCH (09:26)
[2020-03-19] MEDS ORDERED: HOLD VANCOMYCIN FOR LEVEL >20 FS SCH (11:45)
[2020-03-19] MEDS ORDERED: Vancomycin 1 GM in Premix Bag 1 BAG IVPB SCH (11:45)
[2020-03-19] MEDS ORDERED: Vancomycin HCl 750 MG in Sodium Chloride 0.9% 250 ML 250 ML IVPB SCH (11:45)
[2020-03-19] MEDS ORDERED: Vancomycin HCl 250 MG in Sodium Chloride 0.9% 100 ML IVPB SCH (11:45)
[2020-03-19] MEDS ORDERED: Vancomycin HCl 500 MG in Sodium Chloride 0.9% 100 ML IVPB SCH (11:45)
--- NOTE | 2020-03-19 12:25 | PRG ---
DATE OF SERVICE: 03/19/2020 SUBJECTIVE: Herman Rahman has not improved neurologically. He still has myoclonic jerking. OBJECTIVE: VITAL SIGNS: His blood pressure 154/92, heart rates in the 70s, respiratory rates in the teens to low 20s. LUNGS: Unchanged. HEART: Unchanged. ABDOMEN: Unchanged. LABORATORY DATA: White count 17.9, hemoglobin 7.6, platelets 305. Electrolytes are unremarkable. BUN 99, creatinine 9.39. IMPRESSION: 1. Respiratory failure. 2. Anemia of chronic disease. 3. Status post [id number]-[id number] arrest and severe anoxic brain injury. Family wants to proceed with tracheostomy and PEG per my discussions with mother. I doubt trach and a PEG. Job ID: [id number]
[2020-03-19 14:45] VITALS: BP 155/91
[2020-03-19 15:59] VITALS: TEMP 99.8
--- NOTE | 2020-03-20 22:21 | HP ---
CHIEF COMPLAINT: Anoxic brain injury, transitioned to hospice care after terminal extubation on 03/19/2020. HISTORY OF PRESENT ILLNESS: He is not verbal. No family at bedside. Reviewed hospital records and discussed the case with nurse and hospice nurse. He is having shallow respirations. Not responsive. Seems comfortable. Myoclonic jerking improved with scheduled benzodiazepines. He was hospitalized on 03/11/2020 after family found them unresponsive. EMS was called. He was in cardiac arrest. CPR performed. There was return of spontaneous circulation. He was intubated. He was transferred to the ICU. Consults include Pulmonology, Nephrology, Neurology, and Cardiology. EEG was done. Neurology confirmed anoxic brain injury. He was treated with 7-day course of antibiotics for aspiration pneumonia, left upper lobe. He had prior hospitalization earlier this month for pneumonia also. He did not make any improvement and after Neurology confirmed the diagnosis, family agreed to hospice care. He was terminally extubated on 03/19/2020. PAST MEDICAL HISTORY: 1. End-stage renal failure with history of hemodialysis and anemia. 2. Hypertension. 3. COPD. PAST SURGICAL HISTORY: Mentioned of surgery for ruptured kidney. FAMILY HISTORY: Noncontributory. SOCIAL HISTORY: Mentioned of marijuana use on chart. No alcohol or tobacco use. ALLERGIES: NO KNOWN DRUG ALLERGIES. MEDICATIONS: Reviewed on chart. OBJECTIVE: VITAL SIGNS: Temperature 98.4, pulse 73, respiratory rate 18, blood pressure 148/81, and oxygenation 95% on oxygen. HEENT: Normocephalic, atraumatic. Oral mucosa is moist. LUNGS: Coarse breath sound throughout with shallow, agonal respirations. HEART: Regular rate and rhythm, but difficult to auscultate due to coarse breath sounds. ABDOMEN: Soft, nondistended. Hypoactive bowel sounds. : Craig is in place. Dark brown urine. Rectal tube is in place. EXTREMITIES: No edema. PSYCHIATRIC: Not responsive. ASSESSMENT: 1. Anoxic brain injury. He was found down by family. CPR performed. Intubated. Diagnosis of acute hypoxic respiratory failure with aspiration pneumonia. Neurology consulted, anoxic brain injury diagnosed. Daughter opted for hospice. He was terminally extubated on 03/19/2020. He has shallow agonal respirations. Prognosis is terminal. 2. Secondary diagnosis includes end-stage renal failure with history of dialysis and anemia, hypertension, chronic obstructive pulmonary disease. PLAN: We will continue comfort medications and follow along with hospice. Prognosis is terminal. Job ID: [id number]
--- NOTE | 2020-03-23 17:47 | DIS ---
DATE OF ADMISSION: 03/11/2020 DATE OF DISCHARGE: 03/19/2020 RESIDENT: Renan Lu MD ADMITTING ATTENDING: Paris Collazo MD DISCHARGE ATTENDING: Eleuterio Ayala MD CONSULTS: 1. Pulmonology, Dr. Russell. 2. Nephrology, Dr. Rosa. 3. Neurology, Dr. Perales. 4. Cardiology, Dr. Montelongo. PROCEDURES: 1. Brain CT performed on 03/11/2020, demonstrating no acute intracranial process. 2. Intubation on 03/11/2020. 3. Transfusion 1 unit of packed red blood cells on 03/15/2020. 4. Left IJ placed on 03/11/2020. PRIMARY DIAGNOSES: 1. Anoxic brain injury secondary to cardiac arrest. 2. Acute hypoxic respiratory failure secondary to volume overload from hemodialysis noncompliance. 3. Cardiac arrest, status post return of spontaneous circulation. 4. Aspiration pneumonia. SECONDARY DIAGNOSES: 1. Anemia. 2. Lactic acidosis. 3. Type 2 imv-VD-zjwlbxgbv myocardial infarction. 4. Supraventricular tachycardia. 5. End-stage renal disease, on hemodialysis. 6. Hypertension. 7. Chronic obstructive pulmonary disease. DISCHARGE MEDICATIONS: 1. Imdur 30 mg p.o. daily. 2. Hydralazine 100 mg p.o. t.i.d. 3. Coreg 25 mg p.o. b.i.d. 4. Multivitamin one tablet daily. 5. Aspirin 81 mg p.o. daily. 6. Procardia XL 60 mg p.o. daily. 7. Amlodipine 10 mg p.o. daily. DISCONTINUED MEDICATIONS: None. HISTORY OF PRESENT ILLNESS AND HOSPITAL COURSE: The patient is a 44-year-old Afro [place] male who initially presented via EMS after being found unresponsive at home. The patient has a history of COPD; end-stage renal disease, on hemodialysis; and hypertension. When EMS arrived, they found the patient with agonal breathing and bradycardic arrest with return of spontaneous circulation within 5 minutes of CPR. In the emergency department, the patient was hypotensive, hypoxic, subsequently intubated with a central line placed with pressors started. The patient had myoclonic jerking and thus was started on sedation and Nephrology and Pulmonology were consulted from the emergency department. The patient was then admitted to the ICU on the ventilator for further evaluation and management. Regarding the patient's respiratory status, the patient was on the ventilator the patient had volume overload secondary to missed hemodialysis. The patient received hemodialysis throughout the entire hospital stay from his dry cleaner presser. The patient had an echocardiogram performed on 02/25 that showed an EF of 55% to 60%. The patient also was found to have an aspiration pneumonia and was treated with a course of antibiotics. The patient was admitted to be weaned from the vent during his entire hospitalization and could be ventilation dependent. Neurology was consulted, who performed an EEG, which showed burst suppression confirming anoxic brain injury with overall very poor prognosis and unlikely recovery. The patient continued to have myoclonic jerking throughout his entire hospitalization. He did not follow any commands when off sedation, did not track, and had no recovery of neurologic function. CT brain showed no acute findings. The patient was continued on sedation for comfort. The patient did have an sbibj-uf-[id number] anemia that did require 1 unit of packed red blood cells transfusion. The patient also presented with an NSTEMI secondary to cardiac arrest. This has been managed medically. Earlier on his hospitalization, the patient had a run of SVT with hypotension and was started on amiodarone drip and given multiple rounds of adenosine. Cardiology was consulted with recommendations to continue the drip with overall very poor prognosis and stated family discussions should be made on goals of care. All consultants evaluated the patient and stated that his prognosis was very poor and he had very low to no likelihood of having significant neurologic recovery. The patient would be ventilator dependent for the rest of his life. These findings were discussed with the patient at length through multiple family meetings. Palliative Care assisted. The patient's family initially would like to continue supportive care and monitoring. After a week of ventilator support, cardiac support, dialysis, continue antibiotic therapy. Extensive family discussion was had regarding goals of care. The patient's daughter who is POA as well as his mother and sister were present for the discussions and it was determined that the patient's family desired to proceed with hospice and comfort care with compassionate extubation. All questions were answered by primary team and consultants. Hospice was consulted, who came and evaluated the patient and accepted the patient for admission. At the time of discharge, the patient was stable and transferred to hospice care for compassionate extubation and comfort care. DISPOSITION: Poor prognosis, guarded, but stable. DISCHARGE INSTRUCTIONS: 1. Location: Inpatient hospice. 2. Diet: Tube feeds for comfort. 3. Followup: The patient was discharged to hospice for comfort care. Job ID: [id number]
--- NOTE | 2020-03-24 16:30 | EKG ---
Test Reason : Blood Pressure : / mmHG Vent. Rate : 067 BPM Atrial Rate : 067 BPM P-R Int : 190 ms QRS Dur : 108 ms QT Int : 458 ms P-R-T Axes : 056 -07 087 degrees QTc Int : 483 ms Normal sinus rhythm Possible Left atrial enlargement Incomplete right bundle branch block Left ventricular hypertrophy Nonspecific T wave abnormality Prolonged QT Abnormal ECG #2 Confirmed by FERNY Thomason, EDILIA ([id number]), news editor ALEXYS ELLIS ([id number]) on 03/24/2020 4:29:54 PM Referred By: Confirmed By:EDILIA ISAACS M.D.
--- NOTE | 2020-03-24 16:30 | EKG ---
Test Reason : ROSC Blood Pressure : / mmHG Vent. Rate : 081 BPM Atrial Rate : 081 BPM P-R Int : 296 ms QRS Dur : 116 ms QT Int : 374 ms P-R-T Axes : 045 013 092 degrees QTc Int : 434 ms Sinus rhythm with 1st degree A-V block Possible Left atrial enlargement Left ventricular hypertrophy with QRS widening and repolarization abnormality Abnormal ECG Confirmed by FERNY Thomason, EDILIA ([id number]), school photograph editor ALEXYS ELLIS ([id number]) on 03/24/2020 4:29:45 PM Referred By: Confirmed By:EDILIA ISAACS M.D.
== END 2020-03-19 16:08 | disposition hospice, inpatient (51) | DRG 207 ==
LOC: ERS 11:25 → CCU 13:07
PROVIDERS: ADMIT Family Medicine; ATTEND Family Medicine
PROC: 0D9670Z Drainage of Stomach with Drainage Device, Via Natural or Artificial Opening (ICD-10-PCS; principal; 2020-03-11)
PROC: 5A1955Z Respiratory Ventilation, Greater than 96 Consecutive Hours (ICD-10-PCS; 2020-03-11)
PROC: 3E033XZ Introduction of Vasopressor into Peripheral Vein, Percutaneous Approach (ICD-10-PCS; 2020-03-11)
PROC: 0BH17EZ Insertion of Endotracheal Airway into Trachea, Via Natural or Artificial Opening (ICD-10-PCS; 2020-03-11)
PROC: 02HV33Z Insertion of Infusion Device into Superior Vena Cava, Percutaneous Approach (ICD-10-PCS; 2020-03-11)
PROC: 30233N1 Transfusion of Nonautologous Red Blood Cells into Peripheral Vein, Percutaneous Approach (ICD-10-PCS; 2020-03-15)
DX: J96.01 Acute respiratory failure with hypoxia (principal); N18.6 End stage renal disease; I46.9 Cardiac arrest, cause unspecified; I21.A1 Myocardial infarction type 2; J69.0 Pneumonitis due to inhalation of food and vomit; E87.2 Acidosis; G93.1 Anoxic brain damage, not elsewhere classified; I50.22 Chronic systolic (congestive) heart failure; I13.2 Hypertensive heart and chronic kidney disease with heart failure and with stage 5 chronic kidney disease, or end stage renal disease; I47.1 Supraventricular tachycardia; Q61.3 Polycystic kidney, unspecified; Z66 Do not resuscitate; Z51.5 Encounter for palliative care; F31.9 Bipolar disorder, unspecified; F41.9 Anxiety disorder, unspecified; J44.9 Chronic obstructive pulmonary disease, unspecified; Z20.828 Contact with and (suspected) exposure to other viral communicable diseases; F20.9 Schizophrenia, unspecified; Z78.1 Physical restraint status; Z99.2 Dependence on renal dialysis; Z79.82 Long term (current) use of aspirin; Z79.899 Other long term (current) drug therapy; Z79.51 Long term (current) use of inhaled steroids; Z79.2 Long term (current) use of antibiotics; D63.1 Anemia in chronic kidney disease; Z91.15 Patient's noncompliance with renal dialysis; Z83.3 Family history of diabetes mellitus; Z82.49 Family history of ischemic heart disease and other diseases of the circulatory system
CPT/HCPCS: 0240U; 31500; 36415; 36430; 36556; 36600; 51702; 70450; 71045; 80053; 80202; 82553; 82805; 83605; 83735; 84100; 84145; 84484; 85025; 86850; 86900; 86901; 87040; 90935; 93005; 93010; 94002; 94003; 94640; 95816; 95819; 95957; 96365; 96366; 96368; 96375; 96376; 99292; C9113; G0257; J0153; J0282; J1644; J2060; J2270; J2543; J2704; J3010; J3370; J3490; J7070; J7620; P9016

== ENCOUNTER 2020-03-19 16:22 | Inpatient (IN) | payer OTHER ==
[2020-03-19] MEDS ORDERED: Morphine 4 MG/ML VIAL SLOW IVP PRN ×2 (16:40→16:42)
[2020-03-19] MEDS ORDERED: Morphine 4 MG/ML VIAL ONE (16:41)
[2020-03-19] MEDS ORDERED: Lorazepam 2 MG/ML VIAL ONE (16:41)
[2020-03-19] MEDS ORDERED: Lorazepam 2 MG/ML VIAL SLOW IVP PRN ×2 (16:42→16:43)
[2020-03-19] MEDS ORDERED: Ondansetron PF 4 MG/2 ML Vial IVP PRN (16:45)
[2020-03-19] MEDS: Lorazepam 2 MG/ML VIAL SLOW IVP SCH ×3 (16:51→21:56)
[2020-03-19] MEDS: Morphine 4 MG/ML VIAL SLOW IVP SCH ×3 (16:53→21:55)
[2020-03-19] MEDS ORDERED: Scopolamine 1.5 mg/72 hour Patch TOP SCH (17:00)
[2020-03-20] MEDS: Morphine 4 MG/ML VIAL SLOW IVP SCH ×12 (00:59→22:19)
[2020-03-20] MEDS: Lorazepam 2 MG/ML VIAL SLOW IVP SCH ×12 (00:59→22:17)
[2020-03-20] MEDS: diphenhydrAMINE 50 MG/ML VIAL IVP PRN ×2 (01:00→18:11)
[2020-03-20] MEDS ORDERED: Acetaminophen 650 MG Suppository PR PRN (21:01)
[2020-03-21] MEDS: Morphine 4 MG/ML VIAL SLOW IVP SCH ×7 (00:22→12:09)
[2020-03-21] MEDS: Lorazepam 2 MG/ML VIAL SLOW IVP SCH ×7 (00:24→12:18)
[2020-03-21 08:21] VITALS: BP 180/107; TEMP 99.9
[2020-03-21] MEDS: diphenhydrAMINE 50 MG/ML VIAL IVP PRN (08:26)
== END 2020-03-21 13:05 | disposition expired | DRG 951 ==
LOC: CCU 16:22 → T4-A 23:18
PROVIDERS: ADMIT Family Medicine; ATTEND Family Medicine
DX: Z51.5 Encounter for palliative care (principal); N18.6 End stage renal disease; J96.01 Acute respiratory failure with hypoxia; I21.A1 Myocardial infarction type 2; I12.0 Hypertensive chronic kidney disease with stage 5 chronic kidney disease or end stage renal disease; G93.1 Anoxic brain damage, not elsewhere classified; E87.2 Acidosis; J44.9 Chronic obstructive pulmonary disease, unspecified; Z99.2 Dependence on renal dialysis; Z79.82 Long term (current) use of aspirin; Z79.899 Other long term (current) drug therapy; Z79.51 Long term (current) use of inhaled steroids; Z79.2 Long term (current) use of antibiotics
CPT/HCPCS: J1200; J2060; J2270